=== PATIENT | female | born 1945 | race Caucasian/White ===

== ENCOUNTER 2022-04-30 09:17 | Inpatient (IN) | payer MEDICARE, SELFPAY ==
[2022-04-30] VITALS (50 sets, daily range): BP systolic 87–172; BP diastolic 43–131; PULSE 45–77; RESP 5–32; TEMP 36.4–37.5; O2SAT 93–100
--- NOTE | 2022-04-30 09:15 | RT.EKG_ITS ---
APPROVED REPORT Exam: Resting ECG Reason for Exam: CHEST PAIN Patient Location: E HR:59 bpm ECG Measurements Heart Rate 59 AXIS [place] 134 P 62 QRSd 91 QRS 20 QT 412 T 46 QTc 410 Conclusion Sinus bradycardia...rate< [address] elevation, lateral leads...ST >0.06mV, I aVL V5 V6. Sinus. T wave inversion in V1-3. No STEMI. No old EKG to compare.
[2022-04-30] MEDS: Normal Saline 500 ML IV (09:55)
--- NOTE | 2022-04-30 09:56 | W.ED.GENAD ---
Discharge Plan Disposition Patient Disposition: [facility] INPATIENT Condition: Poor Discharge Details Clinical Impression: COVID, Hypoxia Admit Date/Time: 04/30/22 14:01 Admit Provider: Jose M Tony Attending Provider: Jose M Tony Primary Care Provider: David Rae ED Provider: Malcolm Hernandez Discharge Data Discharge Date/Time-TO BE ENTERED AT DEPARTURE: 04/30/22 14:36 Medical Decision Making Patient presenting to the emergency department for chief complaint of worsening COVID symptoms. Approximately 7 days ago she started having COVID symptoms. There is initially doing okay but then on Wednesday she worsened. She was seen at [facility] and evaluated in the emergency department. At that time she requested to go home and was prescribed Tessalon Perles. Over the last 48 hours she states that she has significantly worsened in condition. EMS stated hypoxia upon arrival and placed patient on nasal cannula O2. Patient is no longer hypoxic but has a wet cough with diffuse rhonchi, frail and acutely ill in appearance and bradycardia noted. We will plan on checking labs and repeating COVID test along with chest x-ray. Pending results we will give Decadron, albuterol/ipratropium, and fluid bolus Please see physician interpretation for full interpretation of EKG. appears to be in sinus bradycardia, no acute STEMI but there is noted T wave inversion in V1 through 3. No previous EKGs available Reviewed labs which show a overall unremarkable CBC, D-dimer of 6000 344 so we will plan on performing CT imaging of the chest, lactate appropriate 0.9, CMP overall unremarkable, negative initial troponin. Procalcitonin less than 0.1 CRP slightly elevated at 0.4. Patient is COVID-positive and negative for influenza or RSV. Review of chest x-ray and radiologist interpretation shows no acute findings. staff nurse midwife did inform me that patient started to become slightly febrile so we will give acetaminophen and further DuoNeb. Spoke to radiologist in regards to CTA. Patient did not have any pulmonary embolism or acute worrisome findings. We will plan on admitting patient. Did speak to hospitalist in regards to admission who recommended to start remdesivir which order was placed. Patient in agreement with plan of care. Imaging Data Radiologic Study #2: Imaging: CT Scan Radiologist's impression: FINDINGS: CHEST: PULMONARY ARTERIES: There are no intraluminal filling defects to suggest acute pulmonary emboli. LUNGS: Right lung apex scarring. Mild benign-appearing increased markings in the posterior basal segment right lower lobe. Also lateral basal segment left lower lobe. There are no pleural effusions.. There are no confluent infiltrates nor pleural effusions. No significant focal findings in trachea and mainstem bronchi. MEDIASTINUM: There is no hilar nor mediastinal adenopathy. Thyroid gland is enlarged and contains nodules. The left lobe is larger than the right. CARDIAC: Heart size is upper normal. There is no pericardial effusion.Caliber of the ascending thoracic aorta is minimally prominent, measuring 3.9 cm. No dissection. Ventricular ratio is approximately 1:1 PARTIALLY VISUALIZED UPPERMOST ABDOMEN: Slightly thickened bilateral adrenal glands. No splenomegaly. Calcifications in the liver noted also calcifications in the pancreas, consistent chronic pancreatitis. OSSEOUS: No significant osseous lesions.No fractures.. IMPRESSION: 1. No evidence of acute pulmonary emboli. No evidence of pulmonary infarction.No pleural effusions. 2. Mild increased markings in the lung bases but no confluent infiltrates nor pleural effusions. No intrathoracic adenopathy. 3. Ascending thoracic aorta is enlarged, measuring 3.9 cm. However, there is no dissection evident. No pericardial effusion. Radiologic Study: Attestation: I personally reviewed and interpreted this imaging study as follows: Imaging: X-Ray Radiologist's impression: FINDINGS: Single AP portable view. Heart size is upper normal. The mediastinum is not widened. Lungs are clear. No infiltrates nor obvious pleural effusions. IMPRESSION: No acute pulmonary findings on this single AP portable view of the chest. Lab Data Lab results reviewed: Yes I reviewed the patient's lab results. HPI General Mode of arrival: ambulatory. Date/Time Provider Initiated Documentation: 04/30/22 09:23. Limitations to Documentation: no limitations. Information obtained by: patient and RN notes reviewed. History of Present Illness 76 year old F presents to the emergency department with the chief complaint of cough and chest tightness, described as moderate, with intensity rated at 5. Quality is described as aching, and is localized to the chest. Patient reports no radiation. Patient started experiencing this day(s) and it has been constant. No relieving factors improve symptom(s), No exacerbating factors reported . Patient notes cough, diaphoresis, fever/chills, loss of appetite, malaise and shortness of breath. Related Data Home Medications Medication Instructions Recorded Confirmed benzonatate 100 mg capsule 200 mg PO TID PRN 04/30/22 04/30/22 calcium carbonate 600 mg calcium 600 mg PO TID 04/30/22 04/30/22 (1,500 mg) tablet lisinopril 5 mg tablet 5 mg PO DAILY 04/30/22 04/30/22 methimazole 5 mg tablet 2.5 mg PO DAILY 04/30/22 04/30/22 metoprolol tartrate 100 mg tablet 50 mg PO BID 04/30/22 04/30/22 multivitamin 1 tab PO DAILY 04/30/22 04/30/22 Allergies Allergy/AdvReac Type Severity Reaction Status Date / Time bee venom protein (honey bee) Allergy Anaphylaxis Unverified 04/30/22 09:26 Penicillins Allergy Unverified 04/30/22 09:26 General Stated Complaint: GenMedical CODY: 2 Review of Systems Constitutional Constitutional: Reports chills, Reports fever(s), Reports headache(s), Reports malaise and Reports poor appetite ENT Ears, Nose, Mouth, and Throat: Denies dizziness, Reports headache(s), Denies nasal congestion, Denies nasal discharge, Denies neck pain and Denies sore throat Cardiovascular Cardiovascular: Reports chest pain, Denies syncope, Denies pedal edema and Reports dyspnea Respiratory Respiratory: Reports cough, Reports pain with cough, Reports dyspnea and Denies wheezing Gastrointestinal Gastrointestinal: Denies abdominal pain, Denies loose stools, Denies nausea and Denies vomiting Genitourinary Genitourinary: Denies dysuria Musculoskeletal Musculoskeletal: Denies back pain and Denies neck pain Integumentary/Breasts Skin/Breast: Denies rash Neurologic Neurologic: Denies confusion, Denies dizziness, Denies syncope and Reports headache(s) Psychiatric Psychiatric: Denies confusion Allergic/Immunologic Allergic/Immunologic: Denies wheezing PFSH All Active Problems (Updated 04/30/22 @ 19:12 by Arlen Rausch NP) DVT prophylaxis (Acute) Discharge planning issues (Acute) COVID (Acute) Hypoxia (Acute) Hyperlipidemia (Acute) Hypertension (Chronic) Social History Smoking/Tobacco Use Status: Current every day Tobacco Type: cigarettes Years smoked: 20 Smoking risk assessment performed?: Yes Alcohol Intake: former Substance use type: does not use Do you feel safe at home: Yes Do you feel safe in your relationship?: Yes Exam Const General: cooperative, frail appearing and ill appearing acutely Nutritional Appearance: thin Orientation: alert and awake [facility] Head: normal to inspection, normocephalic and atraumatic Ears: hearing grossly normal bilaterally and TM's normal bilaterally General nose exam: external nose normal Face and sinus: no erythema Mouth: no muffled voice Neck Neck: normal visual inspection, full ROM, no lymphadenopathy, no meningeal signs, trachea midline and supple Resp Effort & Inspection: normal respiratory effort, able to speak in complete sentences, cough Quality of cough: actively coughing, labored and tachypneic Auscultation: diminished lung sounds bilaterally throughout and rhonchi lower bilaterally Cardio Rate: regular rate Rhythm: regular rhythm Heart Sounds: S1 normal, S2 normal, normal S1 and S2, no click, no gallops, no murmurs and no rubs Back/Spine/Pelvis Thoracic/Lumbar Spine: kyphosis and mass (Mid and lower thoracic spine masses mobile and movable) Skin General skin exam: no rashes or lesions noted and dry skin (warm) Neuro General: patient alert, patient awake, patient oriented x3, gait normal and moves all extremities Cognition: normal cognition Speech: speech normal Course Vital Signs Vital signs: Vital Signs Temperature 36.9 C 04/30/22 09:06 Pulse 77 04/30/22 09:06 Respiratory Rate 28 H 04/30/22 09:06 Blood Pressure 172/69 H 04/30/22 09:06 Pulse Oximetry 98 04/30/22 09:06 Temperature 36.9 C 04/30/22 09:06 Temperature Source Skin 04/30/22 09:06 Pulse 77 04/30/22 09:06 Pulse 66 04/30/22 09:25 Respiratory Rate 29 H 04/30/22 09:29 Respiratory Effort 04/30/22 09:29 Respiratory Depth Shallow 04/30/22 09:29 Respiratory Pattern Tachypnea 04/30/22 09:29 Blood Pressure 172/69 H 04/30/22 09:06 Blood Pressure Position Supine 04/30/22 09:06 Pulse Oximetry 98 04/30/22 09:06 Oxygen Delivery Method Nasal Cannula 04/30/22 09:06 Oxygen Flow Rate 4 04/30/22 09:06 Pain Level 5 04/30/22 09:06 Lab/Test Results Lab/Test Results: 04/30/22 09:41 Blood Blood Culture - Pending 04/30/22 09:41 Blood Blood Culture - Pending
[2022-04-30 10:02] LABS: Abs Immature Grans 0.02 10^3/uL (0.0-0.06); Absolute Basophil Count 0.01 10^3/uL (0.0-0.2); Absolute Eosinophil Count 0.01 10^3/uL (0.0-0.7); Absolute Lymphocyte Count 1.59 10^3/uL (1.2-3.4); Absolute Monocyte Count 0.82 10^3/uL (0.1-0.8); Basophils % 0.1; Eosinophils % 0.1; HCT 39.3 % (36.0-46.0); HGB 13.3 g/dL (11.2-15.7); Immature Grans % 0.3; Lymphocytes % 21.1; MCH 32.4 pg (27.0-33.0); MCHC 33.8 % (32.0-36.0); MCV 96 fL (80-95); MPV 12.2 fL (8.0-11.0); Monocytes % 10.9; Neutrophils % 67.5; Platelet Count 176 10^3/uL (130-400); RDW 12.4 % (11.7-14.6); RDW-SD 43.5 fL; WBC 7.55 10^3/uL (4.4-10.8)
[2022-04-30 10:20] LABS: ALT 25 U/L (14-59); AST 25 U/L (15-37); Albumin 3.3 g/dL (3.4-5.0); Alkaline Phosphatase 62 U/L (46-116); Anion Gap 5.4 mmol/L (3-11); BUN 11 mg/dL (7-18); Bilirubin, Total 0.5 mg/dL (0.2-1.0); CO2 30.6 mmol/L (21.0-32.0); CREATININE 0.8 mg/dL (0.55-1.02); Calcium 9.1 mg/dL (8.5-10.1); Chloride 101 mmol/L (98-107); Estimated GFR 75.37 (mL/min/1.73m2); Glucose 109 mg/dL (74-106); Potassium 4.3 mmol/L (3.5-5.1); Sodium 137 mmol/L (136-145); Total Protein 7.4 g/dL (6.4-8.2); Troponin I < 50 ng/L (<or=60)
[2022-04-30 10:26] LABS: Lactate 0.9 mmol/L (0.6-1.4)
--- NOTE | 2022-04-30 10:41 | DI.RAD_ITS ---
Exam(s) XR PORTABLE CHEST AP EXAM: XR PORTABLE CHEST AP CLINICAL HISTORY: Cough Covid +. TECHNIQUE: 2D digital imaging was performed. COMPARISON: No exams were available for comparison FINDINGS: Single AP portable view. Heart size is upper normal. The mediastinum is not widened. Lungs are clear. No infiltrates nor obvious pleural effusions. IMPRESSION: No acute pulmonary findings on this single AP portable view of the chest. DATA REPOSITORY: RADIATION DOSE DELIVERED: All CT scans at this facility use at least one of these dose optimization techniques: automated exposure control; mA and/or kV adjustment per patient size (includes targeted e xams where dose is matched to clinical indication); or iterative reconstruction.
[2022-04-30 10:42] LABS: Influenza A PCR Negative (Negative); Influenza B PCR Negative (Negative); RSV PCR Negative (Negative)
[2022-04-30] MEDS: Albuterol/Ipratropium 3 ML UPD VIAL UPD ×2 (10:42→12:41)
[2022-04-30 10:47] LABS: Source Nasopharynx
[2022-04-30 10:48] LABS: COVID-19 PCR Positive (Negative)
[2022-04-30 10:50] LABS: D-Dimer 6344 ng/mlFEU (<500)
[2022-04-30 10:51] LABS: Procalcitonin < 0.1 ng/mL
[2022-04-30] MEDS: Dexamethasone 10 MG/ML VIAL IVP (12:33)
[2022-04-30] MEDS: Albuterol/Ipratropium 3 ML UPD VIAL (12:41)
[2022-04-30] MEDS: Acetaminophen 325 MG TAB 650 MG PO ×2 (12:42→15:49)
[2022-04-30] MEDS: Omnipaque 350 MG/ML 100 ML BTL IJ (13:01)
[2022-04-30 13:03] LABS: Troponin I < 50 ng/L (<or=60)
--- NOTE | 2022-04-30 13:05 | DI.CT_ITS ---
Exam(s) CT CHEST PE CTA EXAM: CT CHEST PE CTA CLINICAL HISTORY: Shortness of Breath elevated D-dimer. TECHNIQUE: Imaging Protocol: CT angiography of the chest was performed using pulmonary embolus natalie col. Multi planar reconstructions were performed. CONTRAST MATERIAL: Intravenous: Omnipaque 350 Contrast volume: 100 cc COMPARISON: CR XR PORTABLE CHEST AP from 04/30/2022 FINDINGS: CHEST: PULMONARY ARTERIES: There are no intraluminal filling defects to suggest acute pulmonary emboli. LUNGS: Right lung apex scarring. Mild benign-appearing increased markings in the posterior basal seg ment right lower lobe. Also lateral basal segment left lower lobe. There are no pleural effusions.. There are no confluent infiltrates nor pleural effusions. No significant focal findings in trachea and mainstem bronchi. MEDIASTINUM: There is no hilar nor mediastinal adenopathy. Thyroid gland is enlarged and contains nod ules. The left lobe is larger than the right. CARDIAC: Heart size is upper normal. There is no pericardial effusion.Caliber of the ascending thora cic aorta is minimally prominent, measuring 3.9 cm. No dissection. Ventricular ratio is approximate ly 1:1 PARTIALLY VISUALIZED UPPERMOST ABDOMEN: Slightly thickened bilateral adrenal glands. No splenomegaly . Calcifications in the liver noted also calcifications in the pancreas, consistent chronic pancreat itis. OSSEOUS: No significant osseous lesions.No fractures.. IMPRESSION: 1. No evidence of acute pulmonary emboli. No evidence of pulmonary infarction.No pleural effusions. 2. Mild increased markings in the lung bases but no confluent infiltrates nor pleural effusions. No intrathoracic adenopathy. 3. Ascending thoracic aorta is enlarged, measuring 3.9 cm. However, there is no dissection evident. No pericardial effusion. RADIATION DOSE DELIVERED: 154.72mGy.cm Total DLP DATA REPOSITORY: All CT scans at this facility are submitted to the National Radiology Data Registry (NRDR) Dose Index Registry (DIR) with the [employer] (A[employer]). RADIATION OPTIMIZATION: All CT scans at this facility use at least one of these dose optimization te chniques: automated exposure control; mA and/or kV adjustment per patient size (includes targeted exa ms where dose is matched to clinical indication); or iterative reconstruction.
[2022-04-30] MEDS: Normal Saline Flush 10 ML SYR IVP ×2 (14:53→21:37)
[2022-04-30] MEDS: REMDESIVIR 200 MG in Normal Saline 250 ML 250 MG IVPB (14:53)
--- NOTE | 2022-04-30 17:30 | RT.EKG_ITS ---
APPROVED REPORT Exam: Resting ECG Reason for Exam: Chest pressure 3/10 Patient Location: I HR:70 bpm ECG Measurements Heart Rate 70 AXIS [place] 135 P 49 QRSd 90 QRS -16 QT 410 T 25 QTc 443 Conclusion Sinus rhythm...normal P axis, V-rate 50- 99 Borderline left axis deviation...QRS axis (-15,-29) RSR' in V1 or V2, probably normal variant...small R' only Borderline T abnormalities, anterior leads...T flat or neg, V2-V4
[2022-04-30] MEDS: Enoxaparin 60 MG/0.6 ML SYR 50 MG SC (18:18)
--- NOTE | 2022-04-30 19:02 | HPE_ITS ---
Date of service: 04/30/22 Time of Service: 19:02 Assessment and Plan Assessment and plan (1) COVID: Status: Acute Assessment and plan: Treat symptomsl; remdesivir x 5 d (2) Hypoxia: Status: Acute Assessment and plan: Lungs are currently clear; no increased work of breathing. oxygen prn, inhalers (3) Hyperlipidemia: Status: Acute Assessment and plan: Continue home med (4) Hypertension: Status: Chronic Assessment and plan: BP stable - continue home med (5) DVT prophylaxis: Status: Acute Assessment and plan: therapeutic enoxaparin 60 mg BID (6) Discharge planning issues: Status: Acute Assessment and plan: Plan to discharge home with no services History of Present Illness History of Present Illness Chief Complaint: Cough, feeling weak Narrative: This is a 76-year-old female patient that presented to the [facility] emergency department with the chief complaint of worsening COVID symptoms. Approximately seven days ago, she started having COVID symptoms, cough, chills, fever, malaise, and weakness. She was initially doing okay, but then on Wednesday, she worsened. She was seen at [facility] and evaluated in the emergency department. At that time, she requested to go home and was prescribed Tessalon Perles. Over the last 48 hours, she stated her symptoms were worse. EMS stated she was hypoxic upon their arrival and was placed on nasal cannula O2. The patient was no longer hypoxic on arrival to the ED but had a wet cough with diffuse rhonchi, frail and acutely ill appearance, and bradycardic. She was given Decadron, albuterol/ipratropium, and a fluid bolus. Please see the physician's interpretation for a complete interpretation of the EKG. There is sinus bradycardia and no acute STEMI, but there are noted T wave inversion in V1 through 3. No previous EKGs were available?reviewed labs showed an overall unremarkable CBC, D-dimer of 6344. CT imaging of the chest was negative for PE. She has negative lactate and CMP overall unremarkable, negative initial troponin. Procalcitonin less than 0.1. CRP slightly elevated at 0.4. The patient is COVID-positive and negative for influenza or RSV. A review of chest x-ray and radiologist interpretation showed no acute findings. She did have a fever and was given Tylenol. She is being admitted to the hospital for remdesivir and medical management. Review of Systems All systems reviewed & are unremarkable except as noted in HPI and below PFSH All Active Problems (Updated 04/30/22 @ 19:12 by Arlen Rausch NP) DVT prophylaxis (Acute) Discharge planning issues (Acute) COVID (Acute) Hypoxia (Acute) Hyperlipidemia (Acute) Hypertension (Chronic) Social History Smoking/Tobacco Use Status: Current every day Tobacco Type: cigarettes Years smoked: 20 Smoking risk assessment performed?: Yes Alcohol Intake: former Substance use type: does not use Do you feel safe at home: Yes Do you feel safe in your relationship?: Yes Meds Allergies and Home Medications Allergies Allergy/AdvReac Type Severity Reaction Status Date / Time bee venom protein (honey bee) Allergy Anaphylaxis Unverified 04/30/22 09:26 Penicillins Allergy Unverified 04/30/22 09:26 Home Medications Medication Instructions Recorded Confirmed Type benzonatate 100 mg capsule 200 mg PO TID PRN 04/30/22 04/30/22 History calcium carbonate 600 mg calcium 600 mg PO TID 04/30/22 04/30/22 History (1,500 mg) tablet lisinopril 5 mg tablet 5 mg PO DAILY 04/30/22 04/30/22 History methimazole 5 mg tablet 2.5 mg PO DAILY 04/30/22 04/30/22 History metoprolol tartrate 100 mg tablet 50 mg PO BID 04/30/22 04/30/22 History multivitamin 1 tab PO DAILY 04/30/22 04/30/22 History Exam Const General: cooperative, frail appearing and ill appearing acutely Nutritional Appearance: thin Orientation: alert and awake [facility] Head: normal to inspection, normocephalic and atraumatic Ears: hearing grossly normal bilaterally and TM's normal bilaterally General nose exam: external nose normal Face and sinus: no erythema Mouth: no muffled voice Neck Neck: normal visual inspection, full ROM, no lymphadenopathy, no meningeal signs, trachea midline and supple Resp Effort & Inspection: normal respiratory effort, able to speak in complete sentences, cough Quality of cough: actively coughing, labored and tachypneic Auscultation: diminished lung sounds bilaterally throughout and rhonchi lower bilaterally Cardio Rate: regular rate Rhythm: regular rhythm Heart Sounds: S1 normal, S2 normal, normal S1 and S2, no click, no gallops, no murmurs and no rubs Back/Spine/Pelvis Thoracic/Lumbar Spine: kyphosis Skin General skin exam: no rashes or lesions noted and dry skin (warm) Neuro General: patient alert, patient awake, patient oriented x3, gait normal and moves all extremities Cognition: normal cognition Speech: speech normal Results Labs Result diagrams: 05/03/22 06:08 05/03/22 06:08 Labs: Laboratory Results - last 24 hr 04/30/22 04/30/22 04/30/22 09:45 09:45 09:45 WBC 7.55 RBC 4.10 Hgb 13.3 Hct 39.3 MCV 96 H MCH 32.4 MCHC 33.8 RDW 12.4 Plt Count 176 MPV 12.2 H Immature Gran % 0.3 Neutrophils % 67.5 Lymphocytes % 21.1 Monocytes % 10.9 Eosinophils % 0.1 Basophils % 0.1 Nucleated RBC % 0.0 Absolute Neutrophils 5.10 Absolute Lymphocytes 1.59 Absolute Monocytes 0.82 H Absolute Eosinophils 0.01 Absolute Basophils 0.01 D-Dimer 6344 H VBG Lactate Sodium 137 Potassium 4.3 Chloride 101 Carbon Dioxide 30.6 Anion Gap 5.4 BUN 11 Creatinine 0.8 Est GFR (CKD-EPI 2020) 75.37 Glucose 109 H Calcium 9.1 Total Bilirubin 0.5 AST 25 ALT 25 Alkaline Phosphatase 62 Troponin I < 50 C-Reactive Protein 0.40 H Total Protein 7.4 Albumin 3.3 L Procalcitonin COVID-19 Source SARS-CoV-2 (PCR) Influenza Type A (PCR) Influenza Type B (PCR) RSV (PCR) 04/30/22 04/30/22 04/30/22 09:45 09:47 09:56 WBC RBC Hgb Hct MCV MCH MCHC RDW Plt Count MPV Immature Gran % Neutrophils % Lymphocytes % Monocytes % Eosinophils % Basophils % Nucleated RBC % Absolute Neutrophils Absolute Lymphocytes Absolute Monocytes Absolute Eosinophils Absolute Basophils D-Dimer VBG Lactate Sodium Potassium Chloride Carbon Dioxide Anion Gap BUN Creatinine Est GFR (CKD-EPI 2020) Glucose Calcium Total Bilirubin AST ALT Alkaline Phosphatase Troponin I Cancelled C-Reactive Protein Total Protein Albumin Procalcitonin < 0.1 COVID-19 Source Nasopharynx SARS-CoV-2 (PCR) Positive A Influenza Type A (PCR) Negative Influenza Type B (PCR) Negative RSV (PCR) Negative 04/30/22 04/30/22 10:18 12:32 WBC RBC Hgb Hct MCV MCH MCHC RDW Plt Count MPV Immature Gran % Neutrophils % Lymphocytes % Monocytes % Eosinophils % Basophils % Nucleated RBC % Absolute Neutrophils Absolute Lymphocytes Absolute Monocytes Absolute Eosinophils Absolute Basophils D-Dimer VBG Lactate 0.9 Sodium Potassium Chloride Carbon Dioxide Anion Gap BUN Creatinine Est GFR (CKD-EPI 2020) Glucose Calcium Total Bilirubin AST ALT Alkaline Phosphatase Troponin I < 50 C-Reactive Protein Total Protein Albumin Procalcitonin COVID-19 Source SARS-CoV-2 (PCR) Influenza Type A (PCR) Influenza Type B (PCR) RSV (PCR) Last Vital Signs Temp 36.4 C L 04/30/22 17:35 Pulse 68 04/30/22 17:35 Resp 24 04/30/22 17:35 BP 147/72 H 04/30/22 17:35 Pulse Ox 93 04/30/22 17:35
[2022-04-30 19:21] LABS: Troponin I < 50 ng/L (<or=60)
[2022-04-30] MEDS: Melatonin 3 MG TAB PO (21:37)
[2022-05-01] VITALS (9 sets, daily range): BP systolic 130–155; BP diastolic 72–91; PULSE 52–96; RESP 12–30; TEMP 36–36.5; O2SAT 93–98
[2022-05-01] MEDS: Enoxaparin 60 MG/0.6 ML SYR 50 MG SC ×2 (06:12→17:24)
[2022-05-01 07:59] LABS: Abs Immature Grans 0.04 10^3/uL (0.0-0.06); Absolute Basophil Count 0.02 10^3/uL (0.0-0.2); Absolute Monocyte Count 0.64 10^3/uL (0.1-0.8); Absolute Neutrophil Count 8.06 10^3/uL (1.2-6.7); Basophils % 0.2; Immature Grans % 0.4; Lymphocytes % 17.8; MCH 32.2 pg (27.0-33.0); MCHC 33.3 % (32.0-36.0); MCV 97 fL (80-95); MPV 12.1 fL (8.0-11.0); Neutrophils % 75.6; Platelet Count 156 10^3/uL (130-400); RBC 3.73 10^6/uL (3.93-5.22); RDW 12.5 % (11.7-14.6); RDW-SD 44.1 fL; WBC 10.66 10^3/uL (4.4-10.8)
[2022-05-01] MEDS: Normal Saline Flush 10 ML SYR IVP (08:08)
[2022-05-01] MEDS: Dexamethasone 10 MG/ML VIAL 6 MG IVP (08:08)
[2022-05-01 08:09] LABS: Prothrombin Time 10.4 sec (9.3-11.0)
[2022-05-01 08:20] LABS: ALT 23 U/L (14-59); AST 21 U/L (15-37); Albumin 2.9 g/dL (3.4-5.0); Alkaline Phosphatase 55 U/L (46-116); Anion Gap 6.4 mmol/L (3-11); BUN 16 mg/dL (7-18); Bilirubin, Direct 0.1 mg/dL (0.0-0.2); Bilirubin, Total 0.4 mg/dL (0.2-1.0); CO2 28.6 mmol/L (21.0-32.0); CREATININE 0.9 mg/dL (0.55-1.02); Calcium 8.5 mg/dL (8.5-10.1); Chloride 104 mmol/L (98-107); Estimated GFR 65.44 (mL/min/1.73m2); Glucose 110 mg/dL (74-106); Potassium 4.3 mmol/L (3.5-5.1); Sodium 139 mmol/L (136-145); Total Protein 6.9 g/dL (6.4-8.2)
[2022-05-01 08:24] LABS: D-Dimer 4792 ng/mlFEU (<500)
[2022-05-01 10:05] LABS: Ferritin 395 ng/mL (8-252); Magnesium 2.1 mg/dL (1.8-2.4)
[2022-05-01 10:17] LABS: C-Reactive Protein 0.53 mg/dL (0.0-0.3); Creatine Kinase 29 U/L (26-192); LDH 187 U/L (81-234)
--- NOTE | 2022-05-01 10:29 | INITIAL_ITS ---
- If Service Date Differs Date of service: 05/01/22 Time of Service: 10:29 Care Management Initial Assess REASON FOR HOSPITALIZATION:: Covid PAST MEDICAL HISTORY/PAST SURGICAL HISTORY:: All Active Problems (Updated 04/30/22 @ 19:12 by Arlen Rausch NP). DVT prophylaxis (Acute). Discharge planning issues (Acute). COVID (Acute). Hypoxia (Acute). Hyperlipidemia (Acute). Hypertension (Chronic) PREVIOUS FUNCTIONAL STATUS/SOCIAL/FAMILY SUPPORTS:: Sarah lives in a single family home in [place] with her son Shiva. She has another son Trace who lives in [facility] who is also supportive. Arlen uses a walker for ambulatory as sistance as she has osteoporosis. She stated that Shiva takes care of her but has his own health issues and is trying to get on disability. They do not currently receive any services at home. CURRENT FUNCTIONAL STATUS:: Sarah is on Covid precautions so CM was unable to meet with her in person. CM did connect with her on the phone and Arlen was agreeable to conversation. She explained that she has trouble breathing and starts coughing when she moves too quickly. She also explained that she has been seen at [facility] on Wednesday but was sent home. ADVANCE DIRECTIVES:: none on file Has patient been provided with info about the portal/API?: Yes Did the patient sign up for the portal?: No CODE STATUS:: Full Code INSURANCE COVERAGE / FINANCIAL ISSUES:: [facility] Medicare replacement plan CURRENT HOME/COMMUNITY SERVICES/EQUIPMENT:: none on file PRIMARY CARE PHYSICIAN:: Simón spencer POTENTIAL DISCHARGE NEEDS:: follow up with PCP and plan of care PATIENT/FAMILY EDUCATION NEEDS:: Review of discharge instructions, activity, limitations, follow up plan, [employer] Me [employer] TRANSPORTATION:: via private vehicle with family PLAN:: Sarah will grecialey return home, possibly with new home health services. She will follow up with her PCP and plan of care and transport with family. CM will offer support to Anish and her dsicharge needs.
[2022-05-01] MEDS: REMDESIVIR 100 MG in Normal Saline 250 ML 250 MG IVPB (14:14)
[2022-05-01] MEDS: Docusate Sodium 100 MG/10 ML CUP PO (17:25)
--- NOTE | 2022-05-01 18:45 | RT.EKG_ITS ---
APPROVED REPORT Exam: Resting ECG Reason for Exam: Left chest tightness Patient Location: I HR:67 bpm ECG Measurements Heart Rate 67 AXIS RI 128 P 66 QRSd 83 QRS -1 QT 406 T 56 QTc 429 Conclusion Sinus rhythm...normal P axis, V-rate 50- 99 Abnormal T, consider ischemia, anterior leads...T <-0.20mV, V2-V4
[2022-05-01] MEDS: Melatonin 3 MG TAB PO (21:02)
[2022-05-02] VITALS (8 sets, daily range): BP systolic 123–144; BP diastolic 69–84; PULSE 49–105; RESP 12–23; TEMP 36–37.1; O2SAT 95–97
[2022-05-02] MEDS: Enoxaparin 60 MG/0.6 ML SYR 50 MG SC ×2 (06:39→17:30)
[2022-05-02] MEDS: Normal Saline Flush 10 ML SYR IVP ×2 (08:09→21:33)
[2022-05-02] MEDS: Dexamethasone 10 MG/ML VIAL 6 MG IVP (08:09)
[2022-05-02 09:07] LABS: Abs Immature Grans 0.04 10^3/uL (0.0-0.06); Absolute Basophil Count 0.01 10^3/uL (0.0-0.2); Absolute Eosinophil Count 0.01 10^3/uL (0.0-0.7); Absolute Lymphocyte Count 2.44 10^3/uL (1.2-3.4); Basophils % 0.1; Eosinophils % 0.1; HCT 39.2 % (36.0-46.0); HGB 13.4 g/dL (11.2-15.7); Immature Grans % 0.3; Lymphocytes % 17.5; MCH 32.6 pg (27.0-33.0); MCHC 34.2 % (32.0-36.0); MCV 95 fL (80-95); MPV 12.5 fL (8.0-11.0); Monocytes % 6.2; Neutrophils % 75.8; RBC 4.11 10^6/uL (3.93-5.22); RDW 12.5 % (11.7-14.6); RDW-SD 43.9 fL; WBC 13.95 10^3/uL (4.4-10.8)
[2022-05-02 09:11] LABS: Absolute Monocyte Count 0.86 10^3/uL (0.1-0.8); Absolute Neutrophil Count 10.57 10^3/uL (1.2-6.7)
[2022-05-02 09:21] LABS: Anion Gap 9.1 mmol/L (3-11); BUN 17 mg/dL (7-18); CO2 27.9 mmol/L (21.0-32.0); CREATININE 0.8 mg/dL (0.55-1.02); Calcium 8.7 mg/dL (8.5-10.1); Chloride 104 mmol/L (98-107); Estimated GFR 75.37 (mL/min/1.73m2); Glucose 130 mg/dL (74-106); Potassium 3.6 mmol/L (3.5-5.1); Sodium 141 mmol/L (136-145)
[2022-05-02 09:27] LABS: Platelet Count 188 10^3/uL (130-400)
[2022-05-02 09:28] LABS: Diff Comment Agrees w/ Instrument; RBC Morphology Normal
[2022-05-02] MEDS: Potassium Chloride 20 MEQ TABCR PO ×2 (10:45→17:30)
[2022-05-02 10:57] LABS: Lab Add On Test DONE
[2022-05-02 11:11] LABS: Troponin I < 50 ng/L (<or=60)
[2022-05-02] MEDS: REMDESIVIR 100 MG in Normal Saline 250 ML 250 MG IVPB (14:42)
--- NOTE | 2022-05-02 16:54 | NUR.NOTE ---
Nursing Note: Documentation reviewed Nolberto Weston RN CMSRN.
[2022-05-02] MEDS: Dronabinol 2.5 MG CAP PO (17:29)
--- NOTE | 2022-05-02 17:43 | NUR.NOTE ---
Nursing Note: While performing care with the patient this afternoon, patient stood up and her underwear fell off of her , literally. Patient made a comment about losing weight. Concern that patient's lack of appetite has been a problem since before this illness and admission. Addressed concerns to the [employer]. Requested a nutrition consult. She ordered this as well as ordered Marinol. also as a point of safety, patient has requested that all 4 side rails be raised on the bed. She stated she doesn't feel safe otherwise
[2022-05-02] MEDS: Melatonin 3 MG TAB PO (21:33)
[2022-05-03 02:45] VITALS: BP 135/73; PULSE 59; RESP 14; TEMP 36.5; O2SAT 96
[2022-05-03] MEDS: Enoxaparin 60 MG/0.6 ML SYR 50 MG SC ×2 (06:07→17:03)
[2022-05-03 06:23] LABS: Abs Immature Grans 0.05 10^3/uL (0.0-0.06); Absolute Basophil Count 0.01 10^3/uL (0.0-0.2); Absolute Lymphocyte Count 2.31 10^3/uL (1.2-3.4); Absolute Neutrophil Count 6.47 10^3/uL (1.2-6.7); Basophils % 0.1; HCT 38.2 % (36.0-46.0); HGB 13.3 g/dL (11.2-15.7); Immature Grans % 0.5; Lymphocytes % 23.7; MCH 33.1 pg (27.0-33.0); MCHC 34.8 % (32.0-36.0); MCV 95 fL (80-95); MPV 12.2 fL (8.0-11.0); Monocytes % 9.2; Neutrophils % 66.5; Platelet Count 202 10^3/uL (130-400); RBC 4.02 10^6/uL (3.93-5.22); RDW 12.5 % (11.7-14.6); WBC 9.74 10^3/uL (4.4-10.8)
[2022-05-03 06:43] LABS: BUN 20 mg/dL (7-18); CREATININE 0.8 mg/dL (0.55-1.02); Calcium 8.5 mg/dL (8.5-10.1); Chloride 104 mmol/L (98-107); Estimated GFR 75.37 (mL/min/1.73m2); Glucose 97 mg/dL (74-106); Magnesium 1.9 mg/dL (1.8-2.4); Potassium 4.4 mmol/L (3.5-5.1); Sodium 139 mmol/L (136-145)
--- NOTE | 2022-05-03 07:23 | PGE_ITS ---
Date of Service Date of service: 05/01/22 Time of Service: 12:00 Assessment and Plan Assessment and plan (1) COVID: Status: Acute Assessment and plan: Treat symptomsl; remdesivir x 5 d Improving, no worsening symptoms (2) Hypoxia: Status: Acute Assessment and plan: Lungs are currently clear; no increased work of breathing. oxygen prn, inhalers - SPO2 > 94% NC 2 LPM - asked nursing to ween (3) Anorexia: Status: Acute Assessment and plan: Nursing reports Arlen is not eating, this is a chronic problem, protein supplements encouraged (4) Hyperlipidemia: Status: Acute Assessment and plan: Continue home med (5) Hypertension: Status: Chronic Assessment and plan: BP stable - continue home med (6) DVT prophylaxis: Status: Acute Assessment and plan: therapeutic enoxaparin 60 mg BID (7) Discharge planning issues: Status: Acute Assessment and plan: Plan to discharge home 05/03/22 if continues to improve and off oxygen. with no services, Subjective Subjective Patient reports: no new complaints Interval history since last seen: Arlen had a brief period of chest tightness with no SOB, no need for medication, suspect intercostal pain from coughing - EKG, troponin neg for LA, continued on oxygen Exam Const General: cooperative, frail appearing and ill appearing acutely Nutritional Appearance: thin Orientation: alert and awake [facility] Head: normal to inspection, normocephalic and atraumatic Ears: hearing grossly normal bilaterally and TM's normal bilaterally General nose exam: external nose normal Face and sinus: no erythema Mouth: no muffled voice Neck Neck: normal visual inspection, full ROM, no lymphadenopathy, no meningeal signs, trachea midline and supple Resp Effort & Inspection: normal respiratory effort, able to speak in complete sentences and tachypneic Auscultation: diminished lung sounds bilaterally throughout Cardio Rate: regular rate Rhythm: regular rhythm Heart Sounds: S1 normal, S2 normal, normal S1 and S2, no click, no gallops, no murmurs and no rubs Back/Spine/Pelvis Thoracic/Lumbar Spine: kyphosis Skin General skin exam: no rashes or lesions noted and dry skin (warm) Neuro General: patient alert, patient awake, patient oriented x3, gait normal and moves all extremities Cognition: normal cognition Speech: speech normal Objective Last Vital Signs Temp 36.5 C 05/03/22 02:45 Pulse 59 L 05/03/22 02:45 Resp 14 05/03/22 02:45 BP 135/73 05/03/22 02:45 Pulse Ox 96 05/03/22 02:45 Laboratory Results - last 24 hr 05/02/22 05/02/22 05/02/22 08:45 08:45 08:45 WBC 13.95 H RBC 4.11 Hgb 13.4 Hct 39.2 MCV 95 MCH 32.6 MCHC 34.2 RDW 12.5 Plt Count 188 MPV 12.5 H Immature Gran % 0.3 Neutrophils % 75.8 Lymphocytes % 17.5 Monocytes % 6.2 Eosinophils % 0.1 Basophils % 0.1 Nucleated RBC % 0.0 Absolute Neutrophils 10.57 H Absolute Lymphocytes 2.44 Absolute Monocytes 0.86 H Absolute Eosinophils 0.01 Absolute Basophils 0.01 RBC Morphology Normal Sodium 141 Potassium 3.6 Chloride 104 Carbon Dioxide 27.9 Anion Gap 9.1 BUN 17 Creatinine 0.8 Est GFR (CKD-EPI 2020) 75.37 Glucose 130 H Calcium 8.7 Magnesium Troponin I Add-On Test Request DONE 05/02/22 05/03/22 05/03/22 08:45 06:08 06:08 WBC 9.74 RBC 4.02 Hgb 13.3 Hct 38.2 MCV 95 MCH 33.1 H MCHC 34.8 RDW 12.5 Plt Count 202 MPV 12.2 H Immature Gran % 0.5 Neutrophils % 66.5 Lymphocytes % 23.7 Monocytes % 9.2 Eosinophils % 0.0 Basophils % 0.1 Nucleated RBC % 0.0 Absolute Neutrophils 6.47 Absolute Lymphocytes 2.31 Absolute Monocytes 0.90 H Absolute Eosinophils 0.00 Absolute Basophils 0.01 RBC Morphology Sodium 139 Potassium 4.4 Chloride 104 Carbon Dioxide 30.0 Anion Gap 5.0 BUN 20 H Creatinine 0.8 Est GFR (CKD-EPI 2020) 75.37 Glucose 97 Calcium 8.5 Magnesium 1.9 Troponin I < 50 Add-On Test Request Reviewed Pertinent PMH: Yes
--- NOTE | 2022-05-03 07:24 | PGE_ITS ---
Date of Service Date of service: 05/02/22 Time of Service: 13:00 Assessment and Plan Assessment and plan (1) COVID: Status: Acute Assessment and plan: Treat symptomsl; remdesivir day 3 Improving, no worsening symptoms (2) Hypoxia: Status: Acute Assessment and plan: Lungs are currently clear; no increased work of breathing. oxygen prn, inhalers - SPO2 > 96% NC 2 LPM - asked nursing to ween (3) Anorexia: Status: Acute Assessment and plan: Nursing reports Arlen is not eating, this is a chronic problem, protein supplements encouraged - nutrition consult Added Donabinol in attempt to promote appetite and improve intake (4) Hyperlipidemia: Status: Acute Assessment and plan: Continue home med (5) Hypertension: Status: Chronic Assessment and plan: BP stable - continue home med (6) DVT prophylaxis: Status: Acute Assessment and plan: therapeutic enoxaparin 60 mg BID (7) Discharge planning issues: Status: Acute Assessment and plan: Plan to discharge home 05/03/22 if continues to improve and off oxygen. with no services, Subjective Subjective Patient reports: no new complaints Interval history since last seen: Improving, Redesivir day 2, cough improving, continues not to eat well. Exam Const General: cooperative, frail appearing and ill appearing acutely Nutritional Appearance: thin Orientation: alert and awake [facility] Head: normal to inspection, normocephalic and atraumatic Ears: hearing grossly normal bilaterally and TM's normal bilaterally General nose exam: external nose normal Face and sinus: no erythema Mouth: no muffled voice Neck Neck: normal visual inspection, full ROM, no lymphadenopathy, no meningeal signs, trachea midline and supple Resp Effort & Inspection: normal respiratory effort and able to speak in complete sentences Auscultation: diminished lung sounds bilaterally throughout Cardio Rate: regular rate Rhythm: regular rhythm Heart Sounds: S1 normal, S2 normal, normal S1 and S2, no click, no gallops, no murmurs and no rubs Back/Spine/Pelvis Thoracic/Lumbar Spine: kyphosis Skin General skin exam: no rashes or lesions noted and dry skin (warm) Neuro General: patient alert, patient awake, patient oriented x3, gait normal and moves all extremities Cognition: normal cognition Speech: speech normal Objective Last Vital Signs Temp 36.5 C 05/03/22 02:45 Pulse 59 L 05/03/22 02:45 Resp 14 05/03/22 02:45 BP 135/73 05/03/22 02:45 Pulse Ox 96 05/03/22 02:45 Laboratory Results - last 24 hr 05/02/22 05/02/22 05/02/22 08:45 08:45 08:45 WBC 13.95 H RBC 4.11 Hgb 13.4 Hct 39.2 MCV 95 MCH 32.6 MCHC 34.2 RDW 12.5 Plt Count 188 MPV 12.5 H Immature Gran % 0.3 Neutrophils % 75.8 Lymphocytes % 17.5 Monocytes % 6.2 Eosinophils % 0.1 Basophils % 0.1 Nucleated RBC % 0.0 Absolute Neutrophils 10.57 H Absolute Lymphocytes 2.44 Absolute Monocytes 0.86 H Absolute Eosinophils 0.01 Absolute Basophils 0.01 RBC Morphology Normal Sodium 141 Potassium 3.6 Chloride 104 Carbon Dioxide 27.9 Anion Gap 9.1 BUN 17 Creatinine 0.8 Est GFR (CKD-EPI 2020) 75.37 Glucose 130 H Calcium 8.7 Magnesium Troponin I Add-On Test Request DONE 05/02/22 05/03/22 05/03/22 08:45 06:08 06:08 WBC 9.74 RBC 4.02 Hgb 13.3 Hct 38.2 MCV 95 MCH 33.1 H MCHC 34.8 RDW 12.5 Plt Count 202 MPV 12.2 H Immature Gran % 0.5 Neutrophils % 66.5 Lymphocytes % 23.7 Monocytes % 9.2 Eosinophils % 0.0 Basophils % 0.1 Nucleated RBC % 0.0 Absolute Neutrophils 6.47 Absolute Lymphocytes 2.31 Absolute Monocytes 0.90 H Absolute Eosinophils 0.00 Absolute Basophils 0.01 RBC Morphology Sodium 139 Potassium 4.4 Chloride 104 Carbon Dioxide 30.0 Anion Gap 5.0 BUN 20 H Creatinine 0.8 Est GFR (CKD-EPI 2020) 75.37 Glucose 97 Calcium 8.5 Magnesium 1.9 Troponin I < 50 Add-On Test Request Reviewed Pertinent PMH: Yes
[2022-05-03] MEDS: Dexamethasone 10 MG/ML VIAL 6 MG IVP (08:26)
[2022-05-03] MEDS: Dronabinol 2.5 MG CAP PO ×2 (08:26→17:02)
[2022-05-03] MEDS: Potassium Chloride 20 MEQ TABCR PO ×2 (08:26→17:02)
[2022-05-03] MEDS: Normal Saline Flush 10 ML SYR IVP (08:27)
[2022-05-03 08:34] VITALS: BP 135/79; PULSE 86; RESP 22; TEMP 36.9; O2SAT 97
--- NOTE | 2022-05-03 09:00 | PGE_ITS ---
Date of Service Date of service: 05/03/22 Time of Service: 09:00 Assessment and Plan Assessment and plan (1) COVID: Status: Acute Assessment and plan: Treat symptomsl; remdesivir day 4 Improving, no worsening symptoms (2) Hypoxia: Status: Resolved Assessment and plan: Lungs are currently clear; no increased work of breathing. no oxygen requirements, inhalers - SPO2 > 96% NC 2 LPM - asked nursing to ween (3) Anorexia: Status: Acute Assessment and plan: Nursing reports Arlen is not eating, this is a chronic problem, protein supplements encouraged - nutrition consult Added Donabinol in attempt to promote appetite and improve intake, taking protein beverages willingly. (4) Hyperlipidemia: Status: Acute Assessment and plan: Continue home med (5) Hypertension: Status: Chronic Assessment and plan: BP stable - continue home med (6) DVT prophylaxis: Status: Deleted Assessment and plan: therapeutic enoxaparin 60 mg BID (7) Discharge planning issues: Status: Deleted Assessment and plan: Plan to discharge home 05/04/22 if continues to improve and off oxygen. with no services, Subjective Subjective Patient reports: no new complaints, feels better, tolerating a regular diet, voiding w/o difficulty, bowel movement and afebrile; denies diarrhea or vomiting Interval history since last seen: Encouraged to east, is taking protein beverages between meals. No oxygen requirement. Exam Const General: cooperative, frail appearing and ill appearing acutely Nutritional Appearance: thin Orientation: alert and awake [facility] Head: normal to inspection, normocephalic and atraumatic Ears: hearing grossly normal bilaterally and TM's normal bilaterally General nose exam: external nose normal Face and sinus: no erythema Mouth: no muffled voice Neck Neck: normal visual inspection, full ROM, no lymphadenopathy, no meningeal signs, trachea midline and supple Resp Effort & Inspection: normal respiratory effort and able to speak in complete sentences Auscultation: diminished lung sounds bilaterally throughout Cardio Rate: regular rate Rhythm: regular rhythm Heart Sounds: S1 normal, S2 normal, normal S1 and S2, no click, no gallops, no murmurs and no rubs Back/Spine/Pelvis Thoracic/Lumbar Spine: kyphosis Other: Swelling over left back from just lateral (right) of the spine; going back to left scapula and down toward left buttock - it is spongy, grayish in color and has what might be black heads scattered about the lesion -she reports not knowing it was there and has no idea how long it has been there. Skin General skin exam: dry skin (warm) Neuro General: patient alert, patient awake, patient oriented x3, gait normal and moves all extremities Cognition: normal cognition Speech: speech normal Objective Last Vital Signs Temp 36.9 C 05/03/22 08:34 Pulse 86 05/03/22 08:34 Resp 22 05/03/22 08:34 BP 135/79 05/03/22 08:34 Pulse Ox 97 05/03/22 08:34 Laboratory Results - last 24 hr 05/02/22 05/02/22 05/02/22 08:45 08:45 08:45 WBC 13.95 H RBC 4.11 Hgb 13.4 Hct 39.2 MCV 95 MCH 32.6 MCHC 34.2 RDW 12.5 Plt Count 188 MPV 12.5 H Immature Gran % 0.3 Neutrophils % 75.8 Lymphocytes % 17.5 Monocytes % 6.2 Eosinophils % 0.1 Basophils % 0.1 Nucleated RBC % 0.0 Absolute Neutrophils 10.57 H Absolute Lymphocytes 2.44 Absolute Monocytes 0.86 H Absolute Eosinophils 0.01 Absolute Basophils 0.01 RBC Morphology Normal Sodium 141 Potassium 3.6 Chloride 104 Carbon Dioxide 27.9 Anion Gap 9.1 BUN 17 Creatinine 0.8 Est GFR (CKD-EPI 2020) 75.37 Glucose 130 H Calcium 8.7 Magnesium Troponin I Add-On Test Request DONE 05/02/22 05/03/22 05/03/22 08:45 06:08 06:08 WBC 9.74 RBC 4.02 Hgb 13.3 Hct 38.2 MCV 95 MCH 33.1 H MCHC 34.8 RDW 12.5 Plt Count 202 MPV 12.2 H Immature Gran % 0.5 Neutrophils % 66.5 Lymphocytes % 23.7 Monocytes % 9.2 Eosinophils % 0.0 Basophils % 0.1 Nucleated RBC % 0.0 Absolute Neutrophils 6.47 Absolute Lymphocytes 2.31 Absolute Monocytes 0.90 H Absolute Eosinophils 0.00 Absolute Basophils 0.01 RBC Morphology Sodium 139 Potassium 4.4 Chloride 104 Carbon Dioxide 30.0 Anion Gap 5.0 BUN 20 H Creatinine 0.8 Est GFR (CKD-EPI 2020) 75.37 Glucose 97 Calcium 8.5 Magnesium 1.9 Troponin I < 50 Add-On Test Request
[2022-05-03 09:38] LABS: HIV-1/2 Ag & Ab Screen Negative (Negative)
[2022-05-03 11:07] VITALS: BP 126/78; PULSE 118; RESP 28; TEMP 36.6; O2SAT 96
[2022-05-03] MEDS: REMDESIVIR 100 MG in Normal Saline 250 ML 125 MG IVPB (14:35)
[2022-05-03 14:45] VITALS: BP 120/71; PULSE 100; RESP 23; TEMP 36.2; O2SAT 96
[2022-05-03] MEDS: Polyethylene Glycol 3350 17 GM PACKET PO (17:02)
[2022-05-03 19:05] VITALS: BP 129/83; PULSE 95; RESP 20; TEMP 36.7; O2SAT 95
[2022-05-03 21:45] VITALS: BP 134/75; PULSE 97; RESP 14; TEMP 36.3; O2SAT 95
[2022-05-03] MEDS: Melatonin 3 MG TAB PO (21:45)
[2022-05-04] MEDS: Enoxaparin 60 MG/0.6 ML SYR 50 MG SC (05:11)
[2022-05-04 07:11] LABS: Abs Immature Grans 0.08 10^3/uL (0.0-0.06); Absolute Eosinophil Count 0.01 10^3/uL (0.0-0.7); Eosinophils % 0.1; MCV 95 fL (80-95); RDW 12.2 % (11.7-14.6)
[2022-05-04] MEDS: Normal Saline Flush 10 ML SYR IVP (07:18)
[2022-05-04] MEDS: Dronabinol 2.5 MG CAP PO (07:18)
[2022-05-04] MEDS: Polyethylene Glycol 3350 17 GM PACKET PO (07:18)
[2022-05-04] MEDS: Dexamethasone 10 MG/ML VIAL 6 MG IVP (07:19)
[2022-05-04] MEDS: Potassium Chloride 20 MEQ TABCR PO (07:19)
[2022-05-04 07:24] LABS: Anion Gap 4.6 mmol/L (3-11); BUN 22 mg/dL (7-18); CO2 31.4 mmol/L (21.0-32.0); CREATININE 0.8 mg/dL (0.55-1.02); Chloride 102 mmol/L (98-107); Estimated GFR 75.37 (mL/min/1.73m2); Glucose 107 mg/dL (74-106); Magnesium 2.2 mg/dL (1.8-2.4); Potassium 4.4 mmol/L (3.5-5.1); Sodium 138 mmol/L (136-145)
[2022-05-04 07:25] LABS: Absolute Basophil Count 0.01 10^3/uL (0.0-0.2); Absolute Lymphocyte Count 2.64 10^3/uL (1.2-3.4); Absolute Monocyte Count 1.09 10^3/uL (0.1-0.8); Absolute Neutrophil Count 6.87 10^3/uL (1.2-6.7); Basophils % 0.1; HCT 40.3 % (36.0-46.0); HGB 13.7 g/dL (11.2-15.7); Immature Grans % 0.7; Lymphocytes % 24.7; MCH 32.3 pg (27.0-33.0); MPV 12.6 fL (8.0-11.0); Monocytes % 10.2; Neutrophils % 64.2; Platelet Count 228 10^3/uL (130-400); RBC 4.24 10^6/uL (3.93-5.22); RDW-SD 42.8 fL
[2022-05-04 07:30] VITALS: BP 138/84; PULSE 87; RESP 16; TEMP 36.1; O2SAT 96
[2022-05-04 09:14] LABS: Hepatitis C Ab w Rflx HCV PCR Negative (Negative)
[2022-05-04 10:20] LABS: HBs Antibody, Quant <3.1 mIU/mL (See Note); Hep B Surface Ab Negative (See Note); Hepatitis B Core Antibody Negative (Negative); Hepatitis B Surface Antigen Negative (Negative)
--- NOTE | 2022-05-04 10:59 | DSE_ITS ---
Date of service: 05/04/22 Time of Service: 10:59 DS: Diagnosis Discharge Diagnosis (1) COVID: Status: Acute (2) Hypoxia: Status: Resolved (3) Anorexia: Status: Acute (4) Hyperlipidemia: Status: Acute (5) Hypertension: Status: Chronic Discharge Plan Disposition Patient Disposition: HOME Condition: Poor Discharge Details Reason For Visit: COVID Pneumonia Admit Date/Time: 04/30/22 14:01 Admit Provider: Jose M Tony Attending Provider: Jose M Tony Primary Care Provider: David Rae [facility] Hospital Course: This is a 76-year-old female patient that presented to the [facility] emergency department with the chief complaint of worsening COVID symptoms. Approximately seven days ago, she started having COVID symptoms, cough, chills, fever, malaise, and weakness. She was initially doing okay, but then on Wednesday, she worsened. She was seen at [facility] and evaluated in the emergency department. At that time, she requested to go home and was prescribed Tessalon Perles. Over the last 48 hours, she stated her symptoms were worse. EMS stated she was hypoxic upon their arrival and was placed on nasal cannula O2. The patient was no longer hypoxic on arrival to the ED but had a wet cough with diffuse rhonchi, frail and acutely ill appearance, and bradycardic.? She was given Decadron, albuterol/ipratropium, and a fluid bolus.? Please see the physician's interpretation for a complete interpretation of the EKG. There is sinus bradycardia and no acute STEMI, but there are noted T wave inversion in V1 through 3. No previous EKGs were available?reviewed labs showed an overall unremarkable CBC, D-dimer of 6344. CT imaging of the chest was negative for PE. She has negative lactate and CMP overall unremarkable, negative initial troponin. Procalcitonin less than 0.1.? CRP was slightly elevated at 0.4. The patient is COVID-positive and negative for influenza or RSV. A review of chest x-ray and radiologist interpretation showed no acute findings. She did have a fever and was given Tylenol. She received remdesivir and improved.? She has a long history of anorexia and does not take good care of her hygiene or living co nditions.? She was started on dronabinol and encouraged to supplement with protein drinks. She has a son that is in the area and is able to help care for her.? She has no oxygen requirement and passed an exercise oximetry easily. She is able to ambulate independently in the room. ?She is discharged to home with no services. Home Meds and New Rx's Prescriptions: New melatonin 3 mg Tablet 3 mg PO HS Qty: 0 0RF dronabinol 2.5 mg Capsule 2.5 mg PO BID AC Qty: 60 0RF Continued multivitamin Tablet 1 tab PO DAILY metoprolol tartrate 100 mg Tablet 50 mg PO BID calcium carbonate 600 mg calcium (1,500 mg) Tablet 600 mg PO TID methimazole 5 mg Tablet 2.5 mg PO DAILY lisinopril 5 mg Tablet 5 mg PO DAILY benzonatate 100 mg Capsule 200 mg PO TID PRN Discharge Instructions Instructions: Dronabinol (By mouth), Anorexia in Older Adults (GEN), COVID-19 (Coronavirus Disease 2019) (DC) Additional Instructions: Stay home and continue to isolate for two more days; continue to wear a medical face mask for 5 days after that. Hydrate, rest, tylenol or motrin for pain or fever. Return to emergency department with any difficulty breathing or chest pain. Stand Alone Forms: Nursing Discharge Form Referrals: David Rae [Primary Care Provider] - (Call Wednesday for an appointment in 1-2 weeks. ) Activity:: Activity as Tolerated Equipment/Supplies:: No Equipment Needed Diet:: As Tolerated Discharge Orders Discharge Orders: Discharge Order (Routine); Ordered 05/04/22 Ordered By: Arlen Rausch Discharge Data Discharge Date/Time-TO BE ENTERED AT DEPARTURE: 05/04/22 13:12 DS: Summary Time Spent with Patient providing and/or coordinating discharge services: Less than 30 minutes Status at Discharge Functional status at discharge: uses cane/walker Overall status at discharge: patient is progressing back to baseline Mental Status: mental status grossly normal Speech and Movement: speech and movement normal Mood: congruent mood Affect: normal affect Exam Const General: cooperative, frail appearing and ill appearing acutely Nutritional Appearance: thin Orientation: alert and awake [facility] Head: normal to inspection, normocephalic and atraumatic Ears: hearing grossly normal bilaterally and TM's normal bilaterally General nose exam: external nose normal Face and sinus: no erythema Mouth: no muffled voice Neck Neck: normal visual inspection, full ROM, no lymphadenopathy, no meningeal signs, trachea midline and supple Resp Effort & Inspection: normal respiratory effort and able to speak in complete sentences Auscultation: diminished lung sounds bilaterally throughout Cardio Rate: regular rate Rhythm: regular rhythm Heart Sounds: S1 normal, S2 normal, normal S1 and S2, no click, no gallops, no murmurs and no rubs Back/Spine/Pelvis Thoracic/Lumbar Spine: kyphosis Other: Swelling over left back from just lateral (right) of the spine; going back to left scapula and down toward left buttock - it is spongy, grayish in color and has what might be black heads scattered about the lesion -she reports not knowing it was there and has no idea how long it has been there. Skin General skin exam: dry skin (warm) Neuro General: patient alert, patient awake, patient oriented x3, gait normal and moves all extremities Cognition: normal cognition Speech: speech normal Psych Mental Status: mental status grossly normal Speech and Movement: speech and movement normal Mood: congruent mood Affect: normal affect DS: Data Vitals/I&O Vitals and I&O: Vital Signs Temperature 36.1 C L 05/04/22 07:30 Temperature Source Tympanic 05/04/22 07:30 Pulse 87 05/04/22 07:30 Pulse Rhythm Regular 05/04/22 09:25 Pulse 49 L 04/30/22 14:00 Respiratory Rate 16 05/04/22 07:30 Respiratory Effort 05/04/22 09:25 Respiratory Depth Normal 05/04/22 09:25 Respiratory Pattern Normal 05/04/22 09:25 Blood Pressure 138/84 05/04/22 07:30 Blood Pressure Mean 73 04/30/22 12:46 Blood Pressure Position Supine 04/30/22 09:06 Pulse Oximetry 96 05/04/22 07:30 Oxygen Delivery Method Room Air 05/04/22 07:30 Oxygen Flow Rate 0 05/04/22 07:30 Pain Level 0 05/04/22 07:30 Comment 05/03/22 11:07 Intake & Output 05/03/22 05/03/22 05/04/22 11:59 23:59 11:59 Intake Total 240 / 240 Output Total 800 / 1850 1050 / 1850 500 / 500 Balance -800 / -1610 -810 / -1610 -500 / -500 Intake: Oral 240 / 240 Output: Urine 800 / 1850 1050 / 1850 500 / 500 Other: Urine Color Yellow Yellow Yellow Urine Appearance Clear Clear Clear Urine Odor None None Comment Ambulated to the toilet. She stood at the sink and washed up before ambulating back to bed. Stool Size Small Small Small Stool Characteristics Formed Soft Formed Hard Brown Voiding Methods Toilet Bedside Commode Data Completed and Pending Labs on day of discharge: Labs from last 24 hours 05/04/22 05/04/22 06:50 06:50 WBC 10.70 RBC 4.24 Hgb 13.7 Hct 40.3 MCV 95 MCH 32.3 MCHC 34.0 RDW 12.2 Plt Count 228 MPV 12.6 H Immature Gran % 0.7 Neutrophils % 64.2 Lymphocytes % 24.7 Monocytes % 10.2 Eosinophils % 0.1 Basophils % 0.1 Nucleated RBC % 0.0 Absolute Neutrophils 6.87 H Absolute Lymphocytes 2.64 Absolute Monocytes 1.09 H Absolute Eosinophils 0.01 Absolute Basophils 0.01 Sodium 138 Potassium 4.4 Chloride 102 Carbon Dioxide 31.4 Anion Gap 4.6 BUN 22 H Creatinine 0.8 Est GFR (CKD-EPI 2020) 75.37 Glucose 107 H Calcium 9.0 Magnesium 2.2 Preliminary micro results at discharge 04/30/22 09:41 Blood Culture - Preliminary Blood NO GROWTH 72 HOURS 04/30/22 10:18 Blood Culture - Preliminary Blood NO GROWTH 72 HOURS PFSH All Active Problems (Updated 05/05/22 @ 00:09 by YANA SIM) Anorexia (Acute) COVID (Acute) Hyperlipidemia (Acute) Hypertension (Chronic) Social History Smoking/Tobacco Use Status: Current every day Tobacco Type: cigarettes Years smoked: 20 Smoking risk assessment performed?: Yes Alcohol Intake: former Substance use type: does not use Do you feel safe at home: Yes Do you feel safe in your relationship?: Yes
--- NOTE | 2022-05-04 11:30 | PT.INIE ---
Date of service: 05/04/22 Time of Service: 11:35 PT Notes Visit Reasons: COVID Pneumonia Inpatient Physical Therapy Evaluation Date: Referring Doctor: PT Orders: PT CONSULT: Precautions: Patient Profile/Admitting Diagnosis: PMHX: Social History/Home Situation: Equipment Owned/DME: Subjective: Objective: Mental Status: Pain: ROM: Right Upper Extremity: Left Upper Extremity: Right Lower Extremity: Left Lower Extremity: Strength: Right Upper Extremity: Left Upper Extremity: Right Lower Extremity: Left Lower Extremity: Bed Mobility/Transfers: Supine-sit: Sit-stand: Stand-sit: Bed-commode: Commode-chair: Gait: Assistance-- Distance-- Device-- Balance: Static Sitting: Dynamic Sitting: Static Standing: Dynamic Standing: Special Tests: Mobility Limitations Standardized Measure [facility]-PAC 6 clicks Basic Mobility Inpatient Short Form: Raw Score: Standardized Score: CMS Score: CMS Modifier: Informed Consent/Education: Patient instructed in purpose of PT consult and plan of care. ASSESSMENT: Patient is a Admitted with Patient presents with the following impairment level findings: Pt will benefit from skilled therapy intervention in order to remedy their functional limitations and restore patient to a more appropriate and stable functional level. Impairments are contributing to the following functional limitations: AMPAC score CMS Score: Patient is assessed as a based on the following: History: see above Examination: see above Presentation: Decision Making: Goals: Goals X1 week 1. Supine-Sit 2. Sit-Supine 3. Sit-Stand 4. Stand-Sit 5. Bed-Chair 6. Gait 7: Stairs 8: Independent in Home program Plan of Care/Treatment Plan: 1-2x/day, 7 days/week x 1 week. Plan of care has been reviewed with the BUSINESS DEVELOPMENT providing the service under Physical Therapy direction. Initiate Physical Therapy intervention for strengthening, bed mobility, transfers, gait, stairs, balance training, use of assistive device. DISCHARGE RECOMMENDATIONS: ( ) Home with no services ( ) Home with services [specify] ( ) Home with outpatient PT ( ) SNF for continued rehabilitation ( ) [facility] ( ) SNF versus LTC based on ability to participate and progress TREATMENT CODE/TIME: [facility]
[2022-05-04 11:55] VITALS: PULSE 122; PULSE 81; PULSE 92; RESP 16; RESP 20; O2SAT 95; O2SAT 98
== END 2022-05-04 13:12 | disposition home or self-care (01) | DRG 178 ==
LOC: ER 14:48 → MS 14:50
PROVIDERS: Nurse Practitioner Family; Admitting Provider Internal Medicine; Emergency Provider Nurse Practitioner Family; PCP Family Medicine; Visit Provider Internal Medicine
DX: U07.1 COVID-19 (principal); Z68.1 Body mass index [BMI] 19.9 or less, adult; R09.02 Hypoxemia; I10 Essential (primary) hypertension; E78.5 Hyperlipidemia, unspecified; F17.210 Nicotine dependence, cigarettes, uncomplicated; R00.1 Bradycardia, unspecified; R63.0 Anorexia; R60.0 Localized edema
CPT/HCPCS: 36415; 71275; 80048; 80053; 80076; 82550; 84145; 86704; 86706; 86803; 86850; 86900; 86901; 87040; 87340; 87389; 87637; 93005; 94618; 94640; 96361; 96374; 99284; 99285; 71045; 82728; 83605; 83615; 83735; 84484; 85025; 85379; 85610; 85730; 86140; 93010; 99222; 99232; 99238; J0248; J1100; J1650; J3490; J7620

== ENCOUNTER 2023-05-26 09:40 | Emergency (ER) | payer MEDICARE, SELFPAY ==
[2023-05-26] VITALS (21 sets, daily range): BP systolic 133–191; BP diastolic 55–115; PULSE 52–71; RESP 14–25; TEMP 36.4–36.6; O2SAT 93–97
--- NOTE | 2023-05-26 09:30 | RT.EKG_ITS ---
APPROVED REPORT Exam: Resting ECG Reason for Exam: SOB Patient Location: E HR:58 bpm ECG Measurements Heart Rate 58 AXIS MD 140 P 47 QRSd 88 QRS 24 QT 403 T 51 QTc 394 Conclusion Sinus bradycardia...rate< [address] segment or T wave abnormalities to suggest occlusive MA
--- NOTE | 2023-05-26 10:00 | DI.RAD_ITS ---
Exam(s) XR CHEST 2V PA LATERAL EXAM: XR CHEST 2V PA LATERAL CLINICAL HISTORY: short of breath TECHNIQUE: 2D digital imaging was performed of the chest. Two images were obtained. PA and lateral views were obtained. COMPARISON: CR XR PORTABLE CHEST AP from 04/30/[address] CHEST PE CTA from 04/30/2022 FINDINGS: MEDIASTINUM: Normal. HEART: Normal. PULMONARY VASCULATURE: Normal. LUNGS: Clear. PLEURAL SPACE: No pleural effusion or pneumothorax. BONE:Within normal limits for the patient's age. OTHER FINDINGS:Normal. IMPRESSION: No acute pulmonary findings. DATA REPOSITORY: RADIATION DOSE DELIVERED:
--- NOTE | 2023-05-26 10:04 | W.ED.GENAD ---
Discharge Plan Disposition Patient Disposition: Home Condition: Good Discharge Details Clinical Impression: Upper respiratory infection Primary Care Provider: David Rae ED Provider: Gisselle Mccann Home Meds and New Rx's Prescriptions: New Combivent Respimat 20-100 mcg/actuation mist 1 puff inhalation Q6H PRN (Reason: shortness of breath or wheezing) Qty: 4 0RF No Action multivitamin Tablet 1 tab PO DAILY metoprolol tartrate 100 mg Tablet 50 mg PO BID calcium carbonate 600 mg calcium (1,500 mg) Tablet 600 mg PO TID methimazole 5 mg Tablet 2.5 mg PO DAILY lisinopril 5 mg Tablet 5 mg PO DAILY benzonatate 100 mg Capsule 200 mg PO TID PRN melatonin 3 mg Tablet 3 mg PO HS Qty: 0 0RF dronabinol 2.5 mg Capsule 2.5 mg PO BID AC Qty: 60 0RF Discharge Instructions Instructions: Upper Respiratory Infection (ED) Additional Instructions: You can use the inhaler we have prescribed up to every 6 hours as needed for shortness of breath. Call your primary care doctor today to schedule an appointment within the next 48 hours to followup on your visit today. Return to the emergency department for new or worsening symptoms including if your breathing gets worse again, you have chest pain, feel lik eyou are going to pass out, or if you have any other concerns. Referrals: David Rae [Primary Care Provider] - Medical Decision Making 78yo F with HTN, HLD, presenting for shortness of breath. History from patient and [facility] record review; started with cough and malaise 2-3 days ago, this morning with difficulty breathing and mild dull substernal chest pressure. Hypertensive on arrival, tachypnic on exam with increased work of breathing and rhonchi VItal signs otherwise reassuring. No tachycardia, hypoxia, or pleuritic pain to suggest pulmonary embolism; exam suggestive of respiratory infection vs CHF (not overtly volume overloaded, favor infection); would not further workup for pulmonary embolism with labs/imaging. Given methylprednisone, duoneb, tylenol as well as home BP meds. EKG sinus bradycardia, appropriate intervals, no ST segment or T wave abnormalities to suggest occlusive UT, no concerning changes from prior 05/01/22. CXR independently reviewed, no focal pneumonia or pneumothorax on my view, agree with radiology read below. Labs reviewed as below, CBC & CMP reassuring with no actionable abnormalities, BNP marginally elevated at 401 (not likely significant), troponin negative x 2. On reassessment she reports her breathing feels much better, no further chest tightness. ACS remains possible however symptom resolution with treatment is reassuring as is the rest of her workup here. Requests discharge home which is reasonable with her reassuring workup here. Will give dose of decadron here for longer effect and prescribe combivent for home. Discharged home; discharge instructions including return precautions were reviewed with patient and son at [facility] who verbalized understanding. All questions were answered and they are in full agreement with the plan. Imaging Data Radiologic Study: Imaging: X-Ray Radiologist's impression: IMPRESSION: No acute pulmonary findings. Lab Data Lab results reviewed: Yes I reviewed the patient's lab results. Labs: Laboratory Tests Range/Units 05/26/23 05/26/23 05/26/23 10:03 10:21 10:21 WBC (4.4-10.8) 10^3/uL 6.23 RBC (3.93-5.22) 10^6/uL 4.20 Hgb (11.2-15.7) g/dL 13.6 Hct (36.0-46.0) % 40.6 MCV (80-95) fL 97 H MCH (27.0-33.0) pg 32.4 MCHC (32.0-36.0) % 33.5 RDW (11.7-14.6) % 12.1 Plt Count (130-400) 10^3/uL 215 MPV (8.0-11.0) fL 11.2 H Immature Gran % 0.3 Neutrophils % 60.0 Lymphocytes % 26.8 Monocytes % 11.7 Eosinophils % 0.6 Basophils % 0.6 Nucleated RBC % (0.0-0.3) % 0.0 Absolute Neutrophils (1.2-6.7) 10^3/uL 3.73 Absolute Lymphocytes (1.2-3.4) 10^3/uL 1.67 Absolute Monocytes (0.1-0.8) 10^3/uL 0.73 Absolute Eosinophils (0.0-0.7) 10^3/uL 0.04 Absolute Basophils (0.0-0.2) 10^3/uL 0.04 Sodium (136-145) mmol/L 139 Potassium (3.5-5.1) mmol/L 4.1 Chloride (98-107) mmol/L 102 Carbon Dioxide (21.0-32.0) mmol/L 28.6 Anion Gap (3-11) mmol/L 8.4 BUN (7-18) mg/dL 12 Creatinine (0.55-1.02) mg/dL 0.8 Est GFR (CKD-EPI 2020) (mL/min/1.73m2) 74.44 Glucose (74-106) mg/dL 94 Calcium (8.5-10.1) mg/dL 9.5 Magnesium (1.8-2.4) mg/dL 2.1 Total Bilirubin (0.2-1.0) mg/dL 0.5 AST (15-37) U/L 19 ALT (14-59) U/L 22 Alkaline Phosphatase (46-116) U/L 71 Troponin I (<or=60) ng/L < 50 NT-Pro-B Natriuret Pep (<300) pg/mL 401 H Total Protein (6.4-8.2) g/dL 7.1 Albumin (3.4-5.0) g/dL 3.1 L COVID-19 Source Nasopharynx SARS-CoV-2 (PCR) (Negative) Negative Influenza Type A (PCR) (Negative) Negative Influenza Type B (PCR) (Negative) Negative RSV (PCR) (Negative) Negative Range/Units 05/26/23 13:07 WBC (4.4-10.8) 10^3/uL RBC (3.93-5.22) 10^6/uL Hgb (11.2-15.7) g/dL Hct (36.0-46.0) % MCV (80-95) fL MCH (27.0-33.0) pg MCHC (32.0-36.0) % RDW (11.7-14.6) % Plt Count (130-400) 10^3/uL MPV (8.0-11.0) fL Immature Gran % Neutrophils % Lymphocytes % Monocytes % Eosinophils % Basophils % Nucleated RBC % (0.0-0.3) % Absolute Neutrophils (1.2-6.7) 10^3/uL Absolute Lymphocytes (1.2-3.4) 10^3/uL Absolute Monocytes (0.1-0.8) 10^3/uL Absolute Eosinophils (0.0-0.7) 10^3/uL Absolute Basophils (0.0-0.2) 10^3/uL Sodium (136-145) mmol/L Potassium (3.5-5.1) mmol/L Chloride (98-107) mmol/L Carbon Dioxide (21.0-32.0) mmol/L Anion Gap (3-11) mmol/L BUN (7-18) mg/dL Creatinine (0.55-1.02) mg/dL Est GFR (CKD-EPI 2020) (mL/min/1.73m2) Glucose (74-106) mg/dL Calcium (8.5-10.1) mg/dL Magnesium (1.8-2.4) mg/dL Total Bilirubin (0.2-1.0) mg/dL AST (15-37) U/L ALT (14-59) U/L Alkaline Phosphatase (46-116) U/L Troponin I (<or=60) ng/L < 50 NT-Pro-B Natriuret Pep (<300) pg/mL Total Protein (6.4-8.2) g/dL Albumin (3.4-5.0) g/dL COVID-19 Source SARS-CoV-2 (PCR) (Negative) Influenza Type A (PCR) (Negative) Influenza Type B (PCR) (Negative) RSV (PCR) (Negative) HPI General Date/Time Provider Initiated Documentation: 05/26/23 09:41. Limitations to Documentation: no limitations. Information obtained by: patient and old records reviewed. HPI Narrative: 78yo F presenting for shortness of breath. History from patient and [facility] record review. Started with cough and malaise 2-3 days ago. Cough is productive of clear sputum. Difficulty breathing this morning with some substernal chest tightness/pressure. No chest pain including no pleuritic pain. No LE edema. No history of COPD or asthma, does report angina. She is otherwise in her usual state of health with no fevers, chills, rash, nause, vomiting, abdominal pain, headache, numbness, tingling, weakness, lightheadedness, syncope, or other concerns. Related Data Home Medications Medication Instructions Recorded Confirmed benzonatate 100 mg capsule 200 mg PO TID PRN 04/30/22 04/30/22 calcium carbonate 600 mg calcium 600 mg PO TID 04/30/22 04/30/22 (1,500 mg) tablet lisinopril 5 mg tablet 5 mg PO DAILY 04/30/22 04/30/22 methimazole 5 mg tablet 2.5 mg PO DAILY 04/30/22 04/30/22 metoprolol tartrate 100 mg tablet 50 mg PO BID 04/30/22 04/30/22 multivitamin 1 tab PO DAILY 04/30/22 04/30/22 dronabinol 2.5 mg capsule 2.5 mg PO BID AC #60 caps 05/04/22 melatonin 3 mg tablet 3 mg PO HS #0 tabs 05/04/22 ipratropium 20 mcg-albuterol 100 1 puff inhalation Q6H PRN 05/26/23 mcg/actuation mist for inhalation shortness of breath or wheezing #4 (Combivent Respimat) grams Previous Rx's Medication Instructions Recorded dronabinol 2.5 mg capsule 2.5 mg PO BID AC #60 caps 05/04/22 melatonin 3 mg tablet 3 mg PO HS #0 tabs 05/04/22 ipratropium 20 mcg-albuterol 100 1 puff inhalation Q6H PRN 05/26/23 mcg/actuation mist for inhalation shortness of breath or wheezing #4 (Combivent Respimat) grams Allergies Allergy/AdvReac Type Severity Reaction Status Date / Time bee venom protein (honey bee) Allergy Anaphylaxis Unverified 04/30/22 09:26 Penicillins Allergy Unverified 04/30/22 09:26 General Stated Complaint: RespSymp CODY: 3 Review of Systems Narrative: see HPI PFSH All Active Problems (Updated 05/26/23 @ 13:45 by Gisselle Mccann MD) Upper respiratory infection (Acute) Anorexia (Acute) COVID (Acute) Hyperlipidemia (Acute) Hypertension (Chronic) Social History Smoking/Tobacco Use Status: Current every day Tobacco Type: cigarettes Years smoked: 20 Smoking risk assessment performed?: Yes Alcohol Intake: former Substance use type: does not use Do you feel safe at home: Yes Do you feel safe in your relationship?: Yes Exam Narrative Exam Narrative: General: Alert, chronically ill appearing Head: Normocephalic, atraumatic Neck: Trachea midline, Neck supple. ENT: MMM. Cardiac: RRR, no murmurs appreciated Resp: Tachypneic, moderate retractions. Scattered rhonchi bilaterally. Abd: Soft, non-distended, nontender : No suprapubic tenderness. No CVA tenderness. Back: Marked kyphosis, echymosis overlying kyphotic segment Extremities: No deformities. No peripheral edema. Neurologic: GCS 15. Moves all extremities freely against gravity Course Vital Signs Vital signs: Vital Signs Temperature 36.4 C L 05/26/23 09:43 Pulse 66 05/26/23 09:43 Respiratory Rate 22 05/26/23 09:43 Blood Pressure 191/103 H 05/26/23 09:43 Pulse Oximetry 95 05/26/23 09:43 Temperature 36.4 C L 05/26/23 09:43 Temperature Source Oral 05/26/23 09:43 Pulse 66 05/26/23 09:43 Respiratory Rate 22 05/26/23 09:43 Blood Pressure 191/103 H 05/26/23 09:43 Pulse Oximetry 95 05/26/23 09:43 Oxygen Delivery Method Room Air 05/26/23 09:43 Oxygen Flow Rate 0 05/26/23 09:43 Pain Level 0 05/26/23 09:43
[2023-05-26] MEDS: Acetaminophen 325 MG TAB 650 MG PO (10:25)
[2023-05-26] MEDS: Albuterol/Ipratropium 3 ML UPD VIAL UPD (10:26)
[2023-05-26] MEDS: methylPREDNISolone SUCC 125 MG VIAL IVP (10:26)
[2023-05-26 10:34] LABS: Abs Immature Grans 0.02 10^3/uL (0.0-0.06); Absolute Basophil Count 0.04 10^3/uL (0.0-0.2); Absolute Eosinophil Count 0.04 10^3/uL (0.0-0.7); Absolute Lymphocyte Count 1.67 10^3/uL (1.2-3.4); Absolute Monocyte Count 0.73 10^3/uL (0.1-0.8); Absolute Neutrophil Count 3.73 10^3/uL (1.2-6.7); Basophils % 0.6; Eosinophils % 0.6; HCT 40.6 % (36.0-46.0); HGB 13.6 g/dL (11.2-15.7); Immature Grans % 0.3; Lymphocytes % 26.8; MCH 32.4 pg (27.0-33.0); MCHC 33.5 % (32.0-36.0); MCV 97 fL (80-95); MPV 11.2 fL (8.0-11.0); Monocytes % 11.7; Platelet Count 215 10^3/uL (130-400); RDW 12.1 % (11.7-14.6); RDW-SD 43.2 fL; WBC 6.23 10^3/uL (4.4-10.8)
[2023-05-26 10:56] LABS: ALT 22 U/L (14-59); AST 19 U/L (15-37); Albumin 3.1 g/dL (3.4-5.0); Alkaline Phosphatase 71 U/L (46-116); Anion Gap 8.4 mmol/L (3-11); BUN 12 mg/dL (7-18); Bilirubin, Total 0.5 mg/dL (0.2-1.0); CO2 28.6 mmol/L (21.0-32.0); CREATININE 0.8 mg/dL (0.55-1.02); Calcium 9.5 mg/dL (8.5-10.1); Chloride 102 mmol/L (98-107); Estimated GFR 74.44 (mL/min/1.73m2); Glucose 94 mg/dL (74-106); Magnesium 2.1 mg/dL (1.8-2.4); NT-proBNP 401 pg/mL (<300); Potassium 4.1 mmol/L (3.5-5.1); Sodium 139 mmol/L (136-145); Total Protein 7.1 g/dL (6.4-8.2); Troponin I < 50 ng/L (<or=60)
[2023-05-26 10:58] LABS: COVID-19 PCR Negative (Negative); Influenza A PCR Negative (Negative); Influenza B PCR Negative (Negative); RSV PCR Negative (Negative)
[2023-05-26 11:01] LABS: Source Nasopharynx
[2023-05-26] MEDS: Metoprolol 50 MG TAB PO (11:22)
[2023-05-26] MEDS: Lisinopril 5 MG TAB PO (11:24)
[2023-05-26 13:37] LABS: Troponin I < 50 ng/L (<or=60)
[2023-05-26] MEDS: Dexamethasone 4 MG TAB PO (13:57)
== END 2023-05-26 13:59 | disposition home or self-care (01) ==
PROVIDERS: Emergency Provider Student in an Organized Health Care Education/Training Program; PCP Family Medicine
DX: R06.02 Shortness of breath; J06.9 Acute upper respiratory infection, unspecified; I10 Essential (primary) hypertension; E78.5 Hyperlipidemia, unspecified; R00.1 Bradycardia, unspecified
CPT/HCPCS: 36415; 80053; 87637; 93005; 94640; 96374; 99285; 71046; 83735; 83880; 84484; 85025; 93010; J2930; J7620; J8540

== ENCOUNTER 2023-05-28 04:11 | Emergency (ER) | payer MEDICARE, SELFPAY ==
[2023-05-28] VITALS (16 sets, daily range): BP systolic 143–185; BP diastolic 52–124; PULSE 61–75; RESP 15–28; TEMP 36.7; O2SAT 93–100
--- NOTE | 2023-05-28 04:00 | RT.EKG_ITS ---
APPROVED REPORT Exam: Resting ECG Reason for Exam: short of breath, chest tightness Patient Location: E HR:62 bpm ECG Measurements Heart Rate 62 AXIS ND 136 P 37 QRSd 84 QRS 24 QT 401 T 58 QTc 407 Conclusion Sinus rhythm...normal P axis, V-rate 60- 99 Physician: no stemi, inverted t waves in V1 and V2, improved from prior EKG
--- NOTE | 2023-05-28 04:19 | ED.GENADUL_ITS ---
Discharge Plan Disposition Patient Disposition: Home Condition: Good Discharge Details Clinical Impression: COPD with exacerbation Primary Care Provider: Michelle Souza ED Provider: Edwar Burt Home Meds and New Rx's Prescriptions: New prednisone 50 mg tablet 50 mg PO DAILY Qty: 4 0RF No Action multivitamin Tablet 1 tab PO DAILY metoprolol tartrate 100 mg Tablet 50 mg PO BID calcium carbonate 600 mg calcium (1,500 mg) Tablet 600 mg PO TID methimazole 5 mg Tablet 2.5 mg PO DAILY lisinopril 5 mg Tablet 5 mg PO DAILY benzonatate 100 mg Capsule 200 mg PO TID PRN melatonin 3 mg Tablet 3 mg PO HS Qty: 0 0RF dronabinol 2.5 mg Capsule 2.5 mg PO BID AC Qty: 60 0RF Combivent Respimat 20-100 mcg/actuation mist 1 puff inhalation Q6H PRN (Reason: shortness of breath or wheezing) Qty: 4 0RF Discharge Instructions Instructions: COPD (Chronic Obstructive Pulmonary Disease) (ED) Additional Instructions: At this time your work-up is returned reassuring. Your symptoms continue to appear consistent with COPD. Please use the inhalers we have given you. Take the albuterol inhaler, 2 puffs every 6 hours. Take the Symbicort/Advair inhaler 2 puffs every 12 hours. You can use these until your prescriptions come through from the previous visits. If you notice any worsening of your symptoms, or any new symptoms such as vomiting, diarrhea, fever, chills, shortness of breath, chest pain, numbness, weakness, or fainting , please return immediately to the emergency department for reevaluation. Please follow up with your primary care provider as soon as possible for reassessment and reevaluation. As always, it was a pleasure participating in your medical care today. Referrals: Michelle Souza [Primary Care Provider] - Medical Decision Making This is an 78-year-old female with a past medical history of hypertension, high cholesterol, reactive airway disease, who presents today for shortness of breath. Patient was seen here in the emergency department 2 days ago, work-up was stable, she was prescribed inhalers for home. Unfortunately she was not able to fill these. She has continued to have shortness of breath since then and it worsened tonight. EMS was called secondary to the shortness of breath and chest tightness that she was feeling. On their arrival oxygen was 90% on room air. They gave her breathing treatment and supplemental oxygen which notably improved her symptoms. Side for the resolving symptoms at this time, she has no other complaints. She denies any vomiting or diarrhea. She denies any chest pain. No other complaints at this time. No other modifying factors. Exam demonstrates well-appearing female. Oxygenation 100% on 2 L. Exam demonstrates scattered wheezes and scattered rhonchi in the lungs. No signs of respiratory distress at this time. We will give a breathing treatment steroids, monitor closely and reassess. Symptoms appearing inconsistent with ACS. 5:45 AM Laboratory work-up has returned, minimal white count, VBG stable showing no acute acidosis. Electrolytes normal, troponin normal, EKG benign. COVID flu and RSV are negative. Patient feels much better after breathing treatment. Solu-Medrol was given. We will give a dose of prednisone for home, and a prescription for prednisone. We will give her an albuterol and Symbicort inhaler here for home use while she waits for her prescription to come through. Patient otherwise stable, no hypoxemia. No indication for admission. No evidence of silvestre pneumonia. Patient stable for discharge. Discussed red flags for which to return. I have extensively reviewed the treatment plan and discharge instructions with the patient and their family. I have addressed all patient concerns at this time. The patient and family was made aware of what symptoms to monitor for that would warrant a return to the emergency department. Discussed the plan with the patient and family, they demonstrate verbal understanding and agreement with our assessment and plan at this time. The documentation in this chart was dictated using Cross[employer] dictation software. Please excuse any dictation errors. FINDINGS: Lungs: Unremarkable. No consolidation. Pleural spaces: Unremarkable. No pleural effusion. No pneumothorax. Heart/Mediastinum: Unremarkable. No cardiomegaly. Bones/joints: Unremarkable. IMPRESSION: No acute findings. Thank you for allowing us to participate in the care of your patient. Dictated and Authenticated by: Osiel Rinaldi MD 05/28/2023 6:04 AM Eastern Time ([place] & [place]) HPI General Date/Time Provider Initiated Documentation: 05/28/23 04:14 . HPI Narrative: This is an 78-year-old female with a past medical history of hypertension, high cholesterol, reactive airway disease, who presents today for shortness of breath. Patient was seen here in the emergency department 2 days ago, work-up was stable, she was prescribed inhalers for home. Unfortunately she was not able to fill these. She has continued to have shortness of breath since then and it worsened tonight. EMS was called secondary to the shortness of breath and chest tightness that she was feeling. On their arrival oxygen was 90% on room air. They gave her breathing treatment and supplemental oxygen which notably improved her symptoms. Side for the resolving symptoms at this time, she has no other complaints. She denies any vomiting or diarrhea. She denies any chest pain. No other complaints at this time. No other modifying factors. Related Data Home Medications Medication Instructions Recorded Confirmed benzonatate 100 mg capsule 200 mg PO TID PRN 04/30/22 04/30/22 calcium carbonate 600 mg calcium 600 mg PO TID 04/30/22 04/30/22 (1,500 mg) tablet lisinopril 5 mg tablet 5 mg PO DAILY 04/30/22 04/30/22 methimazole 5 mg tablet 2.5 mg PO DAILY 04/30/22 04/30/22 metoprolol tartrate 100 mg tablet 50 mg PO BID 04/30/22 04/30/22 multivitamin 1 tab PO DAILY 04/30/22 04/30/22 dronabinol 2.5 mg capsule 2.5 mg PO BID AC #60 caps 05/04/22 melatonin 3 mg tablet 3 mg PO HS #0 tabs 05/04/22 ipratropium 20 mcg-albuterol 100 1 puff inhalation Q6H PRN 05/26/23 mcg/actuation mist for inhalation shortness of breath or wheezing #4 (Combivent Respimat) grams prednisone 50 mg tablet 50 mg PO DAILY #4 tabs 05/28/23 Previous Rx's Medication Instructions Recorded dronabinol 2.5 mg capsule 2.5 mg PO BID AC #60 caps 05/04/22 melatonin 3 mg tablet 3 mg PO HS #0 tabs 05/04/22 ipratropium 20 mcg-albuterol 100 1 puff inhalation Q6H PRN 05/26/23 mcg/actuation mist for inhalation shortness of breath or wheezing #4 (Combivent Respimat) grams prednisone 50 mg tablet 50 mg PO DAILY #4 tabs 05/28/23 Allergies Allergy/AdvReac Type Severity Reaction Status Date / Time aspirin Allergy Unverified 05/28/23 04:36 bee venom protein (honey bee) Allergy Anaphylaxis Unverified 05/28/23 04:36 Penicillins Allergy Unverified 05/28/23 04:36 General Stated Complaint: SOB CODY: 3 Review of Systems All systems reviewed & are unremarkable except as noted in HPI and below PFSH All Active Problems (Updated 05/28/23 @ 05:17 by Edwar Burt DO) Upper respiratory infection (Acute) COPD with exacerbation (Acute) Anorexia (Acute) COVID (Acute) Hyperlipidemia (Acute) Hypertension (Chronic) Social History Smoking/Tobacco Use Status: Current every day Tobacco Type: cigarettes Years smoked: 20 Smoking risk assessment performed?: Yes Alcohol Intake: former Substance use type: does not use Do you feel safe at home: Yes Do you feel safe in your relationship?: Yes Exam Narrative Exam Narrative: 1.Const: Well-nourished, Well-developed, appearing stated age 2.Eyes: PERRL, no conjunctival injection, and symmetrical lids. 3.ENT: Atraumatic external nose and ears. Moist MM. Neck: Symmetric, trachea midline, No thyromegaly. 4.CVS: +S1/S2, No murmurs or gallops. Peripheral pulses 2+ and equal in all extremities. Brisk capillary refill in all extremities. 5.RESP: Unlabored respiratory effort. Mild wheezes throughout, scattered rhonchi inferiorly. 6.GI: Soft, Nontender/Nondistended, No hepatosplenomegaly. No guarding or rebound. 7.MSK: Normocephalic/Atraumatic, Extremities w/o deformity or ttp No cyanosis or clubbing, Normal movement of all extremities 8.Skin: Warm, Dry. No rashes or lesions. 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 Sensation grossly intact, no focal neurologic deficits. 10.Psych: (AAO) x3. Appropriate mood and affect Course Vital Signs Vital signs: Vital Signs Temperature 36.7 C 05/28/23 04:11 Pulse 72 05/28/23 04:11 Respiratory Rate 22 05/28/23 04:11 Blood Pressure 167/88 H 05/28/23 04:11 Pulse Oximetry 100 05/28/23 04:11 Temperature 36.7 C 05/28/23 04:11 Temperature Source Temporal Artery Scan 05/28/23 04:11 Pulse 72 05/28/23 04:11 Respiratory Rate 22 05/28/23 04:11 Blood Pressure 167/88 H 05/28/23 04:11 Pulse Oximetry 100 05/28/23 04:11 Oxygen Delivery Method Nasal Cannula 05/28/23 04:11 Oxygen Flow Rate 4 05/28/23 04:11 Pain Level 0 05/28/23 04:11
[2023-05-28] MEDS: Albuterol/Ipratropium 3 ML UPD VIAL UPD ×2 (04:28→05:20)
[2023-05-28] MEDS: methylPREDNISolone SUCC 125 MG VIAL IVP (04:32)
[2023-05-28 04:39] LABS: BE (Venous) 7 mmol/L (-2-3); HCO3 (Venous) 32 mmol/L (23-28); O2 Sat (Venous) 53 %; TCO2 (Venous) 29 mmol/L (24-29); pCO2 (Venous) 55 mmHg (41-51); pH (Venous) 7.37 (7.31-7.41); pO2 (Venous) 30 mmHg
[2023-05-28 04:41] LABS: Abs Immature Grans 0.03 10^3/uL (0.0-0.06); Absolute Lymphocyte Count 2.83 10^3/uL (1.2-3.4); Basophils % 0.2; Eosinophils % 0.8; HCT 38.6 % (36.0-46.0); Immature Grans % 0.2; Lymphocytes % 23.2; MCH 32.8 pg (27.0-33.0); MCHC 33.7 % (32.0-36.0); MCV 98 fL (80-95); MPV 11.3 fL (8.0-11.0); Monocytes % 7.4; Neutrophils % 68.2; Platelet Count 213 10^3/uL (130-400); RBC 3.96 10^6/uL (3.93-5.22); RDW 12.2 % (11.7-14.6); RDW-SD 44.2 fL; WBC 12.19 10^3/uL (4.4-10.8)
[2023-05-28 04:42] LABS: Absolute Basophil Count 0.02 10^3/uL (0.0-0.2); Absolute Neutrophil Count 8.31 10^3/uL (1.2-6.7)
--- NOTE | 2023-05-28 05:02 | DI.RAD_ITS ---
Exam(s) XR PORTABLE CHEST AP EXAM: XR PORTABLE CHEST AP CLINICAL HISTORY: sob, r/o pneumonia TECHNIQUE: 2D digital imaging was performed of the chest. One image was obtained. An AP view was ob tained. COMPARISON: CR XR PORTABLE CHEST AP from 04/30/2022 CR XR CHEST 2V PA LATERAL from 05/26/2023 FINDINGS: MEDIASTINUM: Normal. HEART: Normal. PULMONARY VASCULATURE: Normal. LUNGS: Clear. PLEURAL SPACE: No pleural effusion or pneumothorax. BONE:Within normal limits for the patient's age. OTHER FINDINGS:Normal. IMPRESSION: No acute pulmonary findings. DATA REPOSITORY: RADIATION DOSE DELIVERED:
[2023-05-28 05:04] LABS: ALT 21 U/L (14-59); AST 24 U/L (15-37); Albumin 3.4 g/dL (3.4-5.0); Alkaline Phosphatase 67 U/L (46-116); Anion Gap 7.3 mmol/L (3-11); BUN 21 mg/dL (7-18); Bilirubin, Total 0.3 mg/dL (0.2-1.0); CO2 30.7 mmol/L (21.0-32.0); Calcium 9.3 mg/dL (8.5-10.1); Chloride 102 mmol/L (98-107); Estimated GFR 56.95 (mL/min/1.73m2); Glucose 100 mg/dL (74-106); Potassium 4.1 mmol/L (3.5-5.1); Sodium 140 mmol/L (136-145); Total Protein 7.3 g/dL (6.4-8.2); Troponin I < 50 ng/L (<or=60)
--- NOTE | 2023-05-28 05:06 | NUR.NOTE ---
PTs O2 decreased from 4L to no O2.Nursing Note:
[2023-05-28 05:16] LABS: COVID-19 PCR Negative (Negative); Influenza A PCR Negative (Negative); Influenza B PCR Negative (Negative); RSV PCR Negative (Negative)
[2023-05-28 05:21] LABS: Source Nasopharynx
[2023-05-28] MEDS: Albuterol HFA 8 GM 60 PUFF INH IH (05:23)
[2023-05-28] MEDS: Budesonide/Formoterol 160/4.5 6 GM 60 PUFF INH IH (05:24)
[2023-05-28] MEDS: Inhaler, Assist Device 1 EACH MC (05:24)
[2023-05-28] MEDS: predniSONE 20 MG TAB 60 MG PO (05:29)
--- NOTE | 2023-05-28 06:04 | DI.VRAD_ITS ---
PROCEDURE INFORMATION: Exam: XR Chest Exam date and time: 05/28/2023 4:59 AM Age: 78 years old Clinical indication: Shortness of breath TECHNIQUE: Imaging protocol: Radiologic exam of the chest. Views: 1 view. COMPARISON: CR XR CHEST 2V PA LATERAL 05/26/2023 11:30 AM FINDINGS: Lungs: Unremarkable. No consolidation. Pleural spaces: Unremarkable. No pleural effusion. No pneumothorax. Heart/Mediastinum: Unremarkable. No cardiomegaly. Bones/joints: Unremarkable. IMPRESSION: No acute findings. Dictated and Authenticated by: Osiel Rinaldi MD. Ordering:MAXX Vann MD
== END 2023-05-28 05:58 | disposition home or self-care (01) ==
PROVIDERS: Emergency Provider Student in an Organized Health Care Education/Training Program; PCP Nurse Practitioner Family
DX: J44.1 Chronic obstructive pulmonary disease with (acute) exacerbation (principal)
CPT/HCPCS: 36415; 80053; 82805; 87637; 93005; 96374; 99284; 71045; 84484; 85025; 93010; J2930; J7512; J7620

== ENCOUNTER 2024-09-21 07:55 | Emergency (ER) | payer MEDICARE, SELFPAY ==
[2024-09-21] VITALS (16 sets, daily range): BP systolic 81–170; BP diastolic 52–75; PULSE 83–108; RESP 18–36; TEMP 36.7–37.2; O2SAT 89–96
--- NOTE | 2024-09-21 07:45 | RT.EKG_ITS ---
APPROVED REPORT Exam: Resting ECG Reason for Exam: sob Patient Location: E HR:98 bpm ECG Measurements Heart Rate 98 AXIS MN 88 P 46 QRSd 79 QRS 58 QT 345 T 66 QTc 441 Conclusion Sinus rhythm 98 TWI V2., V3 no stemi no change from prior
--- NOTE | 2024-09-21 08:00 | DI.RAD_ITS ---
Exam(s) XR PORTABLE CHEST AP EXAM: XR PORTABLE CHEST AP CLINICAL HISTORY: cough. TECHNIQUE: 2D digital imaging was performed. COMPARISON: CR,XR XR PORTABLE CHEST AP from 05/28/2023 FINDINGS: Single AP portable view. Patient is rotated towards the left. Heart size is upper normal. The mediastinum is not widened. Lungs are clear. No infiltrates nor obvious pleural effusions. IMPRESSION: No acute pulmonary findings on this single AP portable view of the chest. DATA REPOSITORY: RADIATION DOSE DELIVERED:
--- NOTE | 2024-09-21 08:07 | ED.GENADUL_ITS ---
Discharge Plan Disposition Patient Disposition: Home Discharge Details Clinical Impression: Fatigue, Cough, Acute UTI Primary Care Provider: Dilma Dubose ED Provider: Viki King Home Meds and New Rx's Prescriptions: No Action multivitamin Tablet 1 tab PO DAILY metoprolol tartrate 100 mg Tablet 50 mg PO BID calcium carbonate 600 mg calcium (1,500 mg) Tablet 600 mg PO TID methimazole 5 mg Tablet 2.5 mg PO DAILY lisinopril 5 mg Tablet 2.5 mg PO DAILY benzonatate 100 mg Capsule 200 mg PO TID PRN melatonin 3 mg Tablet 3 mg PO HS Qty: 0 0RF Combivent Respimat 20-100 mcg/actuation mist 1 puff inhalation Q6H PRN (Reason: shortness of breath or wheezing) Qty: 4 0RF Discharge Instructions Additional Instructions: Her symptoms are likely due to her still recovering from her recent COVID infection Her lab work does not demonstrate significant abnormalities Her chest x-ray does not show a pneumonia There were some minor signs of infection on the urinalysis. A culture has been sent and a single dose of antibiotics was given in the emergency department for treatment. Please continue routine care and follow-up with PCP HPI General Date/Time Provider Initiated Documentation: 09/21/24 08:00 . Limitations to Documentation: no limitations . Information obtained by: patient . HPI Narrative: 79-year-old female with past medical history of COPD, tobacco abuse, hypertension hypothyroid presents for evaluation of fatigue, generalized weakness, increasing cough and shortness of breath. Patient was diagnosed with COVID on September 08. She did complete a course of Paxlovid and was given 5 days of steroids. I wonder if her household have COVID as well. She reports that she was feeling better for a few days but symptoms then returned and have been progressively worsening. Family reported to EMS that she is having difficulty walking around the house due to weakness. She has not had any fever, but has been having chills. EMS reports normal oxygen levels on room air. Related Data Home Medications ?Medication ?Instructions ?Recorded ?Confirmed benzonatate 100 mg capsule 200 mg PO TID PRN 04/30/22 09/21/24 calcium carbonate 600 mg PO TID 04/30/22 09/21/24 lisinopril 5 mg tablet 2.5 mg PO DAILY 04/30/22 09/21/24 methimazole 5 mg tablet 2.5 mg PO DAILY 04/30/22 09/21/24 metoprolol tartrate 100 mg tablet 50 mg PO BID 04/30/22 09/21/24 multivitamin 1 tab PO DAILY 04/30/22 09/21/24 melatonin 3 mg tablet 3 mg PO HS #0 tabs 05/04/22 09/21/24 ipratropium 20 mcg-albuterol 100 1 puff inhalation Q6H PRN 05/26/23 09/21/24 mcg/actuation mist for inhalation shortness of breath or wheezing #4 (Combivent Respimat) grams Previous Rx's ?Medication ?Instructions ?Recorded melatonin 3 mg tablet 3 mg PO HS #0 tabs 05/04/22 ipratropium 20 mcg-albuterol 100 1 puff inhalation Q6H PRN 05/26/23 mcg/actuation mist for inhalation shortness of breath or wheezing #4 (Combivent Respimat) grams Allergies Allergy/AdvReac Type Severity Reaction Status Date / Time aspirin Allergy Unknown Unverified 09/21/24 08:09 bee venom protein (honey bee) Allergy Anaphylaxis Unverified 09/21/24 08:09 Penicillins Allergy Other (See Unverified 09/21/24 08:09 Comment) General Stated Complaint: RespSymp CODY: 3 Exam Narrative Exam Narrative: Review of Systems: All systems reviewed & are unremarkable except as noted in HPI and below Very thin, elderly, frail, chronically ill-appearing NCAT Mild tachycardia Unlabored respiratory effort no tachypnea or hypoxia, is a very loose cough bilateral breath sounds are coarse, no focality appreciated Nondistended abdomen soft nontender Extremities w/o edema Course Vital Signs Vital signs: Vital Signs Pulse 100 H 09/21/24 07:57 Respiratory Rate 22 09/21/24 07:57 Blood Pressure 170/75 H 09/21/24 07:57 Pulse Oximetry 94 09/21/24 07:57 Pulse 100 H 09/21/24 07:57 Respiratory Rate 22 09/21/24 07:57 Blood Pressure 170/75 H 09/21/24 07:57 Pulse Oximetry 94 09/21/24 07:57 Oxygen Delivery Method Room Air 09/21/24 07:57 Oxygen Flow Rate 0 09/21/24 07:57 Lab/Test Results Lab/Test Results: 09/21/24 08:01 Blood Blood Culture - Pending 09/21/24 08:01 Blood Blood Culture - Pending Medical Decision Making Emergent evaluation of cough and shortness of breath. Patient has recent COVID diagnosis and completed a course of Paxil bid. At this time she is not hypoxic or requiring airway intervention however she is having increased symptoms of shortness of breath. Cough sounds very loose. Initial differential includes pneumonia, sepsis, CHF. Given her history will give additional dose of IV steroids, will check lab work, cultures, chest x-ray. EKG independently interpreted: Sinus 98 normal axis no STEMI Lab work reviewed. Mild leukocytosis at 17. Though this may be nonspecific given her recent steroid use. No anemia. No other electrolyte derangement. Troponin x 2 is flat. BNP is not elevated. Chest x-ray reviewed and independently interpreted, and there is no sign of focal consolidation. Patient is hemodynamically stable. Able to ambulate around the department with her walker which is baseline. No obvious difficulty with ambulation Urinalysis does reveal some signs of infection though not overtly infected. I do not feel that this is her cause of her symptoms or her leukocytosis. Culture has been sent. A single dose of fosfomycin was given. Discussed with son who is at bedside and they feel comfortable going home at this time no indication for hospitalization. Patient discharged in stable condition. Recommend continued supportive care follow-up with PCP as needed. Quality:SDOH Health Related Social Needs: No Data to Display PFSH All Active Problems (Updated 09/21/24 @ 11:41 by Viki King MD) Acute UTI (Acute) Cough (Acute) Fatigue (Acute) Anorexia (Acute) COVID (Acute) Hyperlipidemia (Acute) Hypertension (Chronic) Social History Smoking/Tobacco Use Status: Current every day Tobacco Type: cigarettes Years smoked: 20 Smoking risk assessment performed?: Yes Alcohol Intake: former Substance use type: does not use Do you feel safe at home: Yes Do you feel safe in your relationship?: Yes
[2024-09-21 08:42] LABS: Abs Immature Grans 0.19 10^3/uL (0.0-0.06); Absolute Basophil Count 0.04 10^3/uL (0.0-0.2); Absolute Monocyte Count 1.54 10^3/uL (0.1-0.8); Absolute Neutrophil Count 14.37 10^3/uL (1.2-6.7); Basophils % 0.2 %; Eosinophils % 0.3 %; HCT 39.5 % (36.0-46.0); HGB 13.3 g/dL (11.2-15.7); Immature Grans % 1.1 %; Lymphocytes % 8.4 %; MCH 32.8 pg (27.0-33.0); MCHC 33.7 % (32.0-36.0); MCV 98 fL (80-95); MPV 10.8 fL (8.0-11.0); Neutrophils % 81.3 %; Platelet Count 196 10^3/uL (130-400); RBC 4.05 10^6/uL (3.93-5.22); RDW 12.1 % (11.7-14.6); RDW-SD 43.8 fL; WBC 17.68 10^3/uL (4.4-10.8)
[2024-09-21] MEDS: methylPREDNISolone SUCC 125 MG VIAL IVP (08:46)
[2024-09-21 09:01] LABS: ALT 32 U/L (14-59); AST 21 U/L (15-37); Albumin 2.7 g/dL (3.4-5.0); Alkaline Phosphatase 70 U/L (46-116); BUN 11 mg/dL (7-18); Bilirubin, Total 0.95 mg/dL (0.2-1.0); CREATININE 0.8 mg/dL (0.55-1.02); Chloride 99 mmol/L (98-107); Estimated GFR 73.98 (mL/min/1.73m2); Glucose 116 mg/dL (74-106); Magnesium 1.9 mg/dL (1.8-2.4); Potassium 4.3 mmol/L (3.5-5.1); Sodium 136 mmol/L (136-145); Total Protein 6.7 g/dL (6.4-8.2); Troponin I 5 ng/L (<or=51)
[2024-09-21 09:07] LABS: Absolute Eosinophil Count 0.05 10^3/uL (0.0-0.7); Absolute Lymphocyte Count 1.49 10^3/uL (1.2-3.4)
[2024-09-21 09:08] LABS: Monocytes % 8.7 %; NT-proBNP 229 pg/mL (<300)
[2024-09-21 10:11] LABS: Troponin I 5 ng/L (<or=51)
[2024-09-21 11:06] LABS: Bilirubin Negative (Negative); Blood Trace-intact (Negative); Clarity Clear (Clear); Glucose Negative (Negative); Ketones 15 mg/dL (Negative); Leukocyte Esterase Trace (Negative); Nitrite Negative (Negative); Urobilinogen 0.2 mg/dL (Up to 0.2); pH 6.5 (5-8)
[2024-09-21 11:14] LABS: Bacteria Few HPF (Negative); C & S Indicated? Yes; Casts 0-2 Hyaline LPF (Negative); Crystals Negative HPF (Negative); Epithelial Cells Rare HPF (Negative); Mucus Negative (Negative); Other Cells Negative (Negative)
[2024-09-21] MEDS: Metoprolol 50 MG TAB PO (12:01)
[2024-09-21] MEDS: Fosfomycin Tromethamine 3 GM PACKET PO (12:01)
== END 2024-09-21 12:07 | disposition home or self-care (01) ==
PROVIDERS: Emergency Provider Emergency Medicine; PCP Physician Assistant Medical
DX: R53.83 Other fatigue (principal); R05.9 Cough, unspecified; N39.0 Urinary tract infection, site not specified; I10 Essential (primary) hypertension; E03.9 Hypothyroidism, unspecified; F17.210 Nicotine dependence, cigarettes, uncomplicated
CPT/HCPCS: 36415; 80053; 87040; 87426; 93005; 96374; 99285; 71045; 81003; 81015; 83735; 83880; 84484; 85025; 87086; 93010; 99284; J2919; J3490

== ENCOUNTER 2024-09-23 07:06 | Observation (INO) | payer MEDICARE, SELFPAY ==
[2024-09-23] VITALS (83 sets, daily range): BP systolic 95–184; BP diastolic 43–101; PULSE 47–155; RESP 16–41; TEMP 36.4–37.2; O2SAT 86–100
--- NOTE | 2024-09-23 07:15 | RT.EKG_ITS ---
APPROVED REPORT Exam: Resting ECG Reason for Exam: dyspnea Patient Location: E HR:108 bpm ECG Measurements Heart Rate 108 AXIS HI 122 P 66 QRSd 73 QRS 7 QT 329 T 41 QTc 441 Conclusion Sinus tachycardia...rate> 99 Probable left atrial enlargement...P >50mS, <-0.10mV V1
--- NOTE | 2024-09-23 07:15 | DI.CT_ITS ---
Exam(s) CT CHEST PE CTA EXAM: CT CHEST PE CTA CLINICAL HISTORY: dyspnea, tachycardia. TECHNIQUE: Imaging Protocol: CT angiography of the chest was performed using pulmonary embolus natalie col. Multi planar reconstructions were performed. CONTRAST MATERIAL: Intravenous: Omnipaque 350 Contrast volume: 100 cc COMPARISON: CT CT CHEST PE CTA from 04/30/2022 FINDINGS: CHEST: PULMONARY ARTERIES: There are no intraluminal filling defects to suggest acute pulmonary emboli. LUNGS: There is no evidence of pulmonary infarction. Asymmetric pleural based infiltrate is noted in the right lung apex, possibly scarring. There is no associated rib destruction.. No other signific ant focal lung findings and there are no pleural effusions. No significant focal findings in the tra arely and mainstem bronchi although the trachea is mildly compressed and deviated towards the right si de by an enlarged thyroid gland. MEDIASTINUM: There is no hilar nor mediastinal adenopathy. Enlarged thyroid gland left lobe larger th an right and probably containing nodules. CARDIAC: Heart size is upper normal. There is no pericardial effusion.The ascending thoracic aorta i s dilated-ectatic with diameter 4 cm. There is no evidence of dissection. The diameter of the aorti c arch and descending thoracic aorta are upper normal. There is no significant shift of the interve ntricular septum. PARTIALLY VISUALIZED UPPERMOST ABDOMEN: The partially visualized abdominal aorta is heavily calcified and contains abundant mural thrombus on its right side at approximately the renal artery takeoff poi nt levels. Diameter at this level is 2.5 cm. Please note the entire abdominal aorta is not included in the field of the with the study. OSSEOUS: No significant osseous lesions.. IMPRESSION: 1. No evidence of acute pulmonary emboli. No evidence of pulmonary infarction.No pleural effusions. 2. There is unilateral sub apical pleural based infiltrate versus scarring in the right upper lobe, n ot associated with overlying rib destruction. 3. Ectatic ascending thoracic aorta with diameter 4 cm. No evidence of aortic dissection nor pericar dial effusion. RADIATION DOSE DELIVERED: 45.11mGy.cm Total DLP DATA REPOSITORY: All CT scans at this facility are submitted to the National Radiology Data Registry (NRDR) Dose Index Registry (DIR) with the [employer] (A[employer]). RADIATION OPTIMIZATION: All CT scans at this facility use at least one of these dose optimization te chniques: automated exposure control; mA and/or kV adjustment per patient size (includes targeted exa ms where dose is matched to clinical indication); or iterative reconstruction.
--- NOTE | 2024-09-23 07:26 | ED.GENADUL_ITS ---
Discharge Plan Disposition Patient Disposition: Admit to [facility] Condition: Stable Discharge Details Clinical Impression: Shortness of breath, COPD exacerbation Primary Care Provider: Dilma Dubose ED Provider: Marc Echols Home Meds and New Rx's Prescriptions: No Action multivitamin Tablet 1 tab PO DAILY metoprolol tartrate 100 mg Tablet 50 mg PO BID calcium carbonate 600 mg calcium (1,500 mg) Tablet 600 mg PO TID methimazole 5 mg Tablet 2.5 mg PO DAILY lisinopril 5 mg Tablet 2.5 mg PO DAILY melatonin 3 mg Tablet 3 mg PO HS Qty: 0 0RF Combivent Respimat 20-100 mcg/actuation mist 1 puff inhalation Q6H PRN (Reason: shortness of breath or wheezing) Qty: 4 0RF HPI General Mode of arrival: EMS . Date/Time Provider Initiated Documentation: 09/23/24 07:12 . Limitations to Documentation: no limitations . Information obtained by: patient . History of Present Illness 79 year old F presents to the emergency department with the chief complaint of cough and dyspnea, described as moderate, Patient started experiencing this week(s) (2) and it has been intermittent. No relieving factors improve symptom(s), No exacerbating factors reported . Patient notes chest pain; denies fever/chills and nausea/vomiting. Patient did receive the following treatments prior to arrival, none Related Data Home Medications ?Medication ?Instructions ?Recorded ?Confirmed calcium carbonate 600 mg PO TID 04/30/22 09/23/24 lisinopril 5 mg tablet 2.5 mg PO DAILY 04/30/22 09/23/24 methimazole 5 mg tablet 2.5 mg PO DAILY 04/30/22 09/23/24 metoprolol tartrate 100 mg tablet 50 mg PO BID 04/30/22 09/23/24 multivitamin 1 tab PO DAILY 04/30/22 09/23/24 melatonin 3 mg tablet 3 mg PO HS #0 tabs 05/04/22 09/23/24 ipratropium 20 mcg-albuterol 100 1 puff inhalation Q6H PRN 05/26/23 09/23/24 mcg/actuation mist for inhalation shortness of breath or wheezing #4 (Combivent Respimat) grams Previous Rx's ?Medication ?Instructions ?Recorded melatonin 3 mg tablet 3 mg PO HS #0 tabs 05/04/22 ipratropium 20 mcg-albuterol 100 1 puff inhalation Q6H PRN 05/26/23 mcg/actuation mist for inhalation shortness of breath or wheezing #4 (Combivent Respimat) grams Allergies Allergy/AdvReac Type Severity Reaction Status Date / Time aspirin Allergy Unknown Unverified 09/23/24 07:15 bee venom protein (honey bee) Allergy Anaphylaxis Unverified 09/23/24 07:15 Penicillins Allergy Other (See Unverified 09/23/24 07:15 Comment) General Stated Complaint: RespSymp CODY: 3 Review of Systems All systems reviewed & are unremarkable except as noted in HPI and below Constitutional Constitutional: Denies chills, Denies fever(s) and Denies weakness ENT Ears, Nose, Mouth, and Throat: Denies change in voice Cardiovascular Cardiovascular: Reports chest pain and Reports dyspnea Respiratory Respiratory: Reports cough and Reports dyspnea Gastrointestinal Gastrointestinal: Denies abdominal pain, Denies nausea and Denies vomiting Neurologic Neurologic: Denies weakness Psychiatric Psychiatric: Denies depression Exam Const General: no acute distress Orientation: alert HENKS Head: normal to inspection Ears: external ears normal General nose exam: external nose normal Mouth: moist mucous membranes Eyes General: appearance normal, both eyes and all related structures Neck Neck: normal visual inspection Resp Auscultation: wheezes Cardio Jugular venous pressure: no JVD Rate: regular rate Skin General skin exam: no rashes or lesions noted Neuro General: patient alert and patient oriented x3 Extrem General: normal to inspection Psych Mental Status: mental status grossly normal Course Vital Signs Vital signs: Vital Signs Temperature 36.4 C 09/23/24 07:08 Pulse 124 H 09/23/24 07:08 Respiratory Rate 26 H 09/23/24 07:08 Blood Pressure 184/83 H 09/23/24 07:08 Pulse Oximetry 93 09/23/24 07:08 Temperature 36.4 C 09/23/24 07:14 Temperature Source Oral 09/23/24 07:14 Pulse 124 H 09/23/24 07:14 Respiratory Rate 26 H 09/23/24 07:14 Blood Pressure 184/83 H 09/23/24 07:14 Blood Pressure Position Sitting 09/23/24 07:14 Pulse Oximetry 93 09/23/24 07:14 Oxygen Delivery Method Room Air 09/23/24 07:14 Oxygen Flow Rate 0 09/23/24 07:14 Lab/Test Results Lab/Test Results: 09/23/24 07:01 Blood Blood Culture - Pending 09/23/24 07:01 Blood Blood Culture - Pending Medical Decision Making 79-year-old female with history of hypertension, hyperlipidemia, history for COVID over a week ago with Paxlovid and was seen 2 days ago for shortness of breath and cough and discharged comes in with continued cough and shortness of breath. She denies any fevers, she says when she coughs she has anterior chest pain. She speaking full sentences on exam, she is tachypneic on arrival. She does have wheezing at the apices bilaterally and rhonchi at the bases bilaterally. No JVD or leg swelling. Given the continued symptoms we will proceed with CBC, CMP, blood cultures, procalcitonin and troponins, given continued shortness of breath and a negative chest x-ray x-rays ago will obtain CTA to evaluate for PE versus infiltrates that were not seen on the chest x-ray. Will also treat her symptoms with a DuoNeb and dexamethasone and reassess Labs show white count of over 20, otherwise no significant findings. CTA shows no PE, does have emphysematous changes. She reportedly still smokes per the son. She still has rhonchi at the bases, will order another DuoNeb while delta troponin pending. I also am covering her for COPD exacerbation with levofloxacin as she has penicillin allergy. Does have evidence of hyperthyroidism but is not currently taking her methimazole. she is positive for COVID but she tested +2 weeks ago at [facility] and finished 5 days of Paxlovid so I do not feel that the COVID is not the primary cause for her symptoms today. Delta troponin negative. Patient is still tachypneic in the high 20s low 30s. Lung sounds have improved but given the continued tachypnea and now tachycardia in the 130s 140s which I suspect is from her nebulization she received in her age I will discuss with hospitalist about admission for continued treatment of her emphysema/COPD exacerbation Differential Diagnosis Differential Diagnosis: pneumonia, flu, bronchitis, PE Medical Records Medical records reviewed: Yes I reviewed the patient's medical records. Lab Data Lab results reviewed: Yes I reviewed the patient's lab results. ECG Data Attestation: I personally reviewed and interpreted this ECG (s) as follows: Prior ECG tracings: available for review Interpretation: sinus tachycardia rate of 108 pr 122 no stemi Quality:SDOH Health Related Social Needs: No Data to Display PFSH All Active Problems (Updated 09/23/24 @ 13:40 by Milind Moffett) DVT prophylaxis (Acute) Hyperthyroidism (Chronic) COPD exacerbation (Acute) Shortness of breath (Acute) Acute UTI (Acute) Cough (Acute) Fatigue (Acute) Anorexia (Acute) COVID (Acute) Hyperlipidemia (Acute) Hypertension (Chronic) Social History Smoking/Tobacco Use Status: Current every day Tobacco Type: cigarettes Years smoked: 20 Smoking risk assessment performed?: Yes Alcohol Intake: former Substance use type: does not use Do you feel safe at home: Yes Do you feel safe in your relationship?: Yes
[2024-09-23 07:48] LABS: HCT 38.9 % (36.0-46.0); MCH 32.7 pg (27.0-33.0); MCHC 33.4 % (32.0-36.0); MCV 98 fL (80-95); MPV 10.8 fL (8.0-11.0); Platelet Count 251 10^3/uL (130-400); RBC 3.97 10^6/uL (3.93-5.22); RDW 12.2 % (11.7-14.6); RDW-SD 44.1 fL; WBC 23.35 10^3/uL (4.4-10.8)
[2024-09-23] MEDS: Normal Saline - Diluent 50 ML VIAL IJ (07:58)
[2024-09-23] MEDS: Omnipaque 350 MG/ML 100 ML BTL 60 ML IJ (07:59)
[2024-09-23 08:11] LABS: ALT 28 U/L (14-59); AST 18 U/L (15-37); Absolute Lymphocyte Count 1.17 10^3/uL (1.2-3.4); Absolute Neutrophil Count 21.48 10^3/uL (1.2-6.7); Albumin 2.7 g/dL (3.4-5.0); Alkaline Phosphatase 71 U/L (46-116); Anion Gap 2.9 mmol/L (3-11); BUN 13 mg/dL (7-18); Bands % 2 %; Bilirubin, Total 0.52 mg/dL (0.2-1.0); CO2 32.1 mmol/L (21.0-32.0); CREATININE 0.8 mg/dL (0.55-1.02); Calcium 8.7 mg/dL (8.5-10.1); Chloride 103 mmol/L (98-107); Diff Comment Manual Differential; Estimated GFR 73.98 (mL/min/1.73m2); Glucose 118 mg/dL (74-106); NT-proBNP 373 pg/mL (<300); RBC Morphology Normal; Sodium 138 mmol/L (136-145); TSH (W/Ref FT4) 0.19 uIU/mL (0.36-3.74); Total Protein 6.8 g/dL (6.4-8.2); Troponin I 5 ng/L (<or=51)
[2024-09-23 08:13] LABS: PTT Activated 21.5 sec (20.6-30.2); Prothrombin Time 9.8 sec (9.1-11.1)
[2024-09-23 08:16] LABS: Influenza A PCR Negative (Negative); Influenza B PCR Negative (Negative); RSV PCR Negative (Negative)
[2024-09-23 08:17] LABS: Source Nasopharynx
[2024-09-23 08:18] LABS: COVID-19 PCR Positive (Negative)
[2024-09-23 08:21] LABS: Procalcitonin < 0.10 ng/mL
--- NOTE | 2024-09-23 08:22 | DI.VRAD_ITS ---
Addendum created by Vianca Holly MD on 09/23/2024 8:23:32 AM EST: Not mentioned above: Punctate renal calculi. Kidneys are incompletely imaged. Pancreatic calcifications, suggesting sequelae of chronic pancreatitis. Correlate clinically. Initial report created on 09/23/2024 8:21:50 AM EST: PROCEDURE INFORMATION: Exam: CTA Chest With Contrast Exam date and time: 09/23/2024 8:06 AM Age: 79 years old Clinical indication: Dyspnea TECHNIQUE: Imaging protocol: Computed tomographic angiography of the chest with contrast. Exam focused on the arteries. 3D rendering (Not supervised by radiologist): MIP and/or 3D reconstructed images were created by the technologist. Radiation optimization: All CT scans at this facility use at least one of these dose optimization techniques: automated exposure control; mA and/or kV adjustment per patient size (includes targeted exams where dose is matched to clinical indication); or iterative reconstruction. Contrast material: OMNI 350; Contrast volume: 60 ml; Contrast route: INTRAVENOUS (IV); COMPARISON: CT CHEST PE CTA 04/30/2022 1:01 PM FINDINGS: Limitations: Images degraded due to artifact caused by patient motion and arm positioning. Pulmonary arteries: No pulmonary embolus is appreciated. Aorta: Atherosclerotic changes in the aorta and its branches. Ascending thoracic aorta ectatic to 4 cm. Lungs: Emphysematous changes in the lungs. Pleural spaces: No pleural effusion. Heart: No pericardial effusion. Coronary arteries: Coronary artery calcifications. Lymph nodes: No acute abnormality seen. Diaphragm: Elevated left hemidiaphragm. Liver: Calcifications in the liver. Bones/joints: No acute pertinent abnormality seen. Soft tissues: No acute pertinent abnormality seen. IMPRESSION: 1. No acute findings to explain reported symptoms. 2. Nonacute findings as outlined above. Dictated and Authenticated by: Vianca Holly MD. Ordering:SARA Tran MD
[2024-09-23 08:29] LABS: FREE T4 1.75 ng/dL (0.76-1.46)
[2024-09-23] MEDS: Dexamethasone 10 MG/ML VIAL IVP (08:29)
[2024-09-23] MEDS: Albuterol/Ipratropium 3 ML UPD VIAL UPD ×2 (08:29→09:28)
[2024-09-23 08:34] LABS: Bilirubin Negative (Negative); Blood Trace-lysed (Negative); Clarity Clear (Clear); Glucose Negative (Negative); Ketones Negative (Negative); Leukocyte Esterase Negative (Negative); Nitrite Negative (Negative); Specific Gravity 1.015 (1.005-1.025); Urobilinogen 0.2 mg/dL (Up to 0.2)
[2024-09-23 08:43] LABS: Bacteria Negative HPF (Negative); C & S Indicated? No; Casts Negative LPF (Negative); Crystals Negative HPF (Negative); Epithelial Cells Negative HPF (Negative); Mucus Negative (Negative); RBC 0-2 HPF (0-2); WBC 0-2 HPF (0-5)
[2024-09-23] MEDS: levoFLOXacin 750 MG/150 ML BAG 100 MG IVPB (09:21)
[2024-09-23 09:46] LABS: Troponin I 5 ng/L (<or=51)
[2024-09-23] MEDS: Acetaminophen 500 MG TAB (09:55)
[2024-09-23] MEDS: Normal Saline 250 ML 500 ML IV (10:44)
[2024-09-23] MEDS: Levalbuterol 1.25 MG/3 ML UPD VIAL UPD (12:52)
--- NOTE | 2024-09-23 13:36 | W.PM.HP.N ---
Date of service: 09/23/24 Time of Service: 13:55 Assessment and Plan Assessment and plan (1) COPD exacerbation: Status: Acute Assessment and plan: Increase cough and sputum. Not hypoxic but very short of breath. In respiratory distress, so I agree with observing in the hospital She was not aware of COPD diagnosis but emphysema on CT. WBC elevated but no clear infiltrate, procalcitonin not elevated. She is making sputum. Will treat with doxycycline along with steroids and nebs. Levalbuterol given tachycardia. Can try low dose lorazepam for anxiety. (2) COVID: Status: Acute Assessment and plan: s/p COVID diagnosed 09/11, treated with paxlovid ending 09/17. PCR still positive but not hypoxic. At this point I don't think remdesavir is indicated. (3) Hyperthyroidism: Status: Chronic Assessment and plan: uncontrolled off methimazole therapy. She seems to have missed her morning metoprolol as well. Will resume both. (4) Tachycardia: Status: Acute Assessment and plan: Sinus tachycardia related to some mild dehydration, bronchodilators, and uncontrolled hyperthyroidism. Giving another 500ml of fluids, metoprolol, and monitor. (5) Smoker: Status: Acute Assessment and plan: nicotene prn (6) Subcutaneous mass of back: Assessment and plan: She did not know what this is, but this was present on CT scan in 2021, so unlikely malignant. (7) DVT prophylaxis: Status: Acute Assessment and plan: LMWH (8) Ectatic thoracic aorta: Assessment and plan: outpatient f/u History of Present Illness History of Present Illness Chief Complaint: short of breath Narrative: 79 yo F with history of hypertension and hyperthyroidism presented to the emergency room with 4 days of progressive cough, fatigue, and shortness of breath. She recently had cough and cold symptoms and was diagnosed with COVID on 09/11. At that point she was treated with paxlovid. She completed this 1 week prior to her presentation. She was feeling better, but 3-4 days later she started feeling more fatigued. She then developed cough and more shortness of breath. She has had some green sputum. She was getting some runny nose but not now. She hasn't had a fever. She hasn't been able to eat or drink much at all today she has been so short of breath. She feels like her heart is fast but no chest pain or dizziness. She feels like she is urinating less with less fluids, though her mouth is dry and she is thirsty. She was treated for hyperthyroidism in the past but her PCP took her off methimazole last year. She is taking her other medication regularly. Review of Systems All systems reviewed & are unremarkable except as noted in HPI and below PFSH All Active Problems (Updated 09/23/24 @ 17:15 by Milind Moffett) Smoker (Acute) Tachycardia (Acute) DVT prophylaxis (Acute) Hyperthyroidism (Chronic) COPD exacerbation (Acute) Shortness of breath (Acute) Acute UTI (Acute) Cough (Acute) Fatigue (Acute) Anorexia (Acute) COVID (Acute) Hyperlipidemia (Acute) Hypertension (Chronic) Medical History (Updated 09/23/24 @ 17:15 by Milind Moffett) Ectatic thoracic aorta 4cm Subcutaneous mass of back Surgical History S/P appendectomy Family History Son Diabetes Social History Smoking/Tobacco Use Status: Current every day Tobacco Type: cigarettes Years smoked: 20 Smoking risk assessment performed?: Yes Alcohol Intake: former Substance use type: does not use Do you feel safe at home: Yes Do you feel safe in your relationship?: Yes Additional Social history: Lives with son and 3 kids in [facility] Allergies and Home Medications Allergies Allergy/AdvReac Type Severity Reaction Status Date / Time aspirin Allergy Unknown Unverified 09/23/24 07:15 bee venom protein (honey bee) Allergy Anaphylaxis Unverified 09/23/24 07:15 Penicillins Allergy Other (See Unverified 09/23/24 07:15 Comment) Home Medications ?Medication ?Instructions ?Recorded ?Confirmed ?Type calcium carbonate 600 mg PO TID 04/30/22 09/23/24 History lisinopril 5 mg tablet 2.5 mg PO DAILY 04/30/22 09/23/24 History methimazole 5 mg tablet 2.5 mg PO DAILY 04/30/22 09/23/24 History metoprolol tartrate 100 mg tablet 50 mg PO BID 04/30/22 09/23/24 History multivitamin 1 tab PO DAILY 04/30/22 09/23/24 History melatonin 3 mg tablet 3 mg PO HS #0 tabs 05/04/22 09/23/24 Rx ipratropium 20 mcg-albuterol 100 1 puff inhalation Q6H PRN 05/26/23 09/23/24 Rx mcg/actuation mist for inhalation shortness of breath or wheezing #4 (Combivent Respimat) grams Exam Narrative Exam Narrative: GEN: Alert and oriented x 4, pleasant and cooperative, gives linear history. No acute distress at rest. HEENT: Head atraumatic. Conjunctiva clear, no icterus. PEERL, EOMI. no rhinorrhea. MM dry, OP benign. Neck is supple with no masses or lymphadenopathy, trachea midline. neck veins flat. LUNGS: Increased respiratory effort, tachypneic. No rales or wheeze, some relatively prolonged expiration. CV: RRR with no murmurs, gallops, or rubs. ABD: active bowel sounds, soft, nontender and nondistended. No masses. EXT: no cyanosis, clubbing, or edema MSK: No joint redness or swelling NEURO: CN 2-12 grossly intact. Normal movement of 4 extremities. Normal speech and coordination. No tremor SKIN: No rashes or open wounds. Large subcutaneous somewhat firm partially purple mass across her mid back, not tender. No drainage. PSYCH: normal mood and affect Results Imaging CT scan - chest: report reviewed (1. No acute findings to explain reported symptoms. 2. Ascending aorta 4cm ectatic, coronary calcifications ) EKG: report reviewed and image reviewed (sinus tachycardia, nl axis, intervals. No ischemic ST-T changes) Labs 09/23/24 07:35 09/23/24 07:35 Labs: Laboratory Results - last 24 hr 09/23/24 09/23/24 09/23/24 07:16 07:35 07:35 WBC 23.35 H RBC 3.97 Hgb 13.0 Hct 38.9 MCV 98 H MCH 32.7 MCHC 33.4 RDW 12.2 Plt Count 251 MPV 10.8 Immature Gran % See Differential Neutrophils % 90.0 Band Neutrophils % 2 Lymphocytes % 5.0 Monocytes % 3.0 Eosinophils % 0.0 Basophils % 0.0 Nucleated RBC % 0.0 Absolute Neutrophils 21.48 H Absolute Lymphocytes 1.17 L Absolute Monocytes 0.70 Absolute Eosinophils 0.00 Absolute Basophils 0.00 RBC Morphology Normal PT 9.8 INR 1.0 APTT 21.5 Sodium Cancelled 138 Potassium Cancelled Chloride Carbon Dioxide Anion Gap BUN Creatinine Est GFR (CKD-EPI 2020) Glucose Calcium Magnesium Total Bilirubin AST ALT Alkaline Phosphatase Troponin I NT-Pro-B Natriuret Pep Total Protein Albumin Procalcitonin TSH Free T4 Urine Color Urine Clarity Urine pH Ur Specific Ophiem Urine Protein Urine Ketones Urine Blood Urine Nitrite Urine Bilirubin Urine Urobilinogen Ur Leukocyte Esterase Urine RBC Urine WBC Ur Epithelial Cells Urine Crystals Urine Bacteria Urine Casts Urine Mucus Ur Culture Indicated? Urine Glucose COVID-19 Source Nasopharynx SARS-CoV-2 (PCR) Positive A Influenza Type A (PCR) Negative Influenza Type B (PCR) Negative RSV (PCR) Negative 09/23/24 09/23/24 09/23/24 07:35 07:35 07:35 WBC RBC Hgb Hct MCV MCH MCHC RDW Plt Count MPV Immature Gran % Neutrophils % Band Neutrophils % Lymphocytes % Monocytes % Eosinophils % Basophils % Nucleated RBC % Absolute Neutrophils Absolute Lymphocytes Absolute Monocytes Absolute Eosinophils Absolute Basophils RBC Morphology PT INR APTT Sodium Potassium 4.0 Chloride Cancelled 103 Carbon Dioxide Cancelled 32.1 H Anion Gap Cancelled BUN Creatinine Est GFR (CKD-EPI 2020) Glucose Calcium Magnesium Total Bilirubin AST ALT Alkaline Phosphatase Troponin I NT-Pro-B Natriuret Pep Total Protein Albumin Procalcitonin TSH Free T4 Urine Color Urine Clarity Urine pH Ur Specific [place]em Urine Protein Urine Ketones Urine Blood Urine Nitrite Urine Bilirubin Urine Urobilinogen Ur Leukocyte Esterase Urine RBC Urine WBC Ur Epithelial Cells Urine Crystals Urine Bacteria Urine Casts Urine Mucus Ur Culture Indicated? Urine Glucose COVID-19 Source SARS-CoV-2 (PCR) Influenza Type A (PCR) Influenza Type B (PCR) RSV (PCR) 09/23/24 09/23/24 09/23/24 07:35 07:35 07:35 WBC RBC Hgb Hct MCV MCH MCHC RDW Plt Count MPV Immature Gran % Neutrophils % Band Neutrophils % Lymphocytes % Monocytes % Eosinophils % Basophils % Nucleated RBC % Absolute Neutrophils Absolute Lymphocytes Absolute Monocytes Absolute Eosinophils Absolute Basophils RBC Morphology PT INR APTT Sodium Potassium Chloride Carbon Dioxide Anion Gap 2.9 L BUN Cancelled 13 Creatinine Cancelled 0.8 Est GFR (CKD-EPI 2020) Cancelled Glucose Calcium Magnesium Total Bilirubin AST ALT Alkaline Phosphatase Troponin I NT-Pro-B Natriuret Pep Total Protein Albumin Procalcitonin TSH Free T4 Urine Color Urine Clarity Urine pH Ur Specific [place]em Urine Protein Urine Ketones Urine Blood Urine Nitrite Urine Bilirubin Urine Urobilinogen Ur Leukocyte Esterase Urine RBC Urine WBC Ur Epithelial Cells Urine Crystals Urine Bacteria Urine Casts Urine Mucus Ur Culture Indicated? Urine Glucose COVID-19 Source SARS-CoV-2 (PCR) Influenza Type A (PCR) Influenza Type B (PCR) RSV (PCR) 09/23/24 09/23/24 09/23/24 07:35 07:35 07:35 WBC RBC Hgb Hct MCV MCH MCHC RDW Plt Count MPV Immature Gran % Neutrophils % Band Neutrophils % Lymphocytes % Monocytes % Eosinophils % Basophils % Nucleated RBC % Absolute Neutrophils Absolute Lymphocytes Absolute Monocytes Absolute Eosinophils Absolute Basophils RBC Morphology PT INR APTT Sodium Potassium Chloride Carbon Dioxide Anion Gap BUN Creatinine Est GFR (CKD-EPI 2020) 73.98 Glucose Cancelled 118 H Calcium Cancelled 8.7 Magnesium 2.0 Total Bilirubin Cancelled AST ALT Alkaline Phosphatase Troponin I NT-Pro-B Natriuret Pep Total Protein Albumin Procalcitonin TSH Free T4 Urine Color Urine Clarity Urine pH Ur Specific [place]em Urine Protein Urine Ketones Urine Blood Urine Nitrite Urine Bilirubin Urine Urobilinogen Ur Leukocyte Esterase Urine RBC Urine WBC Ur Epithelial Cells Urine Crystals Urine Bacteria Urine Casts Urine Mucus Ur Culture Indicated? Urine Glucose COVID-19 Source SARS-CoV-2 (PCR) Influenza Type A (PCR) Influenza Type B (PCR) RSV (PCR) 09/23/24 09/23/24 09/23/24 07:35 07:35 07:35 WBC RBC Hgb Hct MCV MCH MCHC RDW Plt Count MPV Immature Gran % Neutrophils % Band Neutrophils % Lymphocytes % Monocytes % Eosinophils % Basophils % Nucleated RBC % Absolute Neutrophils Absolute Lymphocytes Absolute Monocytes Absolute Eosinophils Absolute Basophils RBC Morphology PT INR APTT Sodium Potassium Chloride Carbon Dioxide Anion Gap BUN Creatinine Est GFR (CKD-EPI 2020) Glucose Calcium Magnesium Total Bilirubin 0.52 AST Cancelled 18 ALT Cancelled 28 Alkaline Phosphatase Cancelled Troponin I NT-Pro-B Natriuret Pep Total Protein Albumin Procalcitonin TSH Free T4 Urine Color Urine Clarity Urine pH Ur Specific [place] Urine Protein Urine Ketones Urine Blood Urine Nitrite Urine Bilirubin Urine Urobilinogen Ur Leukocyte Esterase Urine RBC Urine WBC Ur Epithelial Cells Urine Crystals Urine Bacteria Urine Casts Urine Mucus Ur Culture Indicated? Urine Glucose COVID-19 Source SARS-CoV-2 (PCR) Influenza Type A (PCR) Influenza Type B (PCR) RSV (PCR) 09/23/24 09/23/24 09/23/24 07:35 07:35 07:35 WBC RBC Hgb Hct MCV MCH MCHC RDW Plt Count MPV Immature Gran % Neutrophils % Band Neutrophils % Lymphocytes % Monocytes % Eosinophils % Basophils % Nucleated RBC % Absolute Neutrophils Absolute Lymphocytes Absolute Monocytes Absolute Eosinophils Absolute Basophils RBC Morphology PT INR APTT Sodium Potassium Chloride Carbon Dioxide Anion Gap BUN Creatinine Est GFR (CKD-EPI 2020) Glucose Calcium Magnesium Total Bilirubin AST ALT Alkaline Phosphatase 71 Troponin I 5 NT-Pro-B Natriuret Pep 373 H Total Protein Cancelled 6.8 Albumin Cancelled 2.7 L Procalcitonin < 0.10 TSH 0.19 L Free T4 1.75 H Urine Color Urine Clarity Urine pH Ur Specific [place]em Urine Protein Urine Ketones Urine Blood Urine Nitrite Urine Bilirubin Urine Urobilinogen Ur Leukocyte Esterase Urine RBC Urine WBC Ur Epithelial Cells Urine Crystals Urine Bacteria Urine Casts Urine Mucus Ur Culture Indicated? Urine Glucose COVID-19 Source SARS-CoV-2 (PCR) Influenza Type A (PCR) Influenza Type B (PCR) RSV (PCR) 09/23/24 09/23/24 08:29 09:24 WBC RBC Hgb Hct MCV MCH MCHC RDW Plt Count MPV Immature Gran % Neutrophils % Band Neutrophils % Lymphocytes % Monocytes % Eosinophils % Basophils % Nucleated RBC % Absolute Neutrophils Absolute Lymphocytes Absolute Monocytes Absolute Eosinophils Absolute Basophils RBC Morphology PT INR APTT Sodium Potassium Chloride Carbon Dioxide Anion Gap BUN Creatinine Est GFR (CKD-EPI 2020) Glucose Calcium Magnesium Total Bilirubin AST ALT Alkaline Phosphatase Troponin I 5 NT-Pro-B Natriuret Pep Total Protein Albumin Procalcitonin TSH Free T4 Urine Color Yellow Urine Clarity Clear Urine pH 6.0 Ur Specific Ophiem 1.015 Urine Protein Negative Urine Ketones Negative Urine Blood Trace-lysed H Urine Nitrite Negative Urine Bilirubin Negative Urine Urobilinogen 0.2 Ur Leukocyte Esterase Negative Urine RBC 0-2 Urine WBC 0-2 Ur Epithelial Cells Negative Urine Crystals Negative Urine Bacteria Negative Urine Casts Negative Urine Mucus Negative Ur Culture Indicated? No Urine Glucose Negative COVID-19 Source SARS-CoV-2 (PCR) Influenza Type A (PCR) Influenza Type B (PCR) RSV (PCR) Last Vital Signs Temp 36.4 C 09/23/24 07:14 Pulse 130 H 09/23/24 13:30 Resp 35 H 09/23/24 13:30 BP 119/46 L 09/23/24 13:30 Pulse Ox 94 09/23/24 13:30 Time Spent Time spent with Patient: 55-74 minutes Time was spent: preparing to see the patient(eg.review tests), obtaining and/or reviewing separately otained hiistory, ordering medications,tests, procedures, referring, communicating with other health career coach, indepentently interpreting results, counseling the patient and care coordination
[2024-09-23] MEDS: Normal Saline 500 ML IV (14:25)
--- NOTE | 2024-09-23 16:06 | W.PC.ACHO ---
Registration Status: Primary Language: Preferred Language: ED Information & Data Chief Complaint RespSymp 09/23/24 07:26 Triage Note Patient complaining of SOB 09/23/24 07:08 and productive cough that started around 0200 this morning Medical / Surgical History (Last Updated 09/23/24 @ 14:38 by Milind Moffett) Subcutaneous mass of back (Last Updated 09/23/24 @ 14:16 by Milind Moffett) S/P appendectomy Most Recent Vital Signs Temperature 36.4 C 09/23/24 07:14 Temperature Source Oral 09/23/24 07:14 Pulse 107 H 09/23/24 15:40 Pulse 108 H 09/23/24 15:40 Respiratory Rate 28 H 09/23/24 15:40 Respiratory Effort Short of Breath 09/23/24 08:54 Respiratory Depth Shallow 09/23/24 08:54 Blood Pressure 121/49 L 09/23/24 15:30 Blood Pressure Mean 68 09/23/24 15:30 Blood Pressure Position Sitting 09/23/24 07:14 Pulse Oximetry 93 09/23/24 15:40 Oxygen Delivery Method Room Air 09/23/24 07:14 Oxygen Flow Rate 0 09/23/24 07:14 Allergies aspirin Allergy (Unverified 09/23/24 07:15) Unknown unknown bee venom protein (honey bee) Allergy (Unverified 09/23/24 07:15) Anaphylaxis Penicillins Allergy (Unverified 09/23/24 07:15) Other (See Comment) patient states unknown reaction Precautions Isolation PUI 09/23/24 07:15 Active Medications Generic Name Dose Route Start Last Admin Trade Name Michaelq PRN Reason Stop Dose Admin Iohexol 60 ml 09/23/24 08:00 09/23/24 07:59 Omnipaque 350 Mg/Ml 100 Ml Btl IJ 10/23/24 23:59 60 ml DIRECTED WILD Administration Sodium Chloride 50 ml 09/23/24 08:00 09/23/24 07:58 Normal Saline - Diluent 50 Ml Vial IJ 50 ml .FOR DI USE WILD Administration IV IV Catheter Type [Left Saline Lock Antecubital] IV Catheter Gauge [Left 20 Antecubital] Diet Orders Category Date Time Status Regular/Normal [DIET] Nutrition 09/23/24 Dinner Active Diagnostics 09/23/24 09/23/24 09/23/24 Range/Units 09:24 08:29 07:35 WBC (4.4-10.8) 10^3/uL RBC (3.93-5.22) 10^6/uL Hgb (11.2-15.7) g/dL Hct (36.0-46.0) % MCV (80-95) fL MCH (27.0-33.0) pg MCHC (32.0-36.0) % RDW (11.7-14.6) % Plt Count (130-400) 10^3/uL MPV (8.0-11.0) fL Immature Gran % Neutrophils % % Band Neutrophils % % Lymphocytes % % Monocytes % % Eosinophils % % Basophils % % Nucleated RBC % (0.0-0.3) % Absolute Neutrophils (1.2-6.7) 10^3/uL Absolute Lymphocytes (1.2-3.4) 10^3/uL Absolute Monocytes (0.1-0.8) 10^3/uL Absolute Eosinophils (0.0-0.7) 10^3/uL Absolute Basophils (0.0-0.2) 10^3/uL RBC Morphology PT (9.1-11.1) sec INR (0.9-1.1) APTT (20.6-30.2) sec Sodium Potassium Chloride Carbon Dioxide Anion Gap BUN Creatinine Est GFR (CKD-EPI 2020) Glucose Calcium Magnesium (1.8-2.4) mg/dL Total Bilirubin AST ALT Alkaline Phosphatase Troponin I 5 (<or=51) ng/L NT-Pro-B Natriuret Pep (<300) pg/mL Total Protein Albumin 2.7 L Procalcitonin < 0.10 ng/mL TSH 0.19 L (0.36-3.74) uIU/mL Free T4 1.75 H (0.76-1.46) ng/dL Urine Color Yellow (Yellow) Urine Clarity Clear (Clear) Urine pH 6.0 (5-8) Ur Specific [place] 1.015 (1.005-1.025) Urine Protein Negative (Neg-Trace) mg/dL Urine Ketones Negative (Negative) mg/dL Urine Blood Trace-lysed H (Negative) Urine Nitrite Negative (Negative) Urine Bilirubin Negative (Negative) Urine Urobilinogen 0.2 (Up to 0.2) mg/dL Ur Leukocyte Esterase Negative (Negative) Urine RBC 0-2 (0-2) HPF Urine WBC 0-2 (0-5) HPF Ur Epithelial Cells Negative (Negative) HPF Urine Crystals Negative (Negative) HPF Urine Bacteria Negative (Negative) HPF Urine Casts Negative (Negative) LPF Urine Mucus Negative (Negative) Ur Culture Indicated? No Urine Glucose Negative (Negative) mg/dL COVID-19 Source SARS-CoV-2 (PCR) (Negative) Influenza Type A (PCR) (Negative) Influenza Type B (PCR) (Negative) RSV (PCR) (Negative) 09/23/24 09/23/24 09/23/24 Range/Units 07:35 07:35 07:35 WBC (4.4-10.8) 10^3/uL RBC (3.93-5.22) 10^6/uL Hgb (11.2-15.7) g/dL Hct (36.0-46.0) % MCV (80-95) fL MCH (27.0-33.0) pg MCHC (32.0-36.0) % RDW (11.7-14.6) % Plt Count (130-400) 10^3/uL MPV (8.0-11.0) fL Immature Gran % Neutrophils % % Band Neutrophils % % Lymphocytes % % Monocytes % % Eosinophils % % Basophils % % Nucleated RBC % (0.0-0.3) % Absolute Neutrophils (1.2-6.7) 10^3/uL Absolute Lymphocytes (1.2-3.4) 10^3/uL Absolute Monocytes (0.1-0.8) 10^3/uL Absolute Eosinophils (0.0-0.7) 10^3/uL Absolute Basophils (0.0-0.2) 10^3/uL RBC Morphology PT (9.1-11.1) sec INR (0.9-1.1) APTT (20.6-30.2) sec Sodium Potassium Chloride Carbon Dioxide Anion Gap BUN Creatinine Est GFR (CKD-EPI 2020) Glucose Calcium Magnesium (1.8-2.4) mg/dL Total Bilirubin AST ALT 28 Alkaline Phosphatase 71 Cancelled Troponin I 5 (<or=51) ng/L NT-Pro-B Natriuret Pep 373 H (<300) pg/mL Total Protein 6.8 Cancelled Albumin Cancelled Procalcitonin ng/mL TSH (0.36-3.74) uIU/mL Free T4 (0.76-1.46) ng/dL Urine Color (Yellow) Urine Clarity (Clear) Urine pH (5-8) Ur Specific [place] (1.005-1.025) Urine Protein (Neg-Trace) mg/dL Urine Ketones (Negative) mg/dL Urine Blood (Negative) Urine Nitrite (Negative) Urine Bilirubin (Negative) Urine Urobilinogen (Up to 0.2) mg/dL Ur Leukocyte Esterase (Negative) Urine RBC (0-2) HPF Urine WBC (0-5) HPF Ur Epithelial Cells (Negative) HPF Urine Crystals (Negative) HPF Urine Bacteria (Negative) HPF Urine Casts (Negative) LPF Urine Mucus (Negative) Ur Culture Indicated? Urine Glucose (Negative) mg/dL COVID-19 Source SARS-CoV-2 (PCR) (Negative) Influenza Type A (PCR) (Negative) Influenza Type B (PCR) (Negative) RSV (PCR) (Negative) 09/23/24 09/23/24 09/23/24 Range/Units 07:35 07:35 07:35 WBC (4.4-10.8) 10^3/uL RBC (3.93-5.22) 10^6/uL Hgb (11.2-15.7) g/dL Hct (36.0-46.0) % MCV (80-95) fL MCH (27.0-33.0) pg MCHC (32.0-36.0) % RDW (11.7-14.6) % Plt Count (130-400) 10^3/uL MPV (8.0-11.0) fL Immature Gran % Neutrophils % % Band Neutrophils % % Lymphocytes % % Monocytes % % Eosinophils % % Basophils % % Nucleated RBC % (0.0-0.3) % Absolute Neutrophils (1.2-6.7) 10^3/uL Absolute Lymphocytes (1.2-3.4) 10^3/uL Absolute Monocytes (0.1-0.8) 10^3/uL Absolute Eosinophils (0.0-0.7) 10^3/uL Absolute Basophils (0.0-0.2) 10^3/uL RBC Morphology PT (9.1-11.1) sec INR (0.9-1.1) APTT (20.6-30.2) sec Sodium Potassium Chloride Carbon Dioxide Anion Gap BUN Creatinine Est GFR (CKD-EPI 2020) Glucose Calcium 8.7 Magnesium 2.0 (1.8-2.4) mg/dL Total Bilirubin 0.52 Cancelled AST 18 Cancelled ALT Cancelled Alkaline Phosphatase Troponin I (<or=51) ng/L NT-Pro-B Natriuret Pep (<300) pg/mL Total Protein Albumin Procalcitonin ng/mL TSH (0.36-3.74) uIU/mL Free T4 (0.76-1.46) ng/dL Urine Color (Yellow) Urine Clarity (Clear) Urine pH (5-8) Ur Specific [place] (1.005-1.025) Urine Protein (Neg-Trace) mg/dL Urine Ketones (Negative) mg/dL Urine Blood (Negative) Urine Nitrite (Negative) Urine Bilirubin (Negative) Urine Urobilinogen (Up to 0.2) mg/dL Ur Leukocyte Esterase (Negative) Urine RBC (0-2) HPF Urine WBC (0-5) HPF Ur Epithelial Cells (Negative) HPF Urine Crystals (Negative) HPF Urine Bacteria (Negative) HPF Urine Casts (Negative) LPF Urine Mucus (Negative) Ur Culture Indicated? Urine Glucose (Negative) mg/dL COVID-19 Source SARS-CoV-2 (PCR) (Negative) Influenza Type A (PCR) (Negative) Influenza Type B (PCR) (Negative) RSV (PCR) (Negative) 09/23/24 09/23/24 09/23/24 Range/Units 07:35 07:35 07:35 WBC (4.4-10.8) 10^3/uL RBC (3.93-5.22) 10^6/uL Hgb (11.2-15.7) g/dL Hct (36.0-46.0) % MCV (80-95) fL MCH (27.0-33.0) pg MCHC (32.0-36.0) % RDW (11.7-14.6) % Plt Count (130-400) 10^3/uL MPV (8.0-11.0) fL Immature Gran % Neutrophils % % Band Neutrophils % % Lymphocytes % % Monocytes % % Eosinophils % % Basophils % % Nucleated RBC % (0.0-0.3) % Absolute Neutrophils (1.2-6.7) 10^3/uL Absolute Lymphocytes (1.2-3.4) 10^3/uL Absolute Monocytes (0.1-0.8) 10^3/uL Absolute Eosinophils (0.0-0.7) 10^3/uL Absolute Basophils (0.0-0.2) 10^3/uL RBC Morphology PT (9.1-11.1) sec INR (0.9-1.1) APTT (20.6-30.2) sec Sodium Potassium Chloride Carbon Dioxide Anion Gap BUN Creatinine 0.8 Est GFR (CKD-EPI 2020) 73.98 Cancelled Glucose 118 H Cancelled Calcium Cancelled Magnesium (1.8-2.4) mg/dL Total Bilirubin AST ALT Alkaline Phosphatase Troponin I (<or=51) ng/L NT-Pro-B Natriuret Pep (<300) pg/mL Total Protein Albumin Procalcitonin ng/mL TSH (0.36-3.74) uIU/mL Free T4 (0.76-1.46) ng/dL Urine Color (Yellow) Urine Clarity (Clear) Urine pH (5-8) Ur Specific [place] (1.005-1.025) Urine Protein (Neg-Trace) mg/dL Urine Ketones (Negative) mg/dL Urine Blood (Negative) Urine Nitrite (Negative) Urine Bilirubin (Negative) Urine Urobilinogen (Up to 0.2) mg/dL Ur Leukocyte Esterase (Negative) Urine RBC (0-2) HPF Urine WBC (0-5) HPF Ur Epithelial Cells (Negative) HPF Urine Crystals (Negative) HPF Urine Bacteria (Negative) HPF Urine Casts (Negative) LPF Urine Mucus (Negative) Ur Culture Indicated? Urine Glucose (Negative) mg/dL COVID-19 Source SARS-CoV-2 (PCR) (Negative) Influenza Type A (PCR) (Negative) Influenza Type B (PCR) (Negative) RSV (PCR) (Negative) 09/23/24 09/23/24 09/23/24 Range/Units 07:35 07:35 07:35 WBC (4.4-10.8) 10^3/uL RBC (3.93-5.22) 10^6/uL Hgb (11.2-15.7) g/dL Hct (36.0-46.0) % MCV (80-95) fL MCH (27.0-33.0) pg MCHC (32.0-36.0) % RDW (11.7-14.6) % Plt Count (130-400) 10^3/uL MPV (8.0-11.0) fL Immature Gran % Neutrophils % % Band Neutrophils % % Lymphocytes % % Monocytes % % Eosinophils % % Basophils % % Nucleated RBC % (0.0-0.3) % Absolute Neutrophils (1.2-6.7) 10^3/uL Absolute Lymphocytes (1.2-3.4) 10^3/uL Absolute Monocytes (0.1-0.8) 10^3/uL Absolute Eosinophils (0.0-0.7) 10^3/uL Absolute Basophils (0.0-0.2) 10^3/uL RBC Morphology PT (9.1-11.1) sec INR (0.9-1.1) APTT (20.6-30.2) sec Sodium Potassium Chloride Carbon Dioxide 32.1 H Anion Gap 2.9 L Cancelled BUN 13 Cancelled Creatinine Cancelled Est GFR (CKD-EPI 2020) Glucose Calcium Magnesium (1.8-2.4) mg/dL Total Bilirubin AST ALT Alkaline Phosphatase Troponin I (<or=51) ng/L NT-Pro-B Natriuret Pep (<300) pg/mL Total Protein Albumin Procalcitonin ng/mL TSH (0.36-3.74) uIU/mL Free T4 (0.76-1.46) ng/dL Urine Color (Yellow) Urine Clarity (Clear) Urine pH (5-8) Ur Specific [place] (1.005-1.025) Urine Protein (Neg-Trace) mg/dL Urine Ketones (Negative) mg/dL Urine Blood (Negative) Urine Nitrite (Negative) Urine Bilirubin (Negative) Urine Urobilinogen (Up to 0.2) mg/dL Ur Leukocyte Esterase (Negative) Urine RBC (0-2) HPF Urine WBC (0-5) HPF Ur Epithelial Cells (Negative) HPF Urine Crystals (Negative) HPF Urine Bacteria (Negative) HPF Urine Casts (Negative) LPF Urine Mucus (Negative) Ur Culture Indicated? Urine Glucose (Negative) mg/dL COVID-19 Source SARS-CoV-2 (PCR) (Negative) Influenza Type A (PCR) (Negative) Influenza Type B (PCR) (Negative) RSV (PCR) (Negative) 09/23/24 09/23/24 09/23/24 Range/Units 07:35 07:35 07:35 WBC (4.4-10.8) 10^3/uL RBC (3.93-5.22) 10^6/uL Hgb (11.2-15.7) g/dL Hct (36.0-46.0) % MCV (80-95) fL MCH (27.0-33.0) pg MCHC (32.0-36.0) % RDW (11.7-14.6) % Plt Count (130-400) 10^3/uL MPV (8.0-11.0) fL Immature Gran % Neutrophils % % Band Neutrophils % % Lymphocytes % % Monocytes % % Eosinophils % % Basophils % % Nucleated RBC % (0.0-0.3) % Absolute Neutrophils (1.2-6.7) 10^3/uL Absolute Lymphocytes (1.2-3.4) 10^3/uL Absolute Monocytes (0.1-0.8) 10^3/uL Absolute Eosinophils (0.0-0.7) 10^3/uL Absolute Basophils (0.0-0.2) 10^3/uL RBC Morphology PT (9.1-11.1) sec INR (0.9-1.1) APTT (20.6-30.2) sec Sodium 138 Potassium 4.0 Cancelled Chloride 103 Cancelled Carbon Dioxide Cancelled Anion Gap BUN Creatinine Est GFR (CKD-EPI 2020) Glucose Calcium Magnesium (1.8-2.4) mg/dL Total Bilirubin AST ALT Alkaline Phosphatase Troponin I (<or=51) ng/L NT-Pro-B Natriuret Pep (<300) pg/mL Total Protein Albumin Procalcitonin ng/mL TSH (0.36-3.74) uIU/mL Free T4 (0.76-1.46) ng/dL Urine Color (Yellow) Urine Clarity (Clear) Urine pH (5-8) Ur Specific [place] (1.005-1.025) Urine Protein (Neg-Trace) mg/dL Urine Ketones (Negative) mg/dL Urine Blood (Negative) Urine Nitrite (Negative) Urine Bilirubin (Negative) Urine Urobilinogen (Up to 0.2) mg/dL Ur Leukocyte Esterase (Negative) Urine RBC (0-2) HPF Urine WBC (0-5) HPF Ur Epithelial Cells (Negative) HPF Urine Crystals (Negative) HPF Urine Bacteria (Negative) HPF Urine Casts (Negative) LPF Urine Mucus (Negative) Ur Culture Indicated? Urine Glucose (Negative) mg/dL COVID-19 Source SARS-CoV-2 (PCR) (Negative) Influenza Type A (PCR) (Negative) Influenza Type B (PCR) (Negative) RSV (PCR) (Negative) 09/23/24 09/23/24 Range/Units 07:35 07:16 WBC 23.35 H (4.4-10.8) 10^3/uL RBC 3.97 (3.93-5.22) 10^6/uL Hgb 13.0 (11.2-15.7) g/dL Hct 38.9 (36.0-46.0) % MCV 98 H (80-95) fL MCH 32.7 (27.0-33.0) pg MCHC 33.4 (32.0-36.0) % RDW 12.2 (11.7-14.6) % Plt Count 251 (130-400) 10^3/uL MPV 10.8 (8.0-11.0) fL Immature Gran % See Differential Neutrophils % 90.0 % Band Neutrophils % 2 % Lymphocytes % 5.0 % Monocytes % 3.0 % Eosinophils % 0.0 % Basophils % 0.0 % Nucleated RBC % 0.0 (0.0-0.3) % Absolute Neutrophils 21.48 H (1.2-6.7) 10^3/uL Absolute Lymphocytes 1.17 L (1.2-3.4) 10^3/uL Absolute Monocytes 0.70 (0.1-0.8) 10^3/uL Absolute Eosinophils 0.00 (0.0-0.7) 10^3/uL Absolute Basophils 0.00 (0.0-0.2) 10^3/uL RBC Morphology Normal PT 9.8 (9.1-11.1) sec INR 1.0 (0.9-1.1) APTT 21.5 (20.6-30.2) sec Sodium Cancelled Potassium Chloride Carbon Dioxide Anion Gap BUN Creatinine Est GFR (CKD-EPI 2020) Glucose Calcium Magnesium (1.8-2.4) mg/dL Total Bilirubin AST ALT Alkaline Phosphatase Troponin I (<or=51) ng/L NT-Pro-B Natriuret Pep (<300) pg/mL Total Protein Albumin Procalcitonin ng/mL TSH (0.36-3.74) uIU/mL Free T4 (0.76-1.46) ng/dL Urine Color (Yellow) Urine Clarity (Clear) Urine pH (5-8) Ur Specific [place] (1.005-1.025) Urine Protein (Neg-Trace) mg/dL Urine Ketones (Negative) mg/dL Urine Blood (Negative) Urine Nitrite (Negative) Urine Bilirubin (Negative) Urine Urobilinogen (Up to 0.2) mg/dL Ur Leukocyte Esterase (Negative) Urine RBC (0-2) HPF Urine WBC (0-5) HPF Ur Epithelial Cells (Negative) HPF Urine Crystals (Negative) HPF Urine Bacteria (Negative) HPF Urine Casts (Negative) LPF Urine Mucus (Negative) Ur Culture Indicated? Urine Glucose (Negative) mg/dL COVID-19 Source Nasopharynx SARS-CoV-2 (PCR) Positive A (Negative) Influenza Type A (PCR) Negative (Negative) Influenza Type B (PCR) Negative (Negative) RSV (PCR) Negative (Negative) 09/23/24 07:35 Blood Culture - Pending Blood 09/23/24 07:01 Blood Culture - Pending Blood Intake and Output - 24 Hour Total 09/23/24 06:56 thru 09/23/24 11:14 Intake Total 400 Balance 400 Weight 45.9 kg Intake: IV 400 Problems (Last Updated 09/23/24 @ 14:38 by Milind Moffett) Smoker (Acute) Tachycardia (Acute) DVT prophylaxis (Acute) Hyperthyroidism (Chronic) COPD exacerbation (Acute) COVID (Acute) v v v v v v v v v Sending and/or Receiving Nurses: Please use comment section below to note any information pertinent to the patient hand-off not included above. Information / Comments: Report received from: brandon in ED at 1606
[2024-09-23] MEDS: LORazepam 0.5 MG TAB PO (17:35)
[2024-09-23] MEDS: Normal Saline Flush 10 ML SYR IVP ×2 (18:11→20:54)
[2024-09-23] MEDS: Metoprolol 50 MG TAB PO ×2 (18:14→20:54)
[2024-09-23] MEDS: Melatonin 3 MG TAB PO (20:54)
[2024-09-23] MEDS: Enoxaparin 40 MG/0.4 ML SYR SC (20:54)
[2024-09-23] MEDS: methIMAzole 5 MG TAB 10 MG PO (22:47)
[2024-09-24] MEDS: POTASSIUM CHLORIDE/D5-0.45NACL 1,000 ML 75 MEQ IV (04:52)
[2024-09-24] MEDS: LORazepam 0.5 MG TAB PO (04:52)
[2024-09-24 06:16] VITALS: PULSE 90; RESP 2; RESP 22; RESP 9; O2SAT 92
[2024-09-24] MEDS: Levalbuterol 1.25 MG/3 ML UPD VIAL UPD (06:16)
[2024-09-24 06:20] VITALS: PULSE 90; RESP 18; RESP 2; RESP 9; O2SAT 92
[2024-09-24 06:40] LABS: Abs Immature Grans 0.14 10^3/uL (0.0-0.06); Absolute Eosinophil Count 0.07 10^3/uL (0.0-0.7); Absolute Monocyte Count 1.24 10^3/uL (0.1-0.8); Absolute Neutrophil Count 21.92 10^3/uL (1.2-6.7); Basophils % 0.3 %; Eosinophils % 0.3 %; HCT 34.4 % (36.0-46.0); HGB 11.7 g/dL (11.2-15.7); Immature Grans % 0.6 %; Lymphocytes % 5.4 %; MCH 32.9 pg (27.0-33.0); MCV 97 fL (80-95); MPV 10.9 fL (8.0-11.0); Neutrophils % 88.4 %; Platelet Count 228 10^3/uL (130-400); RBC 3.56 10^6/uL (3.93-5.22); RDW 12.5 % (11.7-14.6); RDW-SD 44.4 fL
[2024-09-24 06:46] LABS: Absolute Basophil Count 0.07 10^3/uL (0.0-0.2); Absolute Lymphocyte Count 1.34 10^3/uL (1.2-3.4)
[2024-09-24 06:49] LABS: Diff Comment Diff Reviewed; RBC Morphology Normal
[2024-09-24 07:52] VITALS: BP 152/69; PULSE 95; RESP 19; TEMP 36.6; O2SAT 92
--- NOTE | 2024-09-24 09:06 | PDOC.CMIN ---
Date of service: 09/24/24 Time of Service: 09:06 Care Management Initial Assmt Initial Assessment Reason for Hospitalization: COPD Exacerbation Functional Status/Living Situation Patient Presentation: Julia was sitting up in bed when CM met with her. She was alert and oriented and easily engaged with CM. Julia was admitted with COPD. She was not wearing oxygen at the time of the visit and stated that she does not use it at home. Julia lives in a single family home in [place] with her son Shiva and his 2 adult children. Shiva's son has severe ADHD and cannot work and his daughter has hypothyroidism with many associated issues including her eyes and chronic back pain. She is unable to work as well. Julia did state that her grandchildren are very helpful at home and care for the animals (2 cats and a dog) and help with groceries, housework etc. Arlen is independent with ADLs but explained that she uses disposable cleaning cloths for bathing and dry shampoo for her hair as she is unable to safely enter or exit her tub. She uses a walker for ambulatory assistance all the time. 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 Town of Residence: [place] Resides with: Child (son Shiva) Significant Other/Family: Local Employment Status: Retired Instrumental Activities of Daily Living (ADLs): Independent Medications Medication Management: No Issues/Barriers identified Physical Functioning/Mobility Assistive Device: walker Advance Directives Advance Directives: Do you have an Advance Directive: Y 04/30/22 20:58 AD On File at [facility]: N 04/30/22 21:19 Date Asked 09/21/24 09/21/24 08:35 AD Date Reviewed 09/23/24 09/23/24 15:33 COLST On File at [facility] COLST Date Scanned Code Status Resuscitation Status Full Code Portal Pt does not currently have a portal and education provided: Yes Insurance Coverage/Financial Issues Insurance: BC/BS Medicare Advantage Care Team Visit Care Team Role Provider Type Dilma Dubose Primary Care Provider PHYSICIANS ASSISTANT Marc Echols MD Emergency Provider [facility] STAFF PHYSICIAN Milind Moffett Admit Provider [facility] STAFF PHYSICIAN Attending Provider Discharge Potential Discharge Needs: PCP F/U Appt Anticipated Barriers to Discharge: None Identified Patient/Family Education Needs: Review discharge instructions, discuss Ask Me Three Transportation: Private vehicle Plan: Anticipate Julia will be discharged home, possibly with new home health services, when medically cleared. She will follow up with her PCP and plan of care and transport with family. CM will follow. Social Determinants of Health Screening Social Determinants of Health last assessed: 09/24/24 Will the Patient Participate in the Screening?: Yes Do you worry about having a steady place to live?: no Problems where you live: no known problems In the past 12 months, have you had to go without electric, gas, oil or water in your home?: no Have you or anyone in your house had to go without enough food to eat?: no Has lack of transportation kept you from medical appointments or from doing things needed for daily living?: no Has anyone in your life made you feel unsafe or unsupported?: no How hard is it for you to pay for the very basics like food, housing, medical care, and heating? Would you say it is:: Not hard at all Do you want help finding or keeping work or a job?: I do not need or want help If for any reason you need help with day-to-day activities such as bathing, preparing meals, shopping, managing finances, etc., do you get the help you need?: I get all the help I need How often do you feel lonely or isolated from those around you?: Never Do you speak a language other than Montene[place] at home?: No PFSH All Active Problems (Updated 09/24/24 @ 11:29 by Milind Moffett) Insomnia (Acute) Community acquired pneumonia (Acute) Smoker (Acute) Tachycardia (Acute) DVT prophylaxis (Acute) Hyperthyroidism (Chronic) COPD exacerbation (Acute) Shortness of breath (Acute) Acute UTI (Acute) Cough (Acute) Fatigue (Acute) Anorexia (Acute) COVID (Acute) Hyperlipidemia (Acute) Hypertension (Chronic) Medical History (Updated 09/24/24 @ 11:29 by Milind Moffett) 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
[2024-09-24] MEDS: Acetaminophen 325 MG TAB PO (09:17)
[2024-09-24] MEDS: DOXYCYCLINE 100 MG in Normal Saline 100 ML IVPB ×2 (09:18→20:48)
[2024-09-24] MEDS: methIMAzole 5 MG TAB 10 MG PO ×3 (09:18→20:06)
[2024-09-24] MEDS: Normal Saline Flush 10 ML SYR IVP ×3 (09:18→20:48)
[2024-09-24] MEDS: Lisinopril 5 MG TAB 2.5 MG PO (09:18)
[2024-09-24] MEDS: Metoprolol 50 MG TAB PO ×2 (09:19→20:08)
[2024-09-24] MEDS: Multivitamin TAB 1 TAB PO (09:19)
[2024-09-24] MEDS: predniSONE 20 MG TAB 40 MG PO (09:19)
--- NOTE | 2024-09-24 11:17 | W.PM.PROGNOT ---
Date of Service Date of service: 09/24/24 Time of Service: 11:17 Assessment and Plan Assessment and plan (1) COPD exacerbation: Status: Acute Assessment and plan: On admission hypoxic but very short of breath. In respiratory distress, so I agree with observing in the hospital She was not aware of COPD diagnosis but emphysema on CT. s/p dexamethasone in ED, now on oral prednisone a/w focal pneumonia, see below. Levalbuterol given tachycardia. Can try low dose lorazepam for anxiety. (2) Community acquired pneumonia: Status: Acute Assessment and plan: Assymetric infiltrate on CT. WBC elevated but procalcitonin not elevated. Given focal imaging and WBC along with sputum/cough will treat as pneumonia. s/p levofloxacin in ED. PCN allergy non-specific childhood allergy, will proceed with ceftriaxone along with doxy. Ambulate with PT to help keep lungs open. (3) COVID: Status: Acute Assessment and plan: s/p COVID diagnosed 09/11, treated with paxlovid ending 09/17. PCR still positive on admission but not hypoxic. Not re-treated with remdesavir. 13 days out so precautions not continued. (4) Hyperthyroidism: Status: Chronic Assessment and plan: uncontrolled off methimazole therapy. She seems to have missed her morning metoprolol as well. Resume both. On initial 10mg TID dosing of methimazole, she was down to just 2.5mg daily before stopping methimazole last year. Will give a lower dose upon discharge. (5) Tachycardia: Status: Acute Assessment and plan: Sinus tachycardia related to some mild dehydration, bronchodilators, and uncontrolled hyperthyroidism. Given 1000 ml of fluids in ED, on 75ml/hr overnight. Drinking now, fluids stopped. Resumed metoprolol, using levalbuterol, treating thyoid. Tachycardia has resolved. (6) Smoker: Status: Acute Assessment and plan: nicotene prn, encouraged cessation. (7) Subcutaneous mass of back: Assessment and plan: She did not know what this is, but this was present on CT scan in 2021, so unlikely malignant. F/u PCP. (8) Ectatic thoracic aorta: Assessment and plan: outpatient f/u (9) Insomnia: Status: Acute Assessment and plan: chronic. Also appetite not great chronically. Try mirtazipine. (10) DVT prophylaxis: Status: Acute Assessment and plan: LMWH Subjective Subjective Patient reports: no new complaints and tolerating a regular diet; denies diarrhea, nausea, vomiting or fever Interval history since last seen: 24 hr: no events She states she is tired and didn't sleep well, states this is a chronic issue. Sitting in chair even takes energy out of her. She is still coughing, but breathing a little better. No chest pain. At home she doesn't walk a lot but gets around with a walker. Exam Narrative Exam Narrative: GEN: Alert and oriented, No acute distress at rest. LUNGS: No longer tachypneic mid increase WOB but speaking in full sentences. No rales or wheeze, some prolonged expiration. CV: RRR with no murmurs, gallops, or rubs. ABD: active bowel sounds, soft, nontender and nondistended. No masses. EXT: no cyanosis, clubbing, or edema Objective Last Vital Signs Temp 36.6 C 09/24/24 07:52 Pulse 95 H 09/24/24 07:52 Resp 19 09/24/24 07:52 BP 152/69 H 09/24/24 07:52 Pulse Ox 92 09/24/24 07:52 Laboratory Results - last 24 hr 09/24/24 06:20 WBC 24.80 H RBC 3.56 L Hgb 11.7 Hct 34.4 L MCV 97 H MCH 32.9 MCHC 34.0 RDW 12.5 Plt Count 228 MPV 10.9 Immature Gran % 0.6 Neutrophils % 88.4 Lymphocytes % 5.4 Monocytes % 5.0 Eosinophils % 0.3 Basophils % 0.3 Nucleated RBC % 0.0 Absolute Neutrophils 21.92 H Absolute Lymphocytes 1.34 Absolute Monocytes 1.24 H Absolute Eosinophils 0.07 Absolute Basophils 0.07 RBC Morphology Normal Time Spent with Patient Time Spent with Patient: 35-49 minutes Time was spent: preparing to see the patient(eg.review tests), obtaining and/or reviewing separately otained hiistory, ordering medications,tests, procedures, referring, communicating with other health career and guidance counselor, indepentently interpreting results, counseling the patient and care coordination
[2024-09-24] MEDS: cefTRIAXone 1 GM/50 ML BAG IVPB (12:48)
--- NOTE | 2024-09-24 13:51 | IN_ITS ---
PT Notes Visit Reasons: COPD exacerbation Physical Therapy Inpatient Initial Evaluation Date: 09/24/2024 Referring Doctor: Milind Moffett MD PT Orders: PT CONSULT: SAfety consult for D/C. Pneumonia/COPD, recent COVID, weak Precautions: Fall. Standard. Activity as tolerated. Recent COVID but has been off precautions as of today. Patient Profile/Admitting Diagnosis: Arlen is an 79-year-old female admitted for management of COPD exacerbation, COVID and has had Paxlovid that ended on 09/17/2024 still testing positive on the PCR, hypothyroidism, and tachycardia. PMHX: All Active Problems (Updated 09/23/24 @ 17:15 by Milind Moffett) Smoker (Acute) Tachycardia (Acute) DVT prophylaxis (Acute) Hyperthyroidism (Chronic) COPD exacerbation (Acute) Shortness of breath (Acute) Acute UTI (Acute) Cough (Acute) Fatigue (Acute) Anorexia (Acute) COVID (Acute) Hyperlipidemia (Acute) Hypertension (Chronic) Medical History (Updated 09/23/24 @ 17:15 by Milind Moffett) Ectatic thoracic aorta 4cmSubcutaneous mass of back Surgical History S/P appendectomy Social History/Home Situation: Lives with son, grandson, and granddaughter in a priavte home with one step to enter through the garage. Patient is modified independent with 4WW at home. Family takes care of meals, grocery shopping, and laundry for patient. passed 12 yars ago. Equipment Owned/DME: 4WW Subjective: Just got back from chair to the bed and is tired but is willing to walk using the walker for mobility assessment and strength testing. Objective: General Observation: Subcutaneous mass on back. Thoracic kyphosis. Mental Status: Alert and oriented as to person, place, time, and purpose. Able to pay attention, focus, and respond appropriately. Pain: None reported throughout session Vital Signs: Closely monitored by nursing staff ROM: Right Upper Extremity: Shoulder Flexion allows up to bout 90 degrees only. Shoulder abduction allows up to bout 60 degrees only. Elbow flexion WFL. Wrist flexion WFL. Functional opening and closing of hand WFL. Left Upper Extremity: Shoulder Flexion allows up to bout 90 degrees only. Shoulder abduction allows up to bout 60 degrees only. Elbow flexion WFL. Wrist flexion WFL. Functional opening and closing of hand WFL. Right Lower Extremity: Hip flexion WFL. Hip abduction WFL. Knee flexion WFL. Ankle dorsiflexion WFL. Ankle plantarflexion WFL. Left Lower Extremity: Hip in external rotation and abduction, unable to actively internal rotate at the hip. Hip flexion allows up to 90 degrees. Knee flexion 30 degrees to 90 degrees. Ankle dorsiflexion absent. Ankle plantarflexion WFL. Strength: Right Upper Extremity: Shoulder flexors 3-/5. Shoulder abductors 3-/5. Elbow flexors 4-/5. Elbow extensors 4-/5. Audio Visual Arts Director strong. Left Upper Extremity: Shoulder flexors 3-/5. Shoulder abductors 3-/5. Elbow flexors 4-/5. Elbow extensors 4-/5. Audio Visual Arts Director strong. Right Lower Extremity: Hip flexors 4-/5. Hip abductors 4-/5. Knee flexors 4-/5. Knee extensors 3+/5. Ankle dorsiflexors 4-/5. Ankle plantarflexors 4-/5. Left Lower Extremity: Hip flexors 3-/5. Hip abductors 3-/5. Knee flexors 3-/5. Knee extensors 3-/5. Ankle dorsiflexors 2-/5. Ankle plantarflexors 4-/5. Bed Mobility/Transfers: Minimal cueing provided for use of B hands as needed for support, movement sequence, AD management, and posture to reduce fall risk and minimize pain report Supine to sit stand by assist with HOB at 30 degrees Sit to supine stand by assist Sit to stand contact guard assist with FWW Stand to sit contact guard assist with FWW Gait: Facilitated safe and correct performance of level surface ambulation covering a distance of 50 feet using front wheeled walker with contact-guard assist assist provided. Left hip in external rotation throughout with to drag L LE forward with advancement made possible by hiking hip on L. Patient indicated that she has walked like this for the past two years since she fell. Balance: Static Sitting: Normal Dynamic Sitting: Good Static Standing: Fair Dynamic Standing: Fair Special Tests: Mobility Limitations Standardized Measure [facility] AM-PAC 6 clicks Basic Mobility Inpatient Short Form: Raw Score: 20 CMS Score: 36% deficit Informed Consent/Education: Patient was instructed in purpose of PT consult and plan of care. Agreeable to proceed with established PT POC to achieve personal goals. Assessment: Has had paxlovid for COVID from 09/11/2024 through 09/17/2024. Off precautions as of today. Chronic gait deviation and thoracic kyphosis, along with weakness from COPD exacerbation, increase risk for falls. Patient presents with clinical signs and symptoms consistent with current/admitting diagnoses that have resulted to mobility limitations, gait instability, generalized weakness, and overall ADL decline as demonstrated by the following impairment level findings: 1. Decreased strength to B UE/LE major muscle groups 2. Impaired sitting/standing balance 3. Impaired activity tolerance 4. Limitation of joint range of motion in R hip 5. Fatigue 6. Swelling in L LE Impairments are contributing to the following functional limitations: 1. Decline in bed mobility skills 2. Decline in transfer skills 3. Difficulty with ambulation without assistive device and physical assistance 4. Increased completion time for mobility ADL performance 5. Increased risk for falls 6. Difficulty with managing steps alone safely Patient is assessed as a 86226 moderate complexity based on the following: History: 79-year-old female with past medical history as indicated above Examination: Demonstrable impairment in strength, balance, and mobility level with underlying impairments and functional limitations as exhibited above as well as deficit score of 36% utilizing the [facility] Mobility Inpatient Short Form Presentation: Evolving Decision Makin moderate complexity Goals: Goals X1 week 1. Supine-Sit independent 2. Sit-Supine independent 3. Sit-Stand independent 4. Stand-Sit independent with FWW 5. Bed-Chair independent with FWW 6. Chair-Bed independent with FWW 7. Independent gait on level surface with use of FWW for at least 300 feet without report of pain nor dyspnea 8. Independent stair negotiation while holding onto B rails for at least 1 step without report of pain nor dyspnea 9. Independent with home exercise program 10. Good static and dynamic standing balance/tolerance Plan of Care/Treatment Plan: 1-2x/day, 7 days/week x 1 week. Plan of care has been reviewed with the PONY CYLINDER PRESS OPERATOR providing the service under Physical Therapy direction. Initiate Physical Therapy intervention for pain management as needed, strengthening, bed mobility, transfers, gait, stairs, balance training, and use of assistive device. DISCHARGE RECOMMENDATIONS: [] Home with no services [] [X] Home with services. Patient will benefit from home health PT services in order to progress mobility level using least restrictive assistive ambulatory device, assess home safety, identify additional equipment needs, and establish a functional maintenance program that will increase ability of patient to remain at home. [] Home with outpatient PT [] [] SNF for continued rehabilitation [] [] Care Home Care [] [] SNF versus LTC based on ability to participate and progress [] TREATMENT CODE/TIME: 52401 x 27 minutes (13:51?14:18). Thank you for the opportunity to participate in the care of this patient. Violetta Jovel PT, DPT, CLT [facility] [place], [place]
[2024-09-24 14:50] VITALS: O2SAT 90
[2024-09-24] MEDS: Ipratropium/Albuterol 4 GM 120 PUFF INH IH ×2 (15:12→21:06)
[2024-09-24 15:57] VITALS: BP 130/50; PULSE 73; RESP 18; TEMP 36.6; O2SAT 92
[2024-09-24 20:01] VITALS: BP 152/63; PULSE 93; RESP 20; TEMP 37; O2SAT 96
[2024-09-24] MEDS: Melatonin 3 MG TAB PO (20:08)
[2024-09-24] MEDS: Mirtazapine 15 MG TAB 7.5 MG PO (20:08)
[2024-09-24] MEDS: Enoxaparin 40 MG/0.4 ML SYR SC (22:08)
[2024-09-25] VITALS (7 sets, daily range): BP systolic 117–170; BP diastolic 63–72; PULSE 64–100; RESP 3–25; TEMP 36.7–37; O2SAT 93–96
[2024-09-25] MEDS: Levalbuterol 1.25 MG/3 ML UPD VIAL UPD (07:03)
--- NOTE | 2024-09-25 09:09 | CMPROGNOTE_ITS ---
Date of service: 09/25/24 Time of Service: 09:09 Care Management Progress Note Progress Note Text Progress Note Text: Julia was sitting up on the side of the bed when CM met with her. She informed CM that she was not having a very good day today. She stated that she had gotten a pain in her left foot from an old injury and needed to walk it out. She has no appetite and her breathing seems labored however her oxygen saturation has been in the mid 90s on room air. Julia also informed CM that she lost her IV access today. She shared that she has terrible veins and it is difficult for anyone to get blood or start an IV. She extended her arm for CM to see the discoloration from repeated attempts. She is currently refusing to have another IV inserted and nursing has requested that her antibiotics be changed to oral. Discharge Potential Discharge Needs: PCP F/U Appt Anticipated Barriers to Discharge: None Identified Patient/Family Education Needs: Review discharge instructions, discuss Ask Me Three Transportation: Private vehicle Plan: Anticipate Julia will be discharged home, possibly with new home health services, when medically cleared. She will follow up with her PCP and plan of care and transport with family. CM will follow nad continue to assess for discharge needs. Social Determinants of Health Screening Social Determinants of Health last assessed: 09/25/24 Will the Patient Participate in the Screening?: Yes Do you worry about having a steady place to live?: no Problems where you live: no known problems In the past 12 months, have you had to go without electric, gas, oil or water in your home?: no Have you or anyone in your house had to go without enough food to eat?: no Has lack of transportation kept you from medical appointments or from doing things needed for daily living?: no Has anyone in your life made you feel unsafe or unsupported?: no How hard is it for you to pay for the very basics like food, housing, medical care, and heating? Would you say it is:: Not hard at all Do you want help finding or keeping work or a job?: I do not need or want help If for any reason you need help with day-to-day activities such as bathing, preparing meals, shopping, managing finances, etc., do you get the help you need?: I get all the help I need How often do you feel lonely or isolated from those around you?: Never Do you speak a language other than Faroese at home?: No
[2024-09-25] MEDS: Ipratropium/Albuterol 4 GM 120 PUFF INH IH ×4 (09:17→20:36)
[2024-09-25] MEDS: DOXYCYCLINE 100 MG in Normal Saline 100 ML IVPB (09:29)
[2024-09-25] MEDS: Multivitamin TAB 1 TAB PO (09:29)
[2024-09-25] MEDS: predniSONE 20 MG TAB 40 MG PO (09:29)
[2024-09-25] MEDS: methIMAzole 5 MG TAB 10 MG PO ×3 (09:29→20:23)
[2024-09-25] MEDS: Lisinopril 5 MG TAB 2.5 MG PO (09:29)
[2024-09-25] MEDS: Metoprolol 50 MG TAB PO ×2 (09:29→20:23)
[2024-09-25] MEDS: Normal Saline Flush 10 ML SYR IVP (09:30)
--- NOTE | 2024-09-25 12:14 | PTTR_ITS ---
PT Notes Visit Reasons: COPD Exacerbation Inpatient Physical Therapy Treatment Note [facility] Date: 09/25/2024 PRECAUTIONS:Fall. Standard. Activity as tolerated. Recent COVID but has been off precautions as of 09/24/2024. SUBJECTIVE: Patient reports numbness in right lower extremity especially her great toe while in bed patient later reported this sensation diminished after walking and sitting in chair with lower extremities elevated OBJECTIVE: Elderly female Semi-Cabrera position in bed with IV infusing and left upper extremity? 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 ASSESSMENT: Patient required increased motivation/encouragement this session to participate. She was able to ambulate with FWW within the room limited due to fragile IV access per her nurse. She noted pain at the IV site. PLAN: 1-2x/day, 7 days/week x 1 week. Plan of care has been reviewed with the DOOR FRAME BUILDER providing the service under Physical Therapy direction. Initiate Physical Therapy intervention for strengthening, bed mobility, transfers, gait, stairs, balance training, use of assistive device. TREATMENT CODE/TIME: 33232 x 26 minutes for 2 units/1052?1118 DISCHARGE RECOMMENDATION: Home health PT versus short-term SNF
--- NOTE | 2024-09-25 14:44 | NUR.NOTE ---
Nursing Note: Pt did not receive noon dose of ceftriaxone today d/t losing IV access. Pt refused another IV at this time. Charge nurse ELAN Allen made aware. Dr. Tai made aware. Asked Dr. Tai to switch IV abx to PO. Provider aknowledge this via webex by stating, OK. Awaiting further orders at this time. MAR will reflect noon dose ceftriaxone not given.
--- NOTE | 2024-09-25 16:17 | PT.INTREAT ---
PT Notes Visit Reasons: COPD Exacerbation Inpatient Physical Therapy Treatment Note [facility] Date: 09/25/2024 second session PRECAUTIONS:Fall. Standard. Activity as tolerated. Recent COVID but has been off precautions as of 09/24/2024. SUBJECTIVE: Patient reports she feels better now that her IV is out. Patient reports pain from sitting in chair. OBJECTIVE: Elderly female Semi-Cabrera position in bed with IV infusing and left upper extremity? 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 ASSESSMENT: Patient required increased motivation/encouragement this session to participate. She was able to perform her own toilet hygiene and clothing management with SBA this afternoon. PLAN: 1-2x/day, 7 days/week x 1 week. Plan of care has been reviewed with the PEDIATRIC NEPHROLOGIST providing the service under Physical Therapy direction. Initiate Physical Therapy intervention for strengthening, bed mobility, transfers, gait, stairs, balance training, use of assistive device. TREATMENT CODE/TIME: 55556 x 20 minutes for 1 units/1330?1350 DISCHARGE RECOMMENDATION: Home health PT versus short-term SNF
--- NOTE | 2024-09-25 19:27 | W.PM.PROGNOT ---
Date of Service Date of service: 09/25/24 Time of Service: Assessment and Plan Assessment and plan (1) COPD exacerbation: Status: Acute Assessment and plan: On admission hypoxic but very short of breath. In respiratory distress, so I agree with observing in the hospital She was not aware of COPD diagnosis but emphysema on CT. s/p dexamethasone in ED, now on oral prednisone a/w focal pneumonia, see below. Levalbuterol given tachycardia. Can try low dose lorazepam for anxiety. (2) Community acquired pneumonia: Status: Acute Assessment and plan: Assymetric infiltrate on CT. WBC elevated but procalcitonin not elevated. Given focal imaging and WBC along with sputum/cough will treat as pneumonia. s/p levofloxacin in ED. PCN allergy non-specific childhood allergy, will proceed with ceftriaxone along with doxy. Ambulate with PT to help keep lungs open. pt lost iv access will change to levaquin (3) COVID: Status: Acute Assessment and plan: s/p COVID diagnosed 09/11, treated with paxlovid ending 09/17. PCR still positive on admission but not hypoxic. Not re-treated with remdesavir. 13 days out so precautions not continued. (4) Hyperthyroidism: Status: Chronic Assessment and plan: uncontrolled off methimazole therapy. She seems to have missed her morning metoprolol as well. Resume both. On initial 10mg TID dosing of methimazole, she was down to just 2.5mg daily before stopping methimazole last year. Will give a lower dose upon discharge. (5) Tachycardia: Status: Acute Assessment and plan: Sinus tachycardia related to some mild dehydration, bronchodilators, and uncontrolled hyperthyroidism. Given 1000 ml of fluids in ED, on 75ml/hr overnight. Drinking now, fluids stopped. Resumed metoprolol, using levalbuterol, treating thyoid. Tachycardia has resolved. (6) Smoker: Status: Acute Assessment and plan: nicotene prn, encouraged cessation. (7) Subcutaneous mass of back: Assessment and plan: She did not know what this is, but this was present on CT scan in 2021, so unlikely malignant. F/u PCP. (8) Ectatic thoracic aorta: Assessment and plan: outpatient f/u (9) Insomnia: Status: Acute Assessment and plan: chronic. Also appetite not great chronically. Try mirtazipine. (10) DVT prophylaxis: Status: Acute Assessment and plan: LMWH Subjective Subjective Interval history since last seen: pt seen and examined in the am. No new complaints Exam Narrative Exam Narrative: GEN: Alert and oriented, No acute distress at rest. LUNGS: No longer tachypneic mid increase WOB but speaking in full sentences. No rales or wheeze, some prolonged expiration. CV: RRR with no murmurs, gallops, or rubs. ABD: active bowel sounds, soft, nontender and nondistended. No masses. EXT: no cyanosis, clubbing, or edema Objective Last Vital Signs Temp 37.0 C 09/25/24 15:20 Pulse 78 09/25/24 15:20 Resp 16 09/25/24 15:20 BP 131/64 09/25/24 15:20 Pulse Ox 95 09/25/24 15:20 Time Spent with Patient Time Spent with Patient: 35-49 minutes Time was spent: preparing to see the patient(eg.review tests), obtaining and/or reviewing separately otained hiistory, ordering medications,tests, procedures, referring, communicating with other health managed care liaison, indepentently interpreting results, counseling the patient and care coordination
[2024-09-25] MEDS: Acetaminophen 325 MG TAB PO (20:22)
[2024-09-25] MEDS: Mirtazapine 15 MG TAB 7.5 MG PO (20:22)
[2024-09-25] MEDS: Melatonin 3 MG TAB PO (20:23)
[2024-09-25] MEDS: Enoxaparin 40 MG/0.4 ML SYR SC (22:08)
[2024-09-26 07:11] LABS: Abs Immature Grans 0.09 10^3/uL (0.0-0.06); Absolute Basophil Count 0.03 10^3/uL (0.0-0.2); Absolute Eosinophil Count 0.11 10^3/uL (0.0-0.7); Basophils % 0.2 %; Eosinophils % 0.7 %; HCT 37.8 % (36.0-46.0); HGB 12.3 g/dL (11.2-15.7); Immature Grans % 0.6 %; MCH 32.2 pg (27.0-33.0); MCHC 32.5 % (32.0-36.0); MCV 99 fL (80-95); MPV 10.8 fL (8.0-11.0); Monocytes % 5.9 %; Neutrophils % 72.6 %; Platelet Count 261 10^3/uL (130-400); RBC 3.82 10^6/uL (3.93-5.22); RDW 12.8 % (11.7-14.6); RDW-SD 46.2 fL; WBC 15.01 10^3/uL (4.4-10.8)
[2024-09-26 07:16] LABS: Absolute Monocyte Count 0.89 10^3/uL (0.1-0.8)
[2024-09-26 07:34] LABS: ALT 26 U/L (14-59); AST 16 U/L (15-37); Albumin 2.2 g/dL (3.4-5.0); Alkaline Phosphatase 66 U/L (46-116); BUN 17 mg/dL (7-18); Bilirubin, Total 0.39 mg/dL (0.2-1.0); CREATININE 0.8 mg/dL (0.55-1.02); Calcium 8.9 mg/dL (8.5-10.1); Chloride 106 mmol/L (98-107); Estimated GFR 73.98 (mL/min/1.73m2); Glucose 88 mg/dL (74-106); Sodium 140 mmol/L (136-145)
[2024-09-26] MEDS: Ipratropium/Albuterol 4 GM 120 PUFF INH IH ×4 (07:34→21:51)
[2024-09-26 07:48] VITALS: BP 149/74; PULSE 99; RESP 22; TEMP 36.8; O2SAT 94
[2024-09-26] MEDS: Metoprolol 50 MG TAB PO ×2 (08:12→20:13)
[2024-09-26] MEDS: levoFLOXacin 500 MG, levoFLOXacin 250 MG 750 MG PO (08:12)
[2024-09-26] MEDS: Multivitamin TAB 1 TAB PO (08:12)
[2024-09-26] MEDS: levoFLOXacin 250 MG TAB (08:12)
[2024-09-26] MEDS: methIMAzole 5 MG TAB 10 MG PO ×3 (08:13→20:12)
[2024-09-26] MEDS: Lisinopril 5 MG TAB 2.5 MG PO (08:13)
[2024-09-26] MEDS: predniSONE 20 MG TAB 40 MG PO (08:15)
--- NOTE | 2024-09-26 14:35 | PT.INTREAT ---
PT Notes Visit Reasons: COPD Exacerbation Inpatient Physical Therapy Treatment Note [facility] Date: 09/26/24 SUBJECTIVE: Julia states that her back is very uncomfortable where ever she ends up. Is ready to go home soon. OBJECTIVE: []? VITALS: ?monitored by nsg BED MOBILITY/TRANSFERS? Supine-sit: S ? Sit-supine: S ? Sit-stand: S ? Stand-sit: S? Bed-Chair:S ? Chair-bed:S pt seated in recliner this am. PM session: I just got into bed. Provided skilled cues and instruction on performance and technique throughout. ? Therapeutic Exercises (50432g5): Direct one-on-one instruction in therapeutic exercises to develop strength, endurance, range of motion and flexibility. ? Exercises ?too tired to ex after ambulation. Ambulation ? Assistive Device: FWW ? Weight bearing: AT Assist: SBA? Distance:?AM session: approx 100' PM session: 200'? Deviation: pulls her left LE behind her with extreme ER. ? ASSESSMENT:? mild SOB noted post ambulation. Significant improvement with endurance this pm as she was able to ambulate greater distance. Tried several pillow arrangements for her back this pm. Changed out chairs this am. PLAN: continue POC. Add in some global strengthening ex next session. TREATMENT CODE/TIME: 15 min in am and 20 min in pm. [id number]
--- NOTE | 2024-09-26 14:47 | PDOC.CMPRO ---
Date of service: 09/26/24 Time of Service: 14:51 Care Management Progress Note Progress Note Text Progress Note Text: Julia was sitting up in bed visiting with her son and granddaughter when CM met with her. She stated that she is feeling much better today; she is on room air and walked the loop with PT. She stated that she isn't sleeping well here, and that her appetite is poor; her son stated that he can usually tell that she is getting sick when her appetite reduces drastically. She asked for nicotine replacement; her granddaughter informed her nurse of this request. Julia stated that she plans not to continue smoking once she is home; CM discussed community resources for tobacco cessation, which she appreciated. CM will continue to follow. Discharge Potential Discharge Needs: PCP F/U Appt Anticipated Barriers to Discharge: None Identified Patient/Family Education Needs: Review discharge instructions, discuss Ask Me Three Transportation: Private vehicle Plan: Anticipate Julia will be discharged home, possibly with new home health services, when medically cleared. She will follow up with her PCP and plan of care and transport with family. CM will follow and continue to assess for discharge needs. Social Determinants of Health Screening Social Determinants of Health last assessed: 09/26/24 Will the Patient Participate in the Screening?: Yes Do you worry about having a steady place to live?: no Problems where you live: no known problems In the past 12 months, have you had to go without electric, gas, oil or water in your home?: no Have you or anyone in your house had to go without enough food to eat?: no Has lack of transportation kept you from medical appointments or from doing things needed for daily living?: no Has anyone in your life made you feel unsafe or unsupported?: no How hard is it for you to pay for the very basics like food, housing, medical care, and heating? Would you say it is:: Not hard at all Do you want help finding or keeping work or a job?: I do not need or want help If for any reason you need help with day-to-day activities such as bathing, preparing meals, shopping, managing finances, etc., do you get the help you need?: I get all the help I need How often do you feel lonely or isolated from those around you?: Never Do you speak a language other than Malaysian at home?: No
[2024-09-26] MEDS: Nicotine 21 MG/24 HR PATCH TD (15:24)
--- NOTE | 2024-09-26 15:54 | CHAPLAIN ---
Julia was sitting up in bed when I visited. She told me that she is hard of hearing. She said she is starting to feel better. 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 He 11 years ago. Then Julia moved in with her son, and his two (now) adult children. The adult children have health issues so do not work, but help Julia at the house. Her son is a special certified tower climber and Julia was proud that he had chosen to be a teacher. I explained my role and offered support.Julia said staff have been very nice to her.
[2024-09-26 15:59] VITALS: BP 116/56; PULSE 101; RESP 19; TEMP 36.5; O2SAT 94
--- NOTE | 2024-09-26 16:17 | PGE_ITS ---
Date of Service Date of service: 09/26/24 Time of Service: 16:17 Assessment and Plan Assessment and plan (1) COPD exacerbation: Status: Acute Assessment and plan: On admission hypoxic but very short of breath. In respiratory distress, so I agree with observing in the hospital She was not aware of COPD diagnosis but emphysema on CT. s/p dexamethasone in ED, now on oral prednisone a/w focal pneumonia, see below. Levalbuterol given tachycardia. Can try low dose lorazepam for anxiety. 09/26/24 Pt does seem to be improving but wants to stay another day. Pt does seem to have both obstructive and restrictive defects (posture related) will c/w duoneb/levaquin/prednisone (2) Community acquired pneumonia: Status: Acute Assessment and plan: Assymetric infiltrate on CT. WBC elevated but procalcitonin not elevated. Given focal imaging and WBC along with sputum/cough will treat as pneumonia. s/p levofloxacin in ED. PCN allergy non-specific childhood allergy, will proceed with ceftriaxone along with doxy. Ambulate with PT to help keep lungs open. pt lost iv access will change to levaquin (3) COVID: Status: Acute Assessment and plan: s/p COVID diagnosed 09/11, treated with paxlovid ending 09/17. PCR still positive on admission but not hypoxic. Not re-treated with remdesavir. 13 days out so precautions not continued. (4) Hyperthyroidism: Status: Chronic Assessment and plan: uncontrolled off methimazole therapy. She seems to have missed her morning metoprolol as well. Resume both. On initial 10mg TID dosing of methimazole, she was down to just 2.5mg daily before stopping methimazole last year. Will give a lower dose upon discharge. (5) Tachycardia: Status: Acute Assessment and plan: Sinus tachycardia related to some mild dehydration, bronchodilators, and uncontrolled hyperthyroidism. Given 1000 ml of fluids in ED, on 75ml/hr overnight. Drinking now, fluids stopped. Resumed metoprolol, using levalbuterol, treating thyoid. Tachycardia has resolved. (6) Smoker: Status: Acute Assessment and plan: nicotene prn, encouraged cessation. (7) Subcutaneous mass of back: Assessment and plan: She did not know what this is, but this was present on CT scan in 2021, so unlikely malignant. F/u PCP. (8) Ectatic thoracic aorta: Assessment and plan: outpatient f/u (9) Insomnia: Status: Acute Assessment and plan: chronic. Also appetite not great chronically. Try mirtazipine. (10) DVT prophylaxis: Status: Acute Assessment and plan: LMWH Subjective Subjective Interval history since last seen: Pt seen and examined in her room this afternoon. POC d/w pt as well as son who was in the room. Pt states that she still has sob with ambulating which is worse than usual. Exam Narrative Exam Narrative: GEN: Alert and oriented, No acute distress at rest. LUNGS: No longer tachypneic mid increase WOB but speaking in full sentences. No rales or wheeze, some prolonged expiration. CV: RRR with no murmurs, gallops, or rubs. ABD: active bowel sounds, soft, nontender and nondistended. No masses. EXT: no cyanosis, clubbing, or edema pt does have some kyphosis in her thoracic region as well Objective Last Vital Signs Temp 36.5 C 09/26/24 15:59 Pulse 101 H 09/26/24 15:59 Resp 19 09/26/24 15:59 BP 116/56 L 09/26/24 15:59 Pulse Ox 94 09/26/24 15:59 Laboratory Results - last 24 hr 09/26/24 06:30 WBC 15.01 H RBC 3.82 L Hgb 12.3 Hct 37.8 MCV 99 H MCH 32.2 MCHC 32.5 RDW 12.8 Plt Count 261 MPV 10.8 Immature Gran % 0.6 Neutrophils % 72.6 Lymphocytes % 20.0 Monocytes % 5.9 Eosinophils % 0.7 Basophils % 0.2 Nucleated RBC % 0.0 Absolute Neutrophils 10.90 H Absolute Lymphocytes 3.00 Absolute Monocytes 0.89 H Absolute Eosinophils 0.11 Absolute Basophils 0.03 Sodium 140 Potassium 4.0 Chloride 106 Carbon Dioxide 32.0 Anion Gap 2.0 L BUN 17 Creatinine 0.8 Est GFR (CKD-EPI 2020) 73.98 Glucose 88 Calcium 8.9 Total Bilirubin 0.39 AST 16 ALT 26 Alkaline Phosphatase 66 Total Protein 6.0 L Albumin 2.2 L Time Spent with Patient Time Spent with Patient: 25-34 minutes Time was spent: preparing to see the patient(eg.review tests), obtaining and/or reviewing separately otained hiistory, ordering medications,tests, procedures, referring, communicating with other health patient care director, indepentently interpreting results, counseling the patient and care coordination
[2024-09-26] MEDS: Mirtazapine 15 MG TAB 7.5 MG PO (20:13)
[2024-09-26] MEDS: Melatonin 3 MG TAB PO (20:14)
[2024-09-26] MEDS: Calcium Carbonate 1.5 GM TAB PO (20:15)
[2024-09-26 20:22] VITALS: BP 122/70; PULSE 117; RESP 18; TEMP 36.8; O2SAT 95
[2024-09-26] MEDS: Enoxaparin 30 MG/0.3 ML SYR SC (22:28)
[2024-09-27 00:01] VITALS: BP 111/54; PULSE 66; RESP 16; TEMP 36.8; O2SAT 92
[2024-09-27] MEDS: Ipratropium/Albuterol 4 GM 120 PUFF INH IH ×2 (07:50→12:21)
[2024-09-27 07:51] VITALS: O2SAT 93
[2024-09-27] MEDS: methIMAzole 5 MG TAB 10 MG PO (07:56)
[2024-09-27] MEDS: Multivitamin TAB 1 TAB PO (07:56)
[2024-09-27] MEDS: Calcium Carbonate 1.5 GM TAB PO (07:56)
[2024-09-27] MEDS: predniSONE 20 MG TAB 40 MG PO (07:57)
[2024-09-27] MEDS: Lisinopril 5 MG TAB 2.5 MG PO (07:57)
[2024-09-27] MEDS: Metoprolol 50 MG TAB PO (07:59)
[2024-09-27] MEDS: Nicotine 21 MG/24 HR PATCH TD (08:00)
[2024-09-27 08:04] VITALS: BP 138/66; PULSE 102; RESP 20; TEMP 37.3; O2SAT 93
--- NOTE | 2024-09-27 12:24 | W.PM.DS.N ---
Date of service: 09/27/24 Time of Service: 12:25 DS: Diagnosis Discharge Diagnosis (1) COPD exacerbation: Status: Acute (2) Community acquired pneumonia: Status: Acute (3) COVID: Status: Acute (4) Hyperthyroidism: Status: Chronic (5) Tachycardia: Status: Acute (6) Smoker: Status: Acute (7) Subcutaneous mass of back: (8) Ectatic thoracic aorta: (9) Insomnia: Status: Acute (10) DVT prophylaxis: Status: Acute Discharge Plan Disposition Patient Disposition: Home Condition: Stable Discharge Details Reason For Visit: COPD Exacerbation Admit Date/Time: 09/23/24 14:25 Admit Provider: Milind Moffett Attending Provider: Milind Moffett Primary Care Provider: Dilma Dubose Hospital Course Hospital Course: This is a 79-year-old female who was admitted to the hospital on September 23 for COPD exacerbation. At the time of discharge her white count was 15,000 but needs to be reviewed in light of using steroids. The patient did have an elevated MCV which will need to be worked up in the outpatient setting. Patient also had a low TSH and elevated free T4 once again will need to be worked up in the outpatient setting. In reviewing her record she also had a mild hematuria which I recommend a repeat urinalysis in 4 to 6 weeks to ensure resolution. Chest CT was done and was essentially benign and I will add the impression to the bottom of this report. On the once the patient had been off supplemental oxygen for over 24 hours we recommend discharge to which she readily agreed. Vital signs at the time of discharge are reassuring. I have sent prescriptions over to her pharmacy for prednisone as well as Levaquin. Home Meds and New Rx's Prescriptions: New mirtazapine 15 mg Tablet 7.5 mg PO HS Qty: 30 0RF levofloxacin 750 mg Tablet 750 mg PO Q48H Qty: 2 0RF prednisone 10 mg tablet 10 mg PO DAILY Qty: 7 0RF levofloxacin 750 mg tablet 750 mg PO .q48 Qty: 2 0RF Continued multivitamin Tablet 1 tab PO DAILY metoprolol tartrate 100 mg Tablet 50 mg PO BID calcium carbonate 600 mg calcium (1,500 mg) Tablet 600 mg PO TID methimazole 5 mg Tablet 2.5 mg PO DAILY lisinopril 5 mg Tablet 2.5 mg PO DAILY melatonin 3 mg Tablet 3 mg PO HS Qty: 0 0RF Combivent Respimat 20-100 mcg/actuation mist 1 puff inhalation Q6H PRN (Reason: shortness of breath or wheezing) Qty: 4 0RF Discharge Instructions Referrals: Dilma Dubose [Primary Care Provider] - (follow up in 5-7 days) Activity:: Activity as Tolerated Equipment/Supplies:: No Equipment Needed Diet:: As Tolerated Discharge Orders Discharge Orders: Discharge Order (Routine); Ordered 09/27/24 Ordered By: Carlo Tai DS: Summary Time Spent with Patient providing and/or coordinating discharge services: Greater than 30 minutes Status at Discharge Functional status at discharge: independent ambulation Overall status at discharge: patient is progressing back to baseline Mental Status: mental status grossly normal Speech and Movement: speech and movement normal Mood: congruent mood Affect: normal affect Quality:SDOH Health Related Social Needs: Health related social needs housing instability, housed, with risk of homelessness (Z59.811) Exam Narrative Exam Narrative: GEN: Alert and oriented, No acute distress at rest. LUNGS: No longer tachypneic mid increase WOB but speaking in full sentences. No rales or wheeze, some prolonged expiration. CV: RRR with no murmurs, gallops, or rubs. ABD: active bowel sounds, soft, nontender and nondistended. No masses. EXT: no cyanosis, clubbing, or edema pt does have some kyphosis in her thoracic region as well Psych Mental Status: mental status grossly normal Speech and Movement: speech and movement normal Mood: congruent mood Affect: normal affect DS: Data Vitals/I&O Vitals and I&O: Vital Signs Temperature 37.3 C 09/27/24 08:04 Temperature Source Tympanic 09/27/24 00:01 Pulse 102 H 09/27/24 08:04 Pulse Rhythm Regular 09/23/24 16:37 Pulse 115 H 09/23/24 16:01 Respiratory Rate 20 09/27/24 08:04 Respiratory Effort Short of Breath 09/23/24 16:37 Respiratory Depth Normal 09/23/24 16:37 Respiratory Pattern Tachypnea 09/23/24 16:37 Blood Pressure 138/66 09/27/24 08:04 Blood Pressure Mean 83 09/23/24 16:01 Blood Pressure Position Sitting 09/23/24 07:14 Pulse Oximetry 93 09/27/24 08:04 Oxygen Delivery Method Room Air 09/27/24 08:04 Oxygen Flow Rate 0 09/27/24 08:04 Pain Level 0 09/27/24 09:13 Comment post activity and breathing treatment 09/27/24 08:04 Intake & Output 09/26/24 09/27/24 09/27/24 23:59 11:59 23:59 Intake Total 980 / 1580 700 / 940 240 / 940 Output Total 200 / 200 Balance 980 / 1580 700 / 740 40 / 740 Weight 43.6 kg Intake: Oral 980 / 1580 700 / 940 240 / 940 Output: Urine 200 / 200 Other: Urine Color Pale Yellow Yellow Urine Appearance Clear Clear Urine Odor None Comment pt voided x1 lightly incontinent overnight Stool Size Moderate Moderate Stool Characteristics Soft Formed Hard Data Completed and Pending Labs on day of discharge: Preliminary micro results at discharge 09/23/24 07:35 Blood Culture - Preliminary Blood NO GROWTH 96 HOURS PFSH All Active Problems (Updated 09/24/24 @ 11:29 by Milind Moffett) Insomnia (Acute) Community acquired pneumonia (Acute) Smoker (Acute) Tachycardia (Acute) DVT prophylaxis (Acute) Hyperthyroidism (Chronic) COPD exacerbation (Acute) Shortness of breath (Acute) Acute UTI (Acute) Cough (Acute) Fatigue (Acute) Anorexia (Acute) COVID (Acute) Hyperlipidemia (Acute) Hypertension (Chronic) Medical History (Updated 09/24/24 @ 11:29 by Milind Moffett) Ectatic thoracic aorta 4cm Subcutaneous mass of back Surgical History S/P appendectomy Family History Son Diabetes Social History Smoking/Tobacco Use Status: Current every day Tobacco Type: cigarettes Years smoked: 20 Smoking risk assessment performed?: Yes Alcohol Intake: former Substance use type: does not use Housing: house Do you feel safe at home: Yes Do you feel safe in your relationship?: Yes Additional Social history: Lives with son and 3 kids in [place] Time Spent with Patient Time Spent with Patient: 45-69 minutes Time was spent: preparing to see the patient(eg.review tests), obtaining and/or [facility], ordering medications,tests, procedures, referring, communicating with other health urgent care nurse practitioner, indepentently interpreting results, counseling the patient and care coordination
--- NOTE | 2024-09-27 12:41 | PT.INTREAT ---
PT Notes Visit Reasons: COPD Exacerbation Inpatient Physical Therapy Treatment Note [facility] Date: 09/27/24 SUBJECTIVE: Julia reports she slept all night and feels much better today OBJECTIVE: semireclined in bed . ? VITALS: ?monitored by nsg BED MOBILITY/TRANSFERS? Supine-sit:Independent ? Sit-supine: S( not tested today)? Sit-stand: Independent with proper hand placement? Stand-sit: Independent with proper hand placement ? Bed-Chair:Independent with FWW ? Chair-bed:Independent with FWW ? Ambulation ? Assistive Device: FWW ? Weight bearing: AT Assist: SBA? Distance:?200 feet? Deviation: pulls her left LE behind her with extreme ER. ?no knee flexion on LLE ? ASSESSMENT:? Pt demonstrates carryover of proper hand placement during transfers. She noted Left calf stretching during ambulation today this resolved with cue to stay closer to her FWW. Pt is approaching baseline level of function PLAN: continue POC. Add in some global strengthening ex next session. TREATMENT CODE/TIME: 59731 / [id number]
--- NOTE | 2024-09-27 17:09 | CMDISCH_ITS ---
Date of service: 09/27/24 Time of Service: 17:09 LACE Index Scoring Tool Questions: Length of Stay (in days): 4 - 6 Was the patient admitted via the E.D.?: Yes Comorbidities: Chronic Pulmonary Disease E.D. Visits: 2 Answers: Total Score: 11 Risk of Readmission: High Risk Care Management Discharge Plan Reason for Hospitalization: COPD Exacerbation Discharge Plan: Julia will be discharged home with no new services. She will foll ow up with her community providers and plan of care and transport with family. Patient/Family Education Needs: Review of discharge instructions, limitations, follow up plan and discuss Ask Me Three. SDOH Health Related Social Needs: Health related social needs housing instability, house d, with risk of homelessness (Z59.811)
== END 2024-09-27 13:16 | disposition home or self-care (01) ==
LOC: ER 15:33 → MS 16:24
PROVIDERS: Hospitalist; Admitting Provider Family Medicine; Emergency Provider Emergency Medicine; PCP Physician Assistant Medical; Visit Provider Family Medicine
DX: J44.1 Chronic obstructive pulmonary disease with (acute) exacerbation (principal); R06.03 Acute respiratory distress; U07.1 COVID-19; J18.9 Pneumonia, unspecified organism; E86.0 Dehydration; E05.90 Thyrotoxicosis, unspecified without thyrotoxic crisis or storm; R00.0 Tachycardia, unspecified; R22.2 Localized swelling, mass and lump, trunk; I77.810 Thoracic aortic ectasia; G47.00 Insomnia, unspecified; I10 Essential (primary) hypertension; F17.210 Nicotine dependence, cigarettes, uncomplicated; N20.0 Calculus of kidney; Z79.899 Other long term (current) drug therapy
CPT/HCPCS: 00123; 36415; 71275; 80053; 84145; 87040; 87637; 93005; 94640; 96361; 96365; 96366; 96372; 96375; 97110; 97162; 97530; 99285; J1650; 81003; 81015; 83735; 83880; 84439; 84443; 84484; 85025; 85610; 85730; 93010; 94664; 94760; 99223; 99232; 99233; 99239; J0696; J1100; J1956; J3490; J7512; J7614; J7620

== ENCOUNTER 2024-10-06 10:09 | Inpatient (IN) | payer MEDICARE, SELFPAY ==
[2024-10-06] VITALS (70 sets, daily range): BP systolic 92–153; BP diastolic 47–76; PULSE 68–142; RESP 14–39; TEMP 35.2–37.2; O2SAT 73–98
--- NOTE | 2024-10-06 10:00 | RT.EKG_ITS ---
APPROVED REPORT Exam: Resting ECG Reason for Exam: dyspnea Patient Location: E HR:85 bpm ECG Measurements Heart Rate 85 AXIS ND 121 P -47 QRSd 75 QRS 36 QT 337 T 39 QTc 402 Conclusion Sinus or ectopic atrial rhythm...P axis (-45,135) Borderline ST elevation, lateral leads. No significant change from prior
[2024-10-06 11:26] LABS: Abs Immature Grans 0.13 10^3/uL (0.0-0.06); Absolute Basophil Count 0.06 10^3/uL (0.0-0.2); Absolute Eosinophil Count 0.08 10^3/uL (0.0-0.7); Absolute Lymphocyte Count 1.73 10^3/uL (1.2-3.4); Basophils % 0.5 %; Eosinophils % 0.7 %; HGB 11.8 g/dL (11.2-15.7); Immature Grans % 1.1 %; Lymphocytes % 14.7 %; MCH 32.4 pg (27.0-33.0); MCHC 32.8 % (32.0-36.0); MCV 99 fL (80-95); MPV 11.2 fL (8.0-11.0); Monocytes % 10.2 %; Neutrophils % 72.8 %; Platelet Count 244 10^3/uL (130-400); RBC 3.64 10^6/uL (3.93-5.22); RDW 13.2 % (11.7-14.6); RDW-SD 47.8 fL; WBC 11.74 10^3/uL (4.4-10.8)
[2024-10-06 11:27] LABS: Absolute Neutrophil Count 8.55 10^3/uL (1.2-6.7)
[2024-10-06] MEDS: methylPREDNISolone SUCC 125 MG VIAL 80 MG IVP (11:27)
[2024-10-06] MEDS: Albuterol/Ipratropium 3 ML UPD VIAL UPD (11:28)
[2024-10-06] MEDS: Lactated Ringers 1,000 ML 1000 ML IV (11:28)
--- NOTE | 2024-10-06 12:05 | DI.RAD_ITS ---
Exam(s) XR CHEST 2V PA LATERAL EXAM: XR CHEST 2V PA LATERAL CLINICAL HISTORY: shortness of breath TECHNIQUE: 2D digital imaging was performed. Two views. COMPARISON: CT CT CHEST PE CTA from 09/23/2024 FINDINGS: HEART: Normal size. Aorta: Not dilated. PULMONARY VASCULATURE: Normal. MEDIASTINUM: Unremarkable. LUNGS: Right apical scarring, otherwise clear. PLEURAL SPACE: No pleural effusion or pneumothorax. BONE:Unremarkable for age. SOFT TISSUES: Unremarkable. IMPRESSION: No acute abnormality. DATA REPOSITORY: RADIATION DOSE DELIVERED:
[2024-10-06 12:24] LABS: Influenza A PCR Negative (Negative); Influenza B PCR Negative (Negative); RSV PCR Negative (Negative)
[2024-10-06 12:26] LABS: Source Nasopharynx
[2024-10-06 12:27] LABS: COVID-19 PCR Positive (Negative)
[2024-10-06 12:27] LABS: ALT 23 U/L (14-59); AST 17 U/L (15-37); Albumin 2.4 g/dL (3.4-5.0); Alkaline Phosphatase 68 U/L (46-116); Anion Gap 2.6 mmol/L (3-11); BUN 16 mg/dL (7-18); Bilirubin, Total 0.74 mg/dL (0.2-1.0); CO2 33.4 mmol/L (21.0-32.0); CREATININE 0.9 mg/dL (0.55-1.02); Calcium 9.1 mg/dL (8.5-10.1); Chloride 100 mmol/L (98-107); Estimated GFR 64.23 (mL/min/1.73m2); Glucose 77 mg/dL (74-106); Lipase 25 U/L (<78); Magnesium 2.2 mg/dL (1.8-2.4); NT-proBNP 334 pg/mL (<300); Potassium 4.4 mmol/L (3.5-5.1); Sodium 136 mmol/L (136-145); TSH (W/Ref FT4) 0.34 uIU/mL (0.36-3.74); Total Protein 6.6 g/dL (6.4-8.2); Troponin I 5 ng/L (<or=51)
[2024-10-06 12:45] LABS: FREE T4 1.37 ng/dL (0.76-1.46)
[2024-10-06 12:59] LABS: Troponin I 5 ng/L (<or=51)
[2024-10-06 13:48] LABS: Bilirubin Negative (Negative); Blood Negative (Negative); Clarity Clear (Clear); Glucose Negative (Negative); Ketones Negative (Negative); Leukocyte Esterase Negative (Negative); Nitrite Negative (Negative); Specific Gravity 1.015 (1.005-1.025); Urobilinogen 0.2 mg/dL (Up to 0.2)
[2024-10-06] MEDS: Albuterol 2.5 MG/3 ML INH SOLN VIAL UPD (14:21)
[2024-10-06 14:34] LABS: BE (Venous) 5 mmol/L (-2-3); HCO3 (Venous) 29 mmol/L (23-28); O2 Sat (Venous) 79 %; TCO2 (Venous) 27 mmol/L (24-29); pCO2 (Venous) 41 mmHg (41-51); pH (Venous) 7.46 (7.31-7.41); pO2 (Venous) 42 mmHg
[2024-10-06 14:46] LABS: Anion Gap 3.3 mmol/L (3-11); BUN 14 mg/dL (7-18); CO2 30.7 mmol/L (21.0-32.0); CREATININE 0.8 mg/dL (0.55-1.02); Chloride 102 mmol/L (98-107); Estimated GFR 73.98 (mL/min/1.73m2); Glucose 121 mg/dL (74-106); Potassium 4.3 mmol/L (3.5-5.1); Sodium 136 mmol/L (136-145)
[2024-10-06 14:56] LABS: Troponin I 6 ng/L (<or=51)
--- NOTE | 2024-10-06 15:00 | RT.EKG_ITS ---
APPROVED REPORT Exam: Resting ECG Reason for Exam: tachycardia Patient Location: E HR:100 bpm ECG Measurements Heart Rate 100 AXIS IA 142 P 52 QRSd 76 QRS -3 QT 332 T 0 QTc 430 Conclusion Sinus tachycardia with irregular rate...V-rate 87-119, variation>10% Nonspecific T abnormalities, anterior leads...T <-0.10mV, V2-V4 [id number]
[2024-10-06 15:27] LABS: Lactate 1.7 mmol/L (<or=2.0)
--- NOTE | 2024-10-06 15:34 | ED.GENADUL_ITS ---
Discharge Plan Disposition Patient Disposition: Admit to [facility] Condition: Serious Discharge Details Clinical Impression: COPD exacerbation, Respiratory failure, COVID Primary Care Provider: Dilma Dubose ED Provider: Millicent Rae Home Meds and New Rx's Prescriptions: No Action multivitamin Tablet 1 tab PO DAILY metoprolol tartrate 100 mg Tablet 50 mg PO BID calcium carbonate 600 mg calcium (1,500 mg) Tablet 600 mg PO TID methimazole 5 mg Tablet 2.5 mg PO DAILY lisinopril 5 mg Tablet 2.5 mg PO DAILY melatonin 3 mg Tablet 3 mg PO HS Qty: 0 0RF mirtazapine 15 mg Tablet 7.5 mg PO HS Qty: 30 0RF levofloxacin 750 mg Tablet 750 mg PO Q48H Qty: 2 0RF levofloxacin 750 mg tablet 750 mg PO .q48 Qty: 2 0RF albuterol sulfate [Ventolin HFA] 90 mcg/actuation HFA aerosol inhaler 2 puff INHALATION Q6H Combivent Respimat 20-100 mcg/actuation mist 1 puff inhalation Q6H PRN (Reason: shortness of breath or wheezing) Qty: 4 0RF HPI General Date/Time Provider Initiated Documentation: 10/06/24 10:29 . HPI Narrative: The patient is a mildred 79-year-old female who was recently diagnosed with CO VID-19 three weeks prior to arrival. She was admitted most recently at our facility for her COPD exacerbation and was discharged on 09/26/2024. She states that since that time, she has had a foul taste in her mouth and difficulty drinking and eating secondary to that. She feels like she might be dehydrated and has only urinated twice in the past 2 days, which is why she was sent here. Her son also believes that she is having some increased work of breathing which was improving when she was discharged from our hospital. She was diagnosed with COPD recently and is using albuterol at home. She is not on a steroid inhaler. Patient does not endorse any specific pain complaints, specifically does not endorse any chest pain or abdominal discomfort. She does not endorse any nausea or vomiting. Related Data Home Medications ?Medication ?Instructions ?Recorded ?Confirmed calcium carbonate 600 mg PO TID 04/30/22 10/06/24 lisinopril 5 mg tablet 2.5 mg PO DAILY 04/30/22 10/06/24 methimazole 5 mg tablet 2.5 mg PO DAILY 04/30/22 10/06/24 metoprolol tartrate 100 mg tablet 50 mg PO BID 04/30/22 10/06/24 multivitamin 1 tab PO DAILY 04/30/22 10/06/24 melatonin 3 mg tablet 3 mg PO HS #0 tabs 05/04/22 10/06/24 ipratropium 20 mcg-albuterol 100 1 puff inhalation Q6H PRN 05/26/23 10/06/24 mcg/actuation mist for inhalation shortness of breath or wheezing #4 (Combivent Respimat) grams levofloxacin 750 mg tablet 750 mg PO .q48 #2 tabs 09/27/24 10/06/24 levofloxacin 750 mg tablet 750 mg PO Q48H #2 tabs 09/27/24 10/06/24 mirtazapine 15 mg tablet 7.5 mg (1/2 x 15 mg) PO HS #30 tabs 09/27/24 10/06/24 albuterol sulfate 90 mcg/actuation 2 puff inhalation Q6H 10/06/24 10/06/24 aerosol inhaler (Ventolin HFA) Previous Rx's ?Medication ?Instructions ?Recorded melatonin 3 mg tablet 3 mg PO HS #0 tabs 05/04/22 ipratropium 20 mcg-albuterol 100 1 puff inhalation Q6H PRN 05/26/23 mcg/actuation mist for inhalation shortness of breath or wheezing #4 (Combivent Respimat) grams levofloxacin 750 mg tablet 750 mg PO .q48 #2 tabs 09/27/24 levofloxacin 750 mg tablet 750 mg PO Q48H #2 tabs 09/27/24 mirtazapine 15 mg tablet 7.5 mg (1/2 x 15 mg) PO HS #30 tabs 09/27/24 Allergies Allergy/AdvReac Type Severity Reaction Status Date / Time aspirin Allergy Unknown Unverified 10/06/24 10:20 bee venom protein (honey bee) Allergy Anaphylaxis Unverified 10/06/24 10:20 Penicillins Allergy Other (See Unverified 10/06/24 10:20 Comment) General Stated Complaint: GenMedical CODY: 3 Exam Narrative Exam Narrative: General Appearance: Patient is alert and oriented, speaking in complete sentences. Vital signs: Within normal limits. HEENT: Mouth shows moist mucous membranes. Respiratory: Patient exhibits mild increased work of breathing. Lung sounds are diminished with crackles bilaterally. No accessory muscle usage observed during rest. Cardiovascular: Heart rate and rhythm are regular. Extremities: No peripheral edema noted, although there is tenderness upon palpation of both lower extremities. Skin: Warm and dry, no rash. Neurological: Normal. Course Vital Signs Vital signs: Vital Signs Temperature 37.1 C 10/06/24 10:12 Pulse 88 10/06/24 10:12 Respiratory Rate 22 10/06/24 10:12 Blood Pressure 128/57 L 10/06/24 10:12 Pulse Oximetry 96 10/06/24 10:12 Temperature 37.1 C 10/06/24 10:31 Temperature Source Oral 10/06/24 10:31 Pulse 138 H 10/06/24 15:20 Pulse 138 H 10/06/24 15:20 Respiratory Rate 20 10/06/24 15:20 Respiratory Effort Non-Labored, Short of Breath 10/06/24 10:52 Respiratory Depth Normal 10/06/24 10:52 Respiratory Pattern Normal 10/06/24 10:52 Blood Pressure 101/58 L 10/06/24 15:15 Blood Pressure Mean 72 10/06/24 15:15 Blood Pressure Position Sitting 10/06/24 10:31 Pulse Oximetry 94 10/06/24 15:26 Oxygen Delivery Method Nasal Cannula 10/06/24 15:26 Oxygen Flow Rate 1.5 10/06/24 15:26 Pain Level 5 10/06/24 10:31 Comment DENISE Tellez aware of HR 10/06/24 13:42 Lab/Test Results Lab/Test Results: Laboratory Tests Range/Units 10/06/24 10/06/24 10/06/24 10:49 10:49 10:49 WBC (4.4-10.8) 10^3/uL 11.74 H RBC (3.93-5.22) 10^6/uL 3.64 L Hgb (11.2-15.7) g/dL 11.8 Hct (36.0-46.0) % 36.0 MCV (80-95) fL 99 H MCH (27.0-33.0) pg 32.4 MCHC (32.0-36.0) % 32.8 RDW (11.7-14.6) % 13.2 Plt Count (130-400) 10^3/uL 244 MPV (8.0-11.0) fL 11.2 H Immature Gran % % 1.1 Neutrophils % % 72.8 Lymphocytes % % 14.7 Monocytes % % 10.2 Eosinophils % % 0.7 Basophils % % 0.5 Nucleated RBC % (0.0-0.3) % 0.0 Absolute Neutrophils (1.2-6.7) 10^3/uL 8.55 H Absolute Lymphocytes (1.2-3.4) 10^3/uL 1.73 Absolute Monocytes (0.1-0.8) 10^3/uL 1.20 H Absolute Eosinophils (0.0-0.7) 10^3/uL 0.08 Absolute Basophils (0.0-0.2) 10^3/uL 0.06 VBG pH (7.31-7.41) VBG pCO2 (41-51) mmHg VBG pO2 mmHg VBG HCO3 (23-28) mmol/L VBG Total CO2 (24-29) mmol/L VBG O2 Saturation % VBG Base Excess (-2-3) mmol/L VBG Lactate (<or=2.0) mmol/L Sodium Cancelled Potassium Cancelled Chloride Cancelled Carbon Dioxide Cancelled Anion Gap Cancelled BUN Cancelled Creatinine Cancelled Est GFR (CKD-EPI 2020) Cancelled Glucose Cancelled Calcium Cancelled Magnesium Cancelled Cancelled Total Bilirubin Cancelled AST Cancelled ALT Cancelled Alkaline Phosphatase Cancelled Troponin I Cancelled Cancelled NT-Pro-B Natriuret Pep Cancelled Total Protein Cancelled Albumin Cancelled Lipase Cancelled TSH Free T4 (0.76-1.46) ng/dL Urine Color (Yellow) Urine Clarity (Clear) Urine pH (5-8) Ur Specific [place] (1.005-1.025) Urine Protein (Neg-Trace) mg/dL Urine Ketones (Negative) mg/dL Urine Blood (Negative) Urine Nitrite (Negative) Urine Bilirubin (Negative) Urine Urobilinogen (Up to 0.2) mg/dL Ur Leukocyte Esterase (Negative) Urine Glucose (Negative) mg/dL COVID-19 Source SARS-CoV-2 (PCR) (Negative) Influenza Type A (PCR) (Negative) Influenza Type B (PCR) (Negative) RSV (PCR) (Negative) Range/Units 10/06/24 10/06/24 10/06/24 10:49 10:49 11:30 WBC (4.4-10.8) 10^3/uL RBC (3.93-5.22) 10^6/uL Hgb (11.2-15.7) g/dL Hct (36.0-46.0) % MCV (80-95) fL MCH (27.0-33.0) pg MCHC (32.0-36.0) % RDW (11.7-14.6) % Plt Count (130-400) 10^3/uL MPV (8.0-11.0) fL Immature Gran % % Neutrophils % % Lymphocytes % % Monocytes % % Eosinophils % % Basophils % % Nucleated RBC % (0.0-0.3) % Absolute Neutrophils (1.2-6.7) 10^3/uL Absolute Lymphocytes (1.2-3.4) 10^3/uL Absolute Monocytes (0.1-0.8) 10^3/uL Absolute Eosinophils (0.0-0.7) 10^3/uL Absolute Basophils (0.0-0.2) 10^3/uL VBG pH (7.31-7.41) VBG pCO2 (41-51) mmHg VBG pO2 mmHg VBG HCO3 (23-28) mmol/L VBG Total CO2 (24-29) mmol/L VBG O2 Saturation % VBG Base Excess (-2-3) mmol/L VBG Lactate (<or=2.0) mmol/L Sodium Potassium Chloride Carbon Dioxide Anion Gap BUN Creatinine Est GFR (CKD-EPI 2020) Glucose Calcium Magnesium Total Bilirubin AST ALT Alkaline Phosphatase Troponin I NT-Pro-B Natriuret Pep Total Protein Albumin Lipase Cancelled TSH Cancelled Cancelled Free T4 (0.76-1.46) ng/dL Urine Color (Yellow) Urine Clarity (Clear) Urine pH (5-8) Ur Specific [place] (1.005-1.025) Urine Protein (Neg-Trace) mg/dL Urine Ketones (Negative) mg/dL Urine Blood (Negative) Urine Nitrite (Negative) Urine Bilirubin (Negative) Urine Urobilinogen (Up to 0.2) mg/dL Ur Leukocyte Esterase (Negative) Urine Glucose (Negative) mg/dL COVID-19 Source Nasopharynx SARS-CoV-2 (PCR) (Negative) Positive A Influenza Type A (PCR) (Negative) Negative Influenza Type B (PCR) (Negative) Negative RSV (PCR) (Negative) Negative Range/Units 10/06/24 10/06/24 10/06/24 11:40 12:33 13:39 WBC (4.4-10.8) 10^3/uL RBC (3.93-5.22) 10^6/uL Hgb (11.2-15.7) g/dL Hct (36.0-46.0) % MCV (80-95) fL MCH (27.0-33.0) pg MCHC (32.0-36.0) % RDW (11.7-14.6) % Plt Count (130-400) 10^3/uL MPV (8.0-11.0) fL Immature Gran % % Neutrophils % % Lymphocytes % % Monocytes % % Eosinophils % % Basophils % % Nucleated RBC % (0.0-0.3) % Absolute Neutrophils (1.2-6.7) 10^3/uL Absolute Lymphocytes (1.2-3.4) 10^3/uL Absolute Monocytes (0.1-0.8) 10^3/uL Absolute Eosinophils (0.0-0.7) 10^3/uL Absolute Basophils (0.0-0.2) 10^3/uL VBG pH (7.31-7.41) VBG pCO2 (41-51) mmHg VBG pO2 mmHg VBG HCO3 (23-28) mmol/L VBG Total CO2 (24-29) mmol/L VBG O2 Saturation % VBG Base Excess (-2-3) mmol/L VBG Lactate (<or=2.0) mmol/L Sodium 136 Potassium 4.4 Chloride 100 Carbon Dioxide 33.4 H Anion Gap 2.6 L BUN 16 Creatinine 0.9 Est GFR (CKD-EPI 2020) 64.23 Glucose 77 Calcium 9.1 Magnesium 2.2 Total Bilirubin 0.74 AST 17 ALT 23 Alkaline Phosphatase 68 Troponin I 5 5 NT-Pro-B Natriuret Pep 334 H Total Protein 6.6 Albumin 2.4 L Lipase 25 TSH 0.34 L Free T4 (0.76-1.46) ng/dL 1.37 Urine Color (Yellow) Yellow Urine Clarity (Clear) Clear Urine pH (5-8) 7.0 Ur Specific [place] (1.005-1.025) 1.015 Urine Protein (Neg-Trace) mg/dL Negative Urine Ketones (Negative) mg/dL Negative Urine Blood (Negative) Negative Urine Nitrite (Negative) Negative Urine Bilirubin (Negative) Negative Urine Urobilinogen (Up to 0.2) mg/dL 0.2 Ur Leukocyte Esterase (Negative) Negative Urine Glucose (Negative) mg/dL Negative COVID-19 Source SARS-CoV-2 (PCR) (Negative) Influenza Type A (PCR) (Negative) Influenza Type B (PCR) (Negative) RSV (PCR) (Negative) Range/Units 10/06/24 10/06/24 14:30 15:18 WBC (4.4-10.8) 10^3/uL RBC (3.93-5.22) 10^6/uL Hgb (11.2-15.7) g/dL Hct (36.0-46.0) % MCV (80-95) fL MCH (27.0-33.0) pg MCHC (32.0-36.0) % RDW (11.7-14.6) % Plt Count (130-400) 10^3/uL MPV (8.0-11.0) fL Immature Gran % % Neutrophils % % Lymphocytes % % Monocytes % % Eosinophils % % Basophils % % Nucleated RBC % (0.0-0.3) % Absolute Neutrophils (1.2-6.7) 10^3/uL Absolute Lymphocytes (1.2-3.4) 10^3/uL Absolute Monocytes (0.1-0.8) 10^3/uL Absolute Eosinophils (0.0-0.7) 10^3/uL Absolute Basophils (0.0-0.2) 10^3/uL VBG pH (7.31-7.41) 7.46 H VBG pCO2 (41-51) mmHg 41 VBG pO2 mmHg 42 VBG HCO3 (23-28) mmol/L 29 H VBG Total CO2 (24-29) mmol/L 27 VBG O2 Saturation % 79 VBG Base Excess (-2-3) mmol/L 5 H VBG Lactate (<or=2.0) mmol/L 1.7 Sodium 136 Potassium 4.3 Chloride 102 Carbon Dioxide 30.7 Anion Gap 3.3 BUN 14 Creatinine 0.8 Est GFR (CKD-EPI 2020) 73.98 Glucose 121 H Calcium 9.0 Magnesium Total Bilirubin AST ALT Alkaline Phosphatase Troponin I 6 NT-Pro-B Natriuret Pep Total Protein Albumin Lipase TSH Free T4 (0.76-1.46) ng/dL Urine Color (Yellow) Urine Clarity (Clear) Urine pH (5-8) Ur Specific [place] (1.005-1.025) Urine Protein (Neg-Trace) mg/dL Urine Ketones (Negative) mg/dL Urine Blood (Negative) Urine Nitrite (Negative) Urine Bilirubin (Negative) Urine Urobilinogen (Up to 0.2) mg/dL Ur Leukocyte Esterase (Negative) Urine Glucose (Negative) mg/dL COVID-19 Source SARS-CoV-2 (PCR) (Negative) Influenza Type A (PCR) (Negative) Influenza Type B (PCR) (Negative) RSV (PCR) (Negative) Medical Decision Making Laboratory Studies White blood cell count is slightly elevated. Imaging Chest x-ray does not show acute abnormality. Assessment and plan: 79-year-old female presenting with recent COVID infection with worsening shortness of breath and decreased fluid intake. Initially no hypoxia or tachycardia, however as the days progressed despite Solu-Medrol and prednisone a dministration, patient has become more hypoxic and tachycardic. Her pulses ranged from 90s to 120s and her oxygen at rest was 85% when she sleeping. She is markedly dyspneic with any sort of exertion, mild leukocytosis 2 troponins that are negative, BNP of 300, low suspicion clinically for COPD. I do not see a clear indication for antibiotics after reviewing the radiologist interpretation of the patient's chest x-ray. I do think she is in acute respiratory failure and is requiring 1.5 L of oxygen, she will need nebs, steroids, and respiratory assessment. I suspect her symptoms are related to her recent COVID-19 diagnosis. At this time I think patient requires admission to the hospital. She has produced 600 cc of urine and IV is able to tolerate p.o. so I think her dehydration is improving and unlikely to be related to the tachycardia or hypoxia. Case discussed with admitting hospitalist team Quality:SDOH Health Related Social Needs: Health related social needs housing instability, house d, with risk of homelessness (Z59.811) Critical Care Time Critical Care Time Attestation: Approximately 35 minutes of critical care time secondary to hypoxic respiratory failure requiring oxygen supplementation nebs, steroids, and admission to the hospital, interpretation and review of x-rays and diagnostic labs PFS All Active Problems (Updated 10/06/24 @ 15:47 by DENISE Tellez) COVID (Acute) Respiratory failure (Acute) Insomnia (Acute) Community acquired pneumonia (Acute) Smoker (Acute) Tachycardia (Acute) Hyperthyroidism (Chronic) COPD exacerbation (Acute) Shortness of breath (Acute) Acute UTI (Acute) Cough (Acute) Fatigue (Acute) Anorexia (Acute) Hyperlipidemia (Acute) Hypertension (Chronic) Medical History (Updated 10/06/24 @ 15:47 by DENISE Tellez) Ectatic thoracic aorta 4cm Subcutaneous mass of back COVID Surgical History S/P appendectomy Family History Son Diabetes Social History Smoking/Tobacco Use Status: Current every day Tobacco Type: cigarettes Years smoked: 60 Smoking risk assessment performed?: Yes Alcohol Intake: former Substance use type: does not use Housing: house Do you feel safe at home: Yes Do you feel safe in your relationship?: Yes Additional Social history: Lives with son and 3 kids in [place]
[2024-10-06 16:19] LABS: Procalcitonin < 0.10 ng/mL
--- NOTE | 2024-10-06 16:26 | W.PC.ACHO ---
Registration Status: Primary Language: Preferred Language: ED Information & Data Chief Complaint GenMedical 10/06/24 15:47 Triage Note Pt arrives to ED w/ son ( 10/06/24 10:12 Shiva) c/o dehydration; decreased UO per pt's son. Son noticed SOB w/ exertion which is new. Pt recently had COVID and was admitted; pt was dx w/ emphysema at that time. Decreased PO intake per pt's son. Medical / Surgical History (Last Updated 09/23/24 @ 17:15 by Milind Moffett) Ectatic thoracic aorta Subcutaneous mass of back COVID (Last Reviewed 09/23/24 @ 17:11 by Milind Moffett) S/P appendectomy Most Recent Vital Signs Temperature 98.8 F 10/06/24 10:31 Temperature Source Oral 10/06/24 10:31 Pulse 131 H 10/06/24 16:10 Pulse 132 H 10/06/24 16:10 Respiratory Rate 24 10/06/24 16:10 Respiratory Effort Non-Labored, Short of Breath 10/06/24 10:52 Respiratory Depth Normal 10/06/24 10:52 Respiratory Pattern Normal 10/06/24 10:52 Blood Pressure 104/52 L 10/06/24 16:01 Blood Pressure Mean 70 10/06/24 16:01 Blood Pressure Position Sitting 10/06/24 10:31 Pulse Oximetry 95 10/06/24 16:10 Oxygen Delivery Method Nasal Cannula 10/06/24 15:26 Oxygen Flow Rate 1.5 10/06/24 15:26 Pain Level 5 10/06/24 10:31 Comment DENISE Tellez aware of HR 10/06/24 13:42 Allergies aspirin Allergy (Unverified 10/06/24 10:20) Unknown unknown bee venom protein (honey bee) Allergy (Unverified 10/06/24 10:20) Anaphylaxis Penicillins Allergy (Unverified 10/06/24 10:20) Other (See Comment) patient states unknown reaction Precautions Isolation Droplet precaution 10/06/24 10:23 IV IV Catheter Type [Right Saline Lock Antecubital] IV Catheter Gauge [Right 20 Antecubital] Diagnostics 10/06/24 10/06/24 10/06/24 Range/Units 15:18 14:30 13:39 WBC (4.4-10.8) 10^3/uL RBC (3.93-5.22) 10^6/uL Hgb (11.2-15.7) g/dL Hct (36.0-46.0) % MCV (80-95) fL MCH (27.0-33.0) pg MCHC (32.0-36.0) % RDW (11.7-14.6) % Plt Count (130-400) 10^3/uL MPV (8.0-11.0) fL Immature Gran % % Neutrophils % % Lymphocytes % % Monocytes % % Eosinophils % % Basophils % % Nucleated RBC % (0.0-0.3) % Absolute Neutrophils (1.2-6.7) 10^3/uL Absolute Lymphocytes (1.2-3.4) 10^3/uL Absolute Monocytes (0.1-0.8) 10^3/uL Absolute Eosinophils (0.0-0.7) 10^3/uL Absolute Basophils (0.0-0.2) 10^3/uL VBG pH 7.46 H (7.31-7.41) VBG pCO2 41 (41-51) mmHg VBG pO2 42 mmHg VBG HCO3 29 H (23-28) mmol/L VBG Total CO2 27 (24-29) mmol/L VBG O2 Saturation 79 % VBG Base Excess 5 H (-2-3) mmol/L VBG Lactate 1.7 (<or=2.0) mmol/L Sodium 136 Potassium 4.3 Chloride 102 Carbon Dioxide 30.7 Anion Gap 3.3 BUN 14 Creatinine 0.8 Est GFR (CKD-EPI 2020) 73.98 Glucose 121 H Calcium 9.0 Magnesium Total Bilirubin AST ALT Alkaline Phosphatase Troponin I 6 NT-Pro-B Natriuret Pep Total Protein Albumin Lipase Procalcitonin < 0.10 ng/mL TSH Free T4 (0.76-1.46) ng/dL Urine Color Yellow (Yellow) Urine Clarity Clear (Clear) Urine pH 7.0 (5-8) Ur Specific Gate 1.015 (1.005-1.025) Urine Protein Negative (Neg-Trace) mg/dL Urine Ketones Negative (Negative) mg/dL Urine Blood Negative (Negative) Urine Nitrite Negative (Negative) Urine Bilirubin Negative (Negative) Urine Urobilinogen 0.2 (Up to 0.2) mg/dL Ur Leukocyte Esterase Negative (Negative) Urine Glucose Negative (Negative) mg/dL COVID-19 Source SARS-CoV-2 (PCR) (Negative) Influenza Type A (PCR) (Negative) Influenza Type B (PCR) (Negative) RSV (PCR) (Negative) 10/06/24 10/06/24 10/06/24 Range/Units 12:33 11:40 11:30 WBC (4.4-10.8) 10^3/uL RBC (3.93-5.22) 10^6/uL Hgb (11.2-15.7) g/dL Hct (36.0-46.0) % MCV (80-95) fL MCH (27.0-33.0) pg MCHC (32.0-36.0) % RDW (11.7-14.6) % Plt Count (130-400) 10^3/uL MPV (8.0-11.0) fL Immature Gran % % Neutrophils % % Lymphocytes % % Monocytes % % Eosinophils % % Basophils % % Nucleated RBC % (0.0-0.3) % Absolute Neutrophils (1.2-6.7) 10^3/uL Absolute Lymphocytes (1.2-3.4) 10^3/uL Absolute Monocytes (0.1-0.8) 10^3/uL Absolute Eosinophils (0.0-0.7) 10^3/uL Absolute Basophils (0.0-0.2) 10^3/uL VBG pH (7.31-7.41) VBG pCO2 (41-51) mmHg VBG pO2 mmHg VBG HCO3 (23-28) mmol/L VBG Total CO2 (24-29) mmol/L VBG O2 Saturation % VBG Base Excess (-2-3) mmol/L VBG Lactate (<or=2.0) mmol/L Sodium 136 Potassium 4.4 Chloride 100 Carbon Dioxide 33.4 H Anion Gap 2.6 L BUN 16 Creatinine 0.9 Est GFR (CKD-EPI 2020) 64.23 Glucose 77 Calcium 9.1 Magnesium 2.2 Total Bilirubin 0.74 AST 17 ALT 23 Alkaline Phosphatase 68 Troponin I 5 5 NT-Pro-B Natriuret Pep 334 H Total Protein 6.6 Albumin 2.4 L Lipase 25 Procalcitonin ng/mL TSH 0.34 L Free T4 1.37 (0.76-1.46) ng/dL Urine Color (Yellow) Urine Clarity (Clear) Urine pH (5-8) Ur Specific Gate (1.005-1.025) Urine Protein (Neg-Trace) mg/dL Urine Ketones (Negative) mg/dL Urine Blood (Negative) Urine Nitrite (Negative) Urine Bilirubin (Negative) Urine Urobilinogen (Up to 0.2) mg/dL Ur Leukocyte Esterase (Negative) Urine Glucose (Negative) mg/dL COVID-19 Source Nasopharynx SARS-CoV-2 (PCR) Positive A (Negative) Influenza Type A (PCR) Negative (Negative) Influenza Type B (PCR) Negative (Negative) RSV (PCR) Negative (Negative) 10/06/24 10/06/24 10/06/24 Range/Units 10:49 10:49 10:49 WBC (4.4-10.8) 10^3/uL RBC (3.93-5.22) 10^6/uL Hgb (11.2-15.7) g/dL Hct (36.0-46.0) % MCV (80-95) fL MCH (27.0-33.0) pg MCHC (32.0-36.0) % RDW (11.7-14.6) % Plt Count (130-400) 10^3/uL MPV (8.0-11.0) fL Immature Gran % % Neutrophils % % Lymphocytes % % Monocytes % % Eosinophils % % Basophils % % Nucleated RBC % (0.0-0.3) % Absolute Neutrophils (1.2-6.7) 10^3/uL Absolute Lymphocytes (1.2-3.4) 10^3/uL Absolute Monocytes (0.1-0.8) 10^3/uL Absolute Eosinophils (0.0-0.7) 10^3/uL Absolute Basophils (0.0-0.2) 10^3/uL VBG pH (7.31-7.41) VBG pCO2 (41-51) mmHg VBG pO2 mmHg VBG HCO3 (23-28) mmol/L VBG Total CO2 (24-29) mmol/L VBG O2 Saturation % VBG Base Excess (-2-3) mmol/L VBG Lactate (<or=2.0) mmol/L Sodium Potassium Chloride Carbon Dioxide Anion Gap BUN Creatinine Est GFR (CKD-EPI 2020) Glucose Calcium Magnesium Total Bilirubin AST ALT Alkaline Phosphatase Troponin I Cancelled NT-Pro-B Natriuret Pep Cancelled Total Protein Cancelled Albumin Cancelled Lipase Cancelled Cancelled Procalcitonin ng/mL TSH Cancelled Cancelled Free T4 (0.76-1.46) ng/dL Urine Color (Yellow) Urine Clarity (Clear) Urine pH (5-8) Ur Specific Gate (1.005-1.025) Urine Protein (Neg-Trace) mg/dL Urine Ketones (Negative) mg/dL Urine Blood (Negative) Urine Nitrite (Negative) Urine Bilirubin (Negative) Urine Urobilinogen (Up to 0.2) mg/dL Ur Leukocyte Esterase (Negative) Urine Glucose (Negative) mg/dL COVID-19 Source SARS-CoV-2 (PCR) (Negative) Influenza Type A (PCR) (Negative) Influenza Type B (PCR) (Negative) RSV (PCR) (Negative) 10/06/24 10/06/24 Range/Units 10:49 10:49 WBC 11.74 H (4.4-10.8) 10^3/uL RBC 3.64 L (3.93-5.22) 10^6/uL Hgb 11.8 (11.2-15.7) g/dL Hct 36.0 (36.0-46.0) % MCV 99 H (80-95) fL MCH 32.4 (27.0-33.0) pg MCHC 32.8 (32.0-36.0) % RDW 13.2 (11.7-14.6) % Plt Count 244 (130-400) 10^3/uL MPV 11.2 H (8.0-11.0) fL Immature Gran % 1.1 % Neutrophils % 72.8 % Lymphocytes % 14.7 % Monocytes % 10.2 % Eosinophils % 0.7 % Basophils % 0.5 % Nucleated RBC % 0.0 (0.0-0.3) % Absolute Neutrophils 8.55 H (1.2-6.7) 10^3/uL Absolute Lymphocytes 1.73 (1.2-3.4) 10^3/uL Absolute Monocytes 1.20 H (0.1-0.8) 10^3/uL Absolute Eosinophils 0.08 (0.0-0.7) 10^3/uL Absolute Basophils 0.06 (0.0-0.2) 10^3/uL VBG pH (7.31-7.41) VBG pCO2 (41-51) mmHg VBG pO2 mmHg VBG HCO3 (23-28) mmol/L VBG Total CO2 (24-29) mmol/L VBG O2 Saturation % VBG Base Excess (-2-3) mmol/L VBG Lactate (<or=2.0) mmol/L Sodium Cancelled Potassium Cancelled Chloride Cancelled Carbon Dioxide Cancelled Anion Gap Cancelled BUN Cancelled Creatinine Cancelled Est GFR (CKD-EPI 2020) Cancelled Glucose Cancelled Calcium Cancelled Magnesium Cancelled Cancelled Total Bilirubin Cancelled AST Cancelled ALT Cancelled Alkaline Phosphatase Cancelled Troponin I Cancelled NT-Pro-B Natriuret Pep Total Protein Albumin Lipase Procalcitonin ng/mL TSH Free T4 (0.76-1.46) ng/dL Urine Color (Yellow) Urine Clarity (Clear) Urine pH (5-8) Ur Specific Gate (1.005-1.025) Urine Protein (Neg-Trace) mg/dL Urine Ketones (Negative) mg/dL Urine Blood (Negative) Urine Nitrite (Negative) Urine Bilirubin (Negative) Urine Urobilinogen (Up to 0.2) mg/dL Ur Leukocyte Esterase (Negative) Urine Glucose (Negative) mg/dL COVID-19 Source SARS-CoV-2 (PCR) (Negative) Influenza Type A (PCR) (Negative) Influenza Type B (PCR) (Negative) RSV (PCR) (Negative) Intake and Output - 24 Hour Total 10/06/24 10:09 thru 10/06/24 13:43 Intake Total 1010 Output Total 580 Balance 430 Weight 96 lb Intake: IV 1010 Output: Urine 580 Other: # Voids 1 Falls Risk Assessment History of Falls No History 10/06/24 10:30 Contributing Factors Impairments 10/06/24 10:30 Ambulatory Aids Uses ambulatory device + 10/06/24 10:30 Tubes/Lines With any additional score 10/06/24 10:30 Gait Evaluation No gait disturbance 10/06/24 10:30 Cognition No cognitive impairment 10/06/24 10:30 Fall Total Score 53 10/06/24 10:30 Level of Risk High Risk 10/06/24 10:30 v v v v v v v v v Sending and/or Receiving Nurses: Please use comment section below to note any information pertinent to the patient hand-off not included above. Information / Comments: Report received from: Shila Khoury RN
--- NOTE | 2024-10-06 18:09 | W.PM.HP.N ---
Date of service: 10/06/24 Time of Service: 18:10 Assessment and Plan Assessment and plan (1) COPD exacerbation: Status: Acute Assessment and plan: Hypoxic in ED SPO2 ~ 85% on RA and short of breath. Methylprednisolone in ED CXR no acute abnormalities per radiologist RT consult Nebs IS Acapella O2 PRN SPO 2 > 88% WBC elevated Azithromycin 500 mg daily for antiinflammatory (2) COVID: Assessment and plan: s/p COVID diagnosed 09/11, treated with paxlovid ending 09/17. PCR still positive on admission and hypoxic. Dexamethasone - beneficial for first 30 d, decreases mortality with O2 requirement - will continue (3) Hyperthyroidism: Status: Chronic Assessment and plan: uncontrolled off methimazole therapy for unk period of time, when discharged from the hospital last week it was resumed, however she did not start taking it. Continue Tachy 140s TSH today 0.34 Restart (4) Tachycardia: Status: Acute Assessment and plan: Sinus tachycardia related to some mild dehydration, bronchodilators, and uncontrolled hyperthyroidism. Given 1000 ml of normal salinein ED, 500 ml normal saline bolus on arrival to the floor and then normal saline at 125 ml/h MIVF Resumed metoprolol, using levalbuterol, treating thyroid. TSH today 0.34 Telemetry In setting of hyperthyroidism (5) Smoker: Status: Acute Assessment and plan: nicotine prn, encourage cessation. 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 F/u PCP. (7) Ectatic thoracic aorta: Assessment and plan: outpatient f/u (8) Insomnia: Status: Acute Assessment and plan: chronic. Poor appetite Restart mirtazipine Discussed with patient and agreeable (9) DVT prophylaxis: Status: Deleted Assessment and plan: LMWH 30 mg - weight adjusted History of Present Illness History of Present Illness Chief Complaint: Difficulty breathing Narrative: The patient is an 79-year-old female who was recently discharged from the hospital on September 27, 2023, after being admitted for acute hypoxic respiratory failure in the setting of COVID-19. She was hospitalized starting on September 23, 2023, for a COPD exacerbation. During her hospitalization, she received levofloxacin for infection management and was discharged on a course of prednisone. At the time of discharge, her white blood cell count was elevated at 15,000, likely influenced by steroid use, and her thyroid function was abnormal with low TSH and elevated Free T4. An elevated MCV was also noted, and a repeat urinalysis showed mild hematuria. The patient presents today with a complaint of shortness of breath. She also reports having a foul taste in her mouth, which has made eating and drinking difficult. She believes she might be dehydrated as she has only urinated twice in the past two days. Her son is concerned about her increased work of breathing, which was improving when she was discharged from the hospital. She has been using albuterol at home for her COPD but is not on a steroid inhaler. The patient denies any chest pain, abdominal discomfort, nausea, or vomiting. There are no specific pain complaints at this time. Labs in the ED: WBC 11.74, Hgb 11.8, electrolytes unremarkable troponin negative, procalcitonin negative, lactic acid 1.7 Venous blood gas pH 7.46 CO2 41 HCO3 29 Chest xray as read by the radiologist no acute abnormality,. Patient was unable to keep SPO2 above 90% in the ED. Patient is admitted to the medical floor for further testing and treatment. Patient is a full code. Review of Systems All systems reviewed & are unremarkable except as noted in HPI and below PFSH All Active Problems (Updated 10/06/24 @ 15:47 by DENISE Tellez) COVID (Acute) Respiratory failure (Acute) Insomnia (Acute) Community acquired pneumonia (Acute) Smoker (Acute) Tachycardia (Acute) Hyperthyroidism (Chronic) COPD exacerbation (Acute) Shortness of breath (Acute) Acute UTI (Acute) Cough (Acute) Fatigue (Acute) Anorexia (Acute) Hyperlipidemia (Acute) Hypertension (Chronic) Medical History (Updated 10/06/24 @ 15:47 by DENISE Tellez) Ectatic thoracic aorta 4cm Subcutaneous mass of back COVID Surgical History S/P appendectomy Family History Son Diabetes Social History Smoking/Tobacco Use Status: Current every day Tobacco Type: cigarettes Years smoked: 60 Smoking risk assessment performed?: Yes Alcohol Intake: former Substance use type: does not use Housing: house Do you feel safe at home: Yes Do you feel safe in your relationship?: Yes Additional Social history: Lives with son and 3 kids in [facility] Allergies and Home Medications Allergies Allergy/AdvReac Type Severity Reaction Status Date / Time aspirin Allergy Unknown Unverified 10/06/24 10:20 bee venom protein (honey bee) Allergy Anaphylaxis Unverified 10/06/24 10:20 Penicillins Allergy Other (See Unverified 10/06/24 10:20 Comment) Home Medications ?Medication ?Instructions ?Recorded ?Confirmed ?Type calcium carbonate 600 mg PO TID 04/30/22 10/06/24 History lisinopril 5 mg tablet 2.5 mg PO DAILY 04/30/22 10/06/24 History methimazole 5 mg tablet 2.5 mg PO DAILY 04/30/22 10/06/24 History metoprolol tartrate 100 mg tablet 50 mg PO BID 04/30/22 10/06/24 History multivitamin 1 tab PO DAILY 04/30/22 10/06/24 History melatonin 3 mg tablet 3 mg PO HS #0 tabs 05/04/22 10/06/24 Rx ipratropium 20 mcg-albuterol 100 1 puff inhalation Q6H PRN 05/26/23 10/06/24 Rx mcg/actuation mist for inhalation shortness of breath or wheezing #4 (Combivent Respimat) grams mirtazapine 15 mg tablet 7.5 mg (1/2 x 15 mg) PO HS #30 tabs 09/27/24 10/06/24 Rx albuterol sulfate 90 mcg/actuation 2 puff inhalation Q6H 10/06/24 10/06/24 History aerosol inhaler (Ventolin HFA) Exam Const General: cooperative and no acute distress Orientation: alert Other: awake, alert, oriented, skin thick, dry, wrinkled, and leathery HENMT Head: normal to inspection Ears: external ears normal General nose exam: external nose normal Mouth: moist mucous membranes Eyes General: appearance normal, both eyes and all related structures Neck Neck: normal visual inspection Resp Auscultation: wheezes Cardio Jugular venous pressure: no JVD Rate: regular rate Skin General skin exam: no rashes or lesions noted, turgor decreased and other (thick, dry, wrinkled, and leathery ) Neuro General: patient alert Extrem General: normal to inspection Psych Mental Status: mental status grossly normal Results Labs 10/06/24 10:49 10/06/24 14:30 Labs: Laboratory Results - last 24 hr 10/06/24 10/06/24 10/06/24 10:49 10:49 10:49 WBC 11.74 H RBC 3.64 L Hgb 11.8 Hct 36.0 MCV 99 H MCH 32.4 MCHC 32.8 RDW 13.2 Plt Count 244 MPV 11.2 H Immature Gran % 1.1 Neutrophils % 72.8 Lymphocytes % 14.7 Monocytes % 10.2 Eosinophils % 0.7 Basophils % 0.5 Nucleated RBC % 0.0 Absolute Neutrophils 8.55 H Absolute Lymphocytes 1.73 Absolute Monocytes 1.20 H Absolute Eosinophils 0.08 Absolute Basophils 0.06 VBG pH VBG pCO2 VBG pO2 VBG HCO3 VBG Total CO2 VBG O2 Saturation VBG Base Excess VBG Lactate Sodium Cancelled Potassium Cancelled Chloride Cancelled Carbon Dioxide Cancelled Anion Gap Cancelled BUN Cancelled Creatinine Cancelled Est GFR (CKD-EPI 2020) Cancelled Glucose Cancelled Calcium Cancelled Magnesium Cancelled Cancelled Total Bilirubin Cancelled AST Cancelled ALT Cancelled Alkaline Phosphatase Cancelled Troponin I Cancelled Cancelled NT-Pro-B Natriuret Pep Cancelled Total Protein Cancelled Albumin Cancelled Lipase Cancelled Procalcitonin TSH Free T4 Urine Color Urine Clarity Urine pH Ur Specific [place] Urine Protein Urine Ketones Urine Blood Urine Nitrite Urine Bilirubin Urine Urobilinogen Ur Leukocyte Esterase Urine Glucose COVID-19 Source SARS-CoV-2 (PCR) Influenza Type A (PCR) Influenza Type B (PCR) RSV (PCR) 10/06/24 10/06/24 10/06/24 10:49 10:49 11:30 WBC RBC Hgb Hct MCV MCH MCHC RDW Plt Count MPV Immature Gran % Neutrophils % Lymphocytes % Monocytes % Eosinophils % Basophils % Nucleated RBC % Absolute Neutrophils Absolute Lymphocytes Absolute Monocytes Absolute Eosinophils Absolute Basophils VBG pH VBG pCO2 VBG pO2 VBG HCO3 VBG Total CO2 VBG O2 Saturation VBG Base Excess VBG Lactate Sodium Potassium Chloride Carbon Dioxide Anion Gap BUN Creatinine Est GFR (CKD-EPI 2020) Glucose Calcium Magnesium Total Bilirubin AST ALT Alkaline Phosphatase Troponin I NT-Pro-B Natriuret Pep Total Protein Albumin Lipase Cancelled Procalcitonin TSH Cancelled Cancelled Free T4 Urine Color Urine Clarity Urine pH Ur Specific [place] Urine Protein Urine Ketones Urine Blood Urine Nitrite Urine Bilirubin Urine Urobilinogen Ur Leukocyte Esterase Urine Glucose COVID-19 Source Nasopharynx SARS-CoV-2 (PCR) Positive A Influenza Type A (PCR) Negative Influenza Type B (PCR) Negative RSV (PCR) Negative 10/06/24 10/06/24 10/06/24 11:40 12:33 13:39 WBC RBC Hgb Hct MCV MCH MCHC RDW Plt Count MPV Immature Gran % Neutrophils % Lymphocytes % Monocytes % Eosinophils % Basophils % Nucleated RBC % Absolute Neutrophils Absolute Lymphocytes Absolute Monocytes Absolute Eosinophils Absolute Basophils VBG pH VBG pCO2 VBG pO2 VBG HCO3 VBG Total CO2 VBG O2 Saturation VBG Base Excess VBG Lactate Sodium 136 Potassium 4.4 Chloride 100 Carbon Dioxide 33.4 H Anion Gap 2.6 L BUN 16 Creatinine 0.9 Est GFR (CKD-EPI 2020) 64.23 Glucose 77 Calcium 9.1 Magnesium 2.2 Total Bilirubin 0.74 AST 17 ALT 23 Alkaline Phosphatase 68 Troponin I 5 5 NT-Pro-B Natriuret Pep 334 H Total Protein 6.6 Albumin 2.4 L Lipase 25 Procalcitonin TSH 0.34 L Free T4 1.37 Urine Color Yellow Urine Clarity Clear Urine pH 7.0 Ur Specific [place] 1.015 Urine Protein Negative Urine Ketones Negative Urine Blood Negative Urine Nitrite Negative Urine Bilirubin Negative Urine Urobilinogen 0.2 Ur Leukocyte Esterase Negative Urine Glucose Negative COVID-19 Source SARS-CoV-2 (PCR) Influenza Type A (PCR) Influenza Type B (PCR) RSV (PCR) 10/06/24 10/06/24 14:30 15:18 WBC RBC Hgb Hct MCV MCH MCHC RDW Plt Count MPV Immature Gran % Neutrophils % Lymphocytes % Monocytes % Eosinophils % Basophils % Nucleated RBC % Absolute Neutrophils Absolute Lymphocytes Absolute Monocytes Absolute Eosinophils Absolute Basophils VBG pH 7.46 H VBG pCO2 41 VBG pO2 42 VBG HCO3 29 H VBG Total CO2 27 VBG O2 Saturation 79 VBG Base Excess 5 H VBG Lactate 1.7 Sodium 136 Potassium 4.3 Chloride 102 Carbon Dioxide 30.7 Anion Gap 3.3 BUN 14 Creatinine 0.8 Est GFR (CKD-EPI 2020) 73.98 Glucose 121 H Calcium 9.0 Magnesium Total Bilirubin AST ALT Alkaline Phosphatase Troponin I 6 NT-Pro-B Natriuret Pep Total Protein Albumin Lipase Procalcitonin < 0.10 TSH Free T4 Urine Color Urine Clarity Urine pH Ur Specific [place] Urine Protein Urine Ketones Urine Blood Urine Nitrite Urine Bilirubin Urine Urobilinogen Ur Leukocyte Esterase Urine Glucose COVID-19 Source SARS-CoV-2 (PCR) Influenza Type A (PCR) Influenza Type B (PCR) RSV (PCR) Last Vital Signs Temp 36.8 C 10/06/24 16:54 Pulse 142 H 10/06/24 16:54 Resp 24 10/06/24 16:54 BP 92/56 L 10/06/24 16:54 Pulse Ox 95 10/06/24 16:54 Time Spent Time spent with Patient: 40-54 minutes Time was spent: preparing to see the patient(eg.review tests), obtaining and/or reviewing separately otained hiistory, ordering medications,tests, procedures, referring, communicating with other health child caregiver, indepentently interpreting results, counseling the patient and care coordination
[2024-10-06] MEDS: Levalbuterol HFA 15 GM INH 2 PUFF IH (18:16)
[2024-10-06] MEDS: Metoprolol 50 MG TAB PO (18:23)
[2024-10-06] MEDS: Enoxaparin 30 MG/0.3 ML SYR SC (18:23)
[2024-10-06] MEDS: Normal Saline 500 ML IV (18:23)
[2024-10-06] MEDS: Mirtazapine 15 MG TAB 7.5 MG PO (20:35)
[2024-10-06] MEDS: Calcium Carbonate 1.5 GM TAB PO (20:35)
[2024-10-06] MEDS: guaiFENesin 600 MG TABCR 1200 MG PO (20:35)
[2024-10-06] MEDS: Normal Saline 1,000 ML 125 ML IV (20:37)
[2024-10-06] MEDS: Azithromycin 500 MG VIAL (20:44)
[2024-10-07] VITALS (9 sets, daily range): BP systolic 115–146; BP diastolic 51–75; PULSE 71–89; RESP 16–20; TEMP 36.1–36.6; O2SAT 92–94
[2024-10-07] MEDS: Levalbuterol HFA 15 GM INH 2 PUFF IH ×3 (00:20→22:02)
[2024-10-07 06:57] LABS: Abs Immature Grans 0.16 10^3/uL (0.0-0.06); Absolute Monocyte Count 0.48 10^3/uL (0.1-0.8); Absolute Neutrophil Count 12.74 10^3/uL (1.2-6.7); Basophils % 0.1 %; HCT 31.7 % (36.0-46.0); HGB 10.3 g/dL (11.2-15.7); Immature Grans % 1.1 %; Lymphocytes % 9.8 %; MCH 32.5 pg (27.0-33.0); MCHC 32.5 % (32.0-36.0); MCV 100 fL (80-95); MPV 10.7 fL (8.0-11.0); Monocytes % 3.2 %; Neutrophils % 85.8 %; Platelet Count 231 10^3/uL (130-400); RBC 3.17 10^6/uL (3.93-5.22); RDW-SD 47.5 fL; WBC 14.85 10^3/uL (4.4-10.8)
[2024-10-07 07:00] LABS: Absolute Basophil Count 0.01 10^3/uL (0.0-0.2); Absolute Lymphocyte Count 1.46 10^3/uL (1.2-3.4)
[2024-10-07 07:14] LABS: Anion Gap 5.3 mmol/L (3-11); BUN 15 mg/dL (7-18); CO2 28.7 mmol/L (21.0-32.0); CREATININE 0.9 mg/dL (0.55-1.02); Calcium 8.5 mg/dL (8.5-10.1); Chloride 108 mmol/L (98-107); Estimated GFR 64.23 (mL/min/1.73m2); Glucose 128 mg/dL (74-106); Potassium 4.6 mmol/L (3.5-5.1); Sodium 142 mmol/L (136-145)
--- NOTE | 2024-10-07 08:04 | INITIAL_ITS ---
Date of service: 10/07/24 Time of Service: 08:05 Care Management Initial Assmt Initial Assessment Reason for Hospitalization: Covid Functional Status/Living Situation Patient Presentation: Julia is on Covid precautions so CM was unable to meet with her in person. CM was unable to connect with her by phone and after speaking with nursing learned that she has been anxious this morning. Arlen was assessed by CM on 09/24/24: Per report, Julia lives in a single family home in [place] with her son Shiva and his 2 adult children. Shiva's son has severe ADHD and cannot work and his daughter has hypothyroidism with many associated issues including her eyes and chronic back pain. She is unable to work as well. Julia did state that her grandchildren are very helpful at home and care for the animals (2 cats and a dog) and help with groceries, housework etc. Arlen is independent with ADLs but explained that she uses disposable cleaning cloths for bathing and dry shampoo for her hair as she is unable to safely enter or exit her tub. She uses a walker for ambulatory assistance all the time. 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 Town of Residence: [place] Resides with: Child (Son Shiva) Significant Other/Family: Local Natural Supports: Employment Status: Retired Instrumental Activities of Daily Living (ADLs): Independent Medications Medication Management: No Issues/Barriers identified Physical Functioning/Mobility Assistive Device: Walker Advance Directives Advance Directives: Do you have an Advance Directive: Y 04/30/22 20:58 AD On File at [facility]: N 04/30/22 21:19 Date Asked 10/06/24 10/06/24 10:23 AD Date Reviewed COLST On File at [facility] COLST Date Scanned Code Status Resuscitation Status Full Code Portal Pt does not currently have a portal and education provided: Yes Insurance Coverage/Financial Issues Insurance: BC/BS Medicare Advantage Care Team Visit Care Team Role Provider Type Dilma Dubose Primary Care Provider [employer] DENISE Tellez Emergency Provider [employer] Ba Barber MD Admit Provider [facility] STAFF PHYSICIAN Attending Provider Discharge Potential Discharge Needs: PCP F/U Appt Anticipated Barriers to Discharge: Medical Status Patient/Family Education Needs: Review discharge instructions, discuss Ask Me Three Transportation: Private vehicle Plan: PT recommends home with New [facility] PT. Anticipate, Julia will return home, with new home health services (if agreeable) when medically cleared for discharge. She will follow up with her PCP and plan of care and transport with family. CM will continue to follow. Social Determinants of Health Screening Social Determinants of Health last assessed: 10/08/24 Will the Patient Participate in the Screening?: Yes Do you worry about having a steady place to live?: no Problems where you live: no known problems In the past 12 months, have you had to go without electric, gas, oil or water in your home?: no Have you or anyone in your house had to go without enough food to eat?: no Has lack of transportation kept you from medical appointments or from doing things needed for daily living?: no Has anyone in your life made you feel unsafe or unsupported?: no How hard is it for you to pay for the very basics like food, housing, medical care, and heating? Would you say it is:: Not hard at all Do you want help finding or keeping work or a job?: I do not need or want help If for any reason you need help with day-to-day activities such as bathing, preparing meals, shopping, managing finances, etc., do you get the help you need?: I don?t need any help How often do you feel lonely or isolated from those around you?: Never Do you speak a language other than Thai at home?: No Does the patient want assistance with any of the above?: No PFSH All Active Problems (Updated 10/06/24 @ 15:47 by DENISE Tellez) COVID (Acute) Respiratory failure (Acute) Insomnia (Acute) Community acquired pneumonia (Acute) Smoker (Acute) Tachycardia (Acute) Hyperthyroidism (Chronic) COPD exacerbation (Acute) Shortness of breath (Acute) Acute UTI (Acute) Cough (Acute) Fatigue (Acute) Anorexia (Acute) Hyperlipidemia (Acute) Hypertension (Chronic) Medical History (Updated 10/06/24 @ 15:47 by DENISE Tellez) Ectatic thoracic aorta 4cm Subcutaneous mass of back COVID Surgical History S/P appendectomy Family History Son Diabetes Social History Smoking/Tobacco Use Status: Former Tobacco Use Quit Date: 09/23/24 Tobacco: How many years used: 60 Smoking risk assessment performed?: Yes Alcohol Intake: former Substance use type: does not use Housing: house Do you feel safe at home: Yes Do you feel safe in your relationship?: Yes Additional Social history: Lives with son and 3 kids in [place] Readmission Within the Past 30 Days Yes or No: Yes Date of First Admission Date of 1st Admission: 09/24/24 Date of this Admission Date of Admission: 10/07/24 This admission was: Through ED If the patient had a VNA ordered Did the patient have a VNA order?: No Ask the Care Team Members: What do you think caused the patient to be readmitted: Covered in her H&P from 10/06/24 written by Arlen Rausch NP, The patient is an 79-year-old female who was recently discharged from the hospital on September 27, 2023, after being admitted for acute hypoxic respiratory failure in the setting of COVID-19. She was hospitalized starting on September 23, 2023, for a COPD exacerbation. During her hospitalization, she received levofloxacin for infection management and was discharged on a course of prednisone. At the time of discharge, her white blood cell count was elevated at 15,000, likely influenced by steroid use, and her thyroid function was abnormal with low TSH and elevated Free T4. An elevated MCV was also noted, and a repeat urinalysis showed mild hematuria. The patient presents today with a complaint of shortness of breath. She also reports having a foul taste in her mouth, which has made eating and drinking difficult. She believes she might be dehydrated as she has only urinated twice in the past two days. Her son is concerned about her increased work of breathing, which was improving when she was discharged from the hospital. She has been using albuterol at home for her COPD but is not on a steroid inhaler. The patient denies any chest pain, abdominal discomfort, nausea, or vomiting. There are no specific pain complaints at this time. Labs in the ED: WBC 11.74, Hgb 11.8, electrolytes unremarkable troponin negative, procalcitonin negative, lactic acid 1.7 Venous blood gas pH 7.46 CO2 41 HCO3 29 Chest xray as read by the radiologist no acute abnormality,. Patient was unable to keep SPO2 above 90% in the ED. Patient is admitted to the medical floor for further testing and treatment. Patient is a full code. ED visits How many ED visits in the past 12 months: 3
[2024-10-07] MEDS: guaiFENesin 600 MG TABCR 1200 MG PO ×2 (08:20→20:56)
[2024-10-07] MEDS: Multivitamin TAB 1 TAB PO (08:20)
[2024-10-07] MEDS: Calcium Carbonate 1.5 GM TAB PO ×3 (08:20→20:55)
[2024-10-07] MEDS: Dexamethasone 10 MG/ML VIAL 6 MG IVP (08:20)
[2024-10-07] MEDS: Metoprolol 50 MG TAB PO ×2 (08:21→20:56)
[2024-10-07] MEDS: methIMAzole 5 MG TAB 2.5 MG PO (08:21)
[2024-10-07] MEDS: Lisinopril 5 MG TAB 2.5 MG PO (08:21)
[2024-10-07] MEDS: Normal Saline 1,000 ML 125 ML IV (08:25)
--- NOTE | 2024-10-07 10:13 | W.PM.PROGNOT ---
Date of Service Date of service: 10/07/24 Time of Service: 10:13 Assessment and Plan Assessment and plan (1) COPD exacerbation: Status: Acute Assessment and plan: Hypoxic in ED SPO2 ~ 85% on RA and short of breath. Now on RA with sat > 92% Continue Dexamethasone CXR was negative RT consult completed Continue Nebs, IS and acapella O2 PRN SPO 2 > 88% WBC elevated at 14 from 11 on admission Continue Azithromycin 500 mg daily for antiinflammatory aspect (2) COVID: Assessment and plan: s/p COVID diagnosed 09/11 , positive on 09/23 and this admission , treated with paxlovid ending 09/17. PCR still positive on admission and hypoxic.- PCR can be positive X 30 days Continue dexamethasone - beneficial for first 30 d, decreases mortality with O2 requirement - will continue (3) Hyperthyroidism: Status: Chronic Assessment and plan: Patient had stopped taking her methimazole but when discharged from the hospital on 09/27/24 , it was resumed, however she did not taking it. Continue methimazole On admission Tachy 140s - resolved TSH today 0.34- f/u as per PCP outpatient (4) Tachycardia: Status: Acute Assessment and plan: Resolved - On admit Sinus tachycardia related to some mild dehydration, bronchodilators, and uncontrolled hyperthyroidism. 1 l. Bolus crystalloid in ED- 500 NS IV on arrival to floor then IVF maintenance Cr 0.9 , BUN 15- tolerating PO- Will d//c IVF Given 1000 ml of normal salinein ED, 500 ml normal saline bolus on arrival to the floor and then normal saline at 125 ml/h MIVF Continue metoprolol, using levalbuterol, methimazole Ongoing Telemetry In setting of hyperthyroidism - was not taking RX at home (5) Smoker: Status: Acute Assessment and plan: NRT PRN Continue to encourage cessation. 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 (7) Ectatic thoracic aorta: Assessment and plan: outpatient f/u,no evidence of dissection or pericardial effusion on CT from 09/23/24 (8) Insomnia: Status: Acute Assessment and plan: Chronic insomnia and poor appetite Continue mirtazipine patient was agreeable when discussed with admitting provider PRN melatonin (9) DVT prophylaxis: Status: Deleted Assessment and plan: Continue -LMWH 30 mg - weight adjusted Discussed with Dr. Moffett Subjective Subjective Patient reports: no new complaints, feels better, tolerating liquids well, tolerating a regular diet, voiding w/o difficulty and no bowel movement; denies diarrhea, vomiting, shortness of breath or fever Exam Narrative Exam Narrative: Constitutional The patient is sitting in chair/ lying in bed comfortable and cooperative during the interview. The patient is well groomed without acute distress and has average body habitus/is obese/ is thin. HENMT: Head is atraumatic, normocephalic, no lymphadenopathy. Facial structures with normal appearance Eyes: Well aligned, intact ROM Neck: Normal ROM, no meningeal signs Neuro:alert and oriented to self, person, place time and situation. No neurological focal deficit, PERRLA Chest:Chest is symmetrical and normal appearance Resp: Normal respiratory pattern, speaks in full sentences, unlabored breathing, clear lung bilaterally Cardio: regular rhythm, S1, S2, no murmur, capillary refill<3 sec., bilateral radial and dorsalis pedis pulses are positive, palpable GI: Abdomen is not distended, soft and non tender, bowel sounds are present : Negative Costovertebral angle tenderness, no bladder distension Back/spine/Pelvis: No back tenderness, normal alignment Integumentary: No skin lesions or rash Extremities: strength 5/5 to bilateral lower and upper extremities Psych: RASS 0, congruent mood and normal affect. Objective Last Vital Signs Temp 36.1 C L 10/07/24 08:12 Pulse 82 10/07/24 08:12 Resp 16 10/07/24 08:12 BP 117/75 10/07/24 08:12 Pulse Ox 94 10/07/24 08:12 Laboratory Results - last 24 hr 10/06/24 10/06/24 10/06/24 10:49 10:49 10:49 WBC 11.74 H RBC 3.64 L Hgb 11.8 Hct 36.0 MCV 99 H MCH 32.4 MCHC 32.8 RDW 13.2 Plt Count 244 MPV 11.2 H Immature Gran % 1.1 Neutrophils % 72.8 Lymphocytes % 14.7 Monocytes % 10.2 Eosinophils % 0.7 Basophils % 0.5 Nucleated RBC % 0.0 Absolute Neutrophils 8.55 H Absolute Lymphocytes 1.73 Absolute Monocytes 1.20 H Absolute Eosinophils 0.08 Absolute Basophils 0.06 VBG pH VBG pCO2 VBG pO2 VBG HCO3 VBG Total CO2 VBG O2 Saturation VBG Base Excess VBG Lactate Sodium Cancelled Potassium Cancelled Chloride Cancelled Carbon Dioxide Cancelled Anion Gap Cancelled BUN Cancelled Creatinine Cancelled Est GFR (CKD-EPI 2020) Cancelled Glucose Cancelled Calcium Cancelled Magnesium Cancelled Cancelled Total Bilirubin Cancelled AST Cancelled ALT Cancelled Alkaline Phosphatase Cancelled Troponin I Cancelled Cancelled NT-Pro-B Natriuret Pep Cancelled Total Protein Cancelled Albumin Cancelled Lipase Cancelled Procalcitonin TSH Free T4 Urine Color Urine Clarity Urine pH Ur Specific [place] Urine Protein Urine Ketones Urine Blood Urine Nitrite Urine Bilirubin Urine Urobilinogen Ur Leukocyte Esterase Urine Glucose COVID-19 Source SARS-CoV-2 (PCR) Influenza Type A (PCR) Influenza Type B (PCR) RSV (PCR) 10/06/24 10/06/24 10/06/24 10:49 10:49 11:30 WBC RBC Hgb Hct MCV MCH MCHC RDW Plt Count MPV Immature Gran % Neutrophils % Lymphocytes % Monocytes % Eosinophils % Basophils % Nucleated RBC % Absolute Neutrophils Absolute Lymphocytes Absolute Monocytes Absolute Eosinophils Absolute Basophils VBG pH VBG pCO2 VBG pO2 VBG HCO3 VBG Total CO2 VBG O2 Saturation VBG Base Excess VBG Lactate Sodium Potassium Chloride Carbon Dioxide Anion Gap BUN Creatinine Est GFR (CKD-EPI 2020) Glucose Calcium Magnesium Total Bilirubin AST ALT Alkaline Phosphatase Troponin I NT-Pro-B Natriuret Pep Total Protein Albumin Lipase Cancelled Procalcitonin TSH Cancelled Cancelled Free T4 Urine Color Urine Clarity Urine pH Ur Specific [place] Urine Protein Urine Ketones Urine Blood Urine Nitrite Urine Bilirubin Urine Urobilinogen Ur Leukocyte Esterase Urine Glucose COVID-19 Source Nasopharynx SARS-CoV-2 (PCR) Positive A Influenza Type A (PCR) Negative Influenza Type B (PCR) Negative RSV (PCR) Negative 10/06/24 10/06/24 10/06/24 11:40 12:33 13:39 WBC RBC Hgb Hct MCV MCH MCHC RDW Plt Count MPV Immature Gran % Neutrophils % Lymphocytes % Monocytes % Eosinophils % Basophils % Nucleated RBC % Absolute Neutrophils Absolute Lymphocytes Absolute Monocytes Absolute Eosinophils Absolute Basophils VBG pH VBG pCO2 VBG pO2 VBG HCO3 VBG Total CO2 VBG O2 Saturation VBG Base Excess VBG Lactate Sodium 136 Potassium 4.4 Chloride 100 Carbon Dioxide 33.4 H Anion Gap 2.6 L BUN 16 Creatinine 0.9 Est GFR (CKD-EPI 2020) 64.23 Glucose 77 Calcium 9.1 Magnesium 2.2 Total Bilirubin 0.74 AST 17 ALT 23 Alkaline Phosphatase 68 Troponin I 5 5 NT-Pro-B Natriuret Pep 334 H Total Protein 6.6 Albumin 2.4 L Lipase 25 Procalcitonin TSH 0.34 L Free T4 1.37 Urine Color Yellow Urine Clarity Clear Urine pH 7.0 Ur Specific [place] 1.015 Urine Protein Negative Urine Ketones Negative Urine Blood Negative Urine Nitrite Negative Urine Bilirubin Negative Urine Urobilinogen 0.2 Ur Leukocyte Esterase Negative Urine Glucose Negative COVID-19 Source SARS-CoV-2 (PCR) Influenza Type A (PCR) Influenza Type B (PCR) RSV (PCR) 10/06/24 10/06/24 10/07/24 14:30 15:18 06:42 WBC 14.85 H RBC 3.17 L Hgb 10.3 L Hct 31.7 L MCV 100 H MCH 32.5 MCHC 32.5 RDW 13.0 Plt Count 231 MPV 10.7 Immature Gran % 1.1 Neutrophils % 85.8 Lymphocytes % 9.8 Monocytes % 3.2 Eosinophils % 0.0 Basophils % 0.1 Nucleated RBC % 0.0 Absolute Neutrophils 12.74 H Absolute Lymphocytes 1.46 Absolute Monocytes 0.48 Absolute Eosinophils 0.00 Absolute Basophils 0.01 VBG pH 7.46 H VBG pCO2 41 VBG pO2 42 VBG HCO3 29 H VBG Total CO2 27 VBG O2 Saturation 79 VBG Base Excess 5 H VBG Lactate 1.7 Sodium 136 142 Potassium 4.3 4.6 Chloride 102 108 H Carbon Dioxide 30.7 28.7 Anion Gap 3.3 5.3 BUN 14 15 Creatinine 0.8 0.9 Est GFR (CKD-EPI 2020) 73.98 64.23 Glucose 121 H 128 H Calcium 9.0 8.5 Magnesium Total Bilirubin AST ALT Alkaline Phosphatase Troponin I 6 NT-Pro-B Natriuret Pep Total Protein Albumin Lipase Procalcitonin < 0.10 TSH Free T4 Urine Color Urine Clarity Urine pH Ur Specific [place] Urine Protein Urine Ketones Urine Blood Urine Nitrite Urine Bilirubin Urine Urobilinogen Ur Leukocyte Esterase Urine Glucose COVID-19 Source SARS-CoV-2 (PCR) Influenza Type A (PCR) Influenza Type B (PCR) RSV (PCR) Time Spent with Patient Time Spent with Patient: >50 minutes Time was spent: preparing to see the patient(eg.review tests), obtaining and/or reviewing separately otained hiistory, ordering medications,tests, procedures, referring, communicating with other health adult care manager, indepentently interpreting results, counseling the patient and care coordination
--- NOTE | 2024-10-07 11:53 | RESPIRATORY ---
RT Initial Evalutation/Assessment Start: 10/06/24 17:43 Freq: .q shift and prn Status: Active Protocol: Document 10/07/24 11:43 (Rec: 10/07/24 11:53 [id number]) RT Assessment Pulmonary History Pulmonary History COPD Smoking History Smoking/Tobacco Use Status Former Tobacco Use Tobacco: How many years used 60 Quit Date 09/23/24 Tobacco Type cigarettes Cigarettes per Day 10 Years smoked 60 Smoking packs per day 0.5 OXYGEN HISTORY: Supplemental O2 At Rest 0 With Exertion 0 CPAP Can use home machine N/A BIPAP Can you home machine N/A Trilogy/AVAPS Can use home machine N/A DME/Compliance DME N/A Current Respiratory Symptoms Current Respiratory Symptoms Cough Activity Activity Level Pt at baseline uses a walker, is able to sponge bath herself and wash hair. Respiratory Breath Sounds Breath Sounds Clear Response No change Pulse Rate <100 Respiratory Rate <18 Respiratory Therapy Score Total 0 Assessment and Plan RT Treatment Protocol Lung Expansion Therapy Protocol,Bronchial Hygiene Therapy Protocol,No RT treatment protocols required at this time, re-consult if change Note Pt scored a 0. Pt is not requiring O2 at this point in time. Pt is able to hold conversation without desaturating in SpO2. RT did educate pt on IS and acapella devices. Pt states that she does not notice ay difference in her breathing with the current Q6H Xopenex inhaler regimen.
--- NOTE | 2024-10-07 15:04 | IN_ITS ---
Date of service: 10/07/24 Time of Service: 14:45 PT Notes Visit Reasons: Acute hypoxic respiratory failure, Covid Inpatient Physical Therapy Evaluation Date: October 07, 2024 Referring Doctor: Lizzette Morrison PT Orders: PT CONSULT: Safety consult for DC Precautions: Patient Profile/Admitting Diagnosis: Julia is a 79 year old female who was recently diagnosed with COVID-19 four weeks prior to arrival. She was admitted most recently at our facility for her COPD exacerbation and was discharged on 09/26/2024. She states that since that time, she has had a foul taste in her mouth and difficulty drinking and eating secondary to that. She feels like she might be dehydrated and has only urinated twice in the past 2 days. Admitted secondary to hypoxic respiratory failure. PMHX: (Updated 10/06/24 @ 15:47 by DENISE Tellez) COVID (Acute) Respiratory failure (Acute) Insomnia (Acute) Community acquired pneumonia (Acute) Smoker (Acute) Tachycardia (Acute) Hyperthyroidism (Chronic) COPD exacerbation (Acute) Shortness of breath (Acute) Acute UTI (Acute) Cough (Acute) Fatigue (Acute) Anorexia (Acute) Hyperlipidemia (Acute) Hypertension (Chronic) Medical History (Updated 10/06/24 @ 15:47 by DENISE Tellez) Ectatic thoracic [id number] Subcutaneous mass of back COVID Surgical History S/P appendectomy Social History/Home Situation: Lives with son, grandson, and granddaughter in a private home with one step to enter through the garage. Patient is modified independent with 4WW at home. Family takes care of meals, grocery shopping, and laundry for patient. passed 12 years ago. Equipment Owned/DME: 4WW Subjective: Notes she is tired however is agreeable to PT consult. Was experiencing some increased chest pain earlier. Now has dissipated. Objective: General Observation: Subcutaneous mass on back. Thoracic kyphosis. Mental Status: Alert and oriented as to person, place, time, and purpose. Able to pay attention, focus, and respond appropriately. Pain: None reported throughout session Vital Signs: Closely monitored by nursing staff ROM: Right Upper Extremity: Shoulder Flexion allows up to about 100 degrees only. Shoulder abduction allows up to about 80 degrees only. Elbow flexion WFL. Wrist flexion WFL. Functional opening and closing of hand WFL. Left Upper Extremity: Shoulder Flexion allows up to bout 90 degrees only. Shoulder abduction allows up to about 80 degrees only. Elbow flexion WFL. Wrist flexion WFL. Functional opening and closing of hand WFL. Right Lower Extremity: Hip flexion WFL. Hip abduction WFL. Knee flexion WFL. Ankle dorsiflexion WFL. Ankle plantarflexion WFL. Left Lower Extremity: Hip in external rotation and abduction, unable to actively internal rotate at the hip. Hip flexion allows up to 90 degrees. Knee flexion 30 degrees to 90 degrees. Ankle dorsiflexion absent. Ankle plantarflexion WFL. Strength: Right Upper Extremity: Shoulder flexors 3+/5. Shoulder abductors 3+/5. Elbow flexors 4-/5. Elbow extensors 4-/5. Manager Wind strong. Left Upper Extremity: Shoulder flexors 3+/5. Shoulder abductors 3+/5. Elbow flexors 4-/5. Elbow extensors 4-/5. Manager Wind strong. Right Lower Extremity: Hip flexors 4-/5. Hip abductors 4-/5. Knee flexors 4-/5. Knee extensors 4-/5. Ankle dorsiflexors 4-/5. Ankle plantarflexors 4-/5. Left Lower Extremity: Hip flexors 3-/5. Hip abductors 3-/5. Knee flexors 3/5. Knee extensors 3-/5. Ankle dorsiflexors 2-/5. Ankle plantarflexors 4-/5. Bed Mobility/Transfers: Minimal cueing provided for use of B hands as needed for support, movement sequence, AD management, and posture to reduce fall risk and minimize pain report Supine to sit stand by assist with HOB at 30 degrees Sit to supine stand by assist Sit to stand contact guard assist with FWW Stand to sit contact guard assist with FWW Gait: Facilitated safe and correct performance of level surface ambulation covering a distance of 50 feet using front wheeled walker with contact-guard assist assist provided. Left hip in external rotation throughout with toe drag L LE. Patient indicated that she has walked like this for the past two years since she fell and injuried her left leg Balance: Static Sitting: Normal Dynamic Sitting: Good Static Standing: Fair Dynamic Standing: Fair Special Tests: Mobility Limitations Standardized Measure [employer] AM-PAC 6 clicks Basic Mobility Inpatient Short Form: Raw Score: 20 CMS Score: 36% deficit Informed Consent/Education: Patient was instructed in purpose of PT consult and plan of care. Agreeable to proceed with established PT POC to achieve personal goals. Assessment: Julia is a 79 year old female admitted secondary to hypoxic respiratory failure. Demonstrates chronic gait deviation and thoracic kyphosis, along with weakness from COPD exacerbation, increase risk for falls. Patient presents with clinical signs and symptoms consistent with current/admitting diagnoses that have resulted to mobility limitations, gait instability, generalized weakness, and overall ADL decline as demonstrated by the following impairment level findings: 1. Decreased strength to B UE/LE major muscle groups 2. Impaired sitting/standing balance 3. Impaired activity tolerance 4. Limitation of joint range of motion in R hip 5. Fatigue 6. Swelling in L LE Impairments are contributing to the following functional limitations: 1. Decline in bed mobility skills 2. Decline in transfer skills 3. Difficulty with ambulation without assistive device and physical assistance 4. Increased completion time for mobility ADL performance 5. Increased risk for falls 6. Difficulty with managing steps alone safely Patient is [place] 70969 moderate complexity based on the following: History: As above Examination:As above Presentation: Evolving Decision Makin moderate complexity Goals: Goals X1 week 1. Supine-Sit independent 2. Sit-Supine independent 3. Sit-Stand independent 4. Stand-Sit independent with FWW 5. Bed-Chair independent with FWW 6. Chair-Bed independent with FWW 7. Independent gait on level surface with use of FWW for at least 300 feet wit hout report of pain nor dyspnea 8. Independent stair negotiation while holding onto B rails for at least 1 step without report of pain nor dyspnea 9. Independent with home exercise program 10. Good static and dynamic standing balance/tolerance Plan of Care/Treatment Plan: 1-2x/day, 7 days/week x 1 week. Plan of care has been reviewed with the VICE PRESIDENT [employer] providing the service under Physical Therapy direction. Initiate Physical Therapy intervention for pain management as needed, strengthening, bed mobility, transfers, gait, stairs, balance training, and use of assistive device. DISCHARGE RECOMMENDATIONS: Home with services. Patient will benefit from home health PT services in order to progress mobility level using least restrictive assistive ambulatory device, assess home safety, identify additional equipment needs, and establish a functional maintenance program that will increase ability of patient to remain at home. TREATMENT CODE/TIME: 68024 x 20 minutes (14:45-15:05). Thank you for the opportunity to participate in the care of this patient. Blanca Torres [facility] Disclaimer: This note was created using [employer] voice recognition software. It was reviewed for major content. However, there may be multiple small discrepancies and errors due to the voice recognition aspects of the software.
[2024-10-07] MEDS: Enoxaparin 30 MG/0.3 ML SYR SC (17:41)
[2024-10-07] MEDS: AZITHROMYCIN 500 MG in Normal Saline 250 ML 250 MG IVPB (20:55)
[2024-10-07] MEDS: Mirtazapine 15 MG TAB 7.5 MG PO (20:56)
[2024-10-07] MEDS: Docusate Sodium 100 MG CAP PO (21:09)
[2024-10-08] VITALS (10 sets, daily range): BP systolic 118–160; BP diastolic 51–72; PULSE 72–103; RESP 16–96; TEMP 36.6–36.9; O2SAT 83–96
[2024-10-08] MEDS: Albuterol 2.5 MG/3 ML INH SOLN VIAL UPD (06:23)
--- NOTE | 2024-10-08 06:38 | NUR.NOTE ---
Nursing Note: 0620 clinical lab specialist entered room to find patient coughing, tachypnic and cyanotic. This RN notified, oxygen saturation found to be 83% on room air, respirations >30, wet, nonproductive, persistent cough. Pt initiated on 4L/min NC, PRN albuterol UPD administered per OCT. Pt able to be titrated down on NC to 1L/min with Spo2 recovery to 94%. MD to bedside during event, pt respirations now even and unlabored, SPO2 WNL.
[2024-10-08 07:01] LABS: Abs Immature Grans 0.15 10^3/uL (0.0-0.06); Absolute Basophil Count 0.04 10^3/uL (0.0-0.2); Absolute Monocyte Count 0.86 10^3/uL (0.1-0.8); Basophils % 0.2 %; Eosinophils % 0.1 %; HCT 33.7 % (36.0-46.0); HGB 10.9 g/dL (11.2-15.7); Immature Grans % 0.8 %; Lymphocytes % 16.3 %; MCH 32.3 pg (27.0-33.0); MCHC 32.3 % (32.0-36.0); MCV 100 fL (80-95); MPV 10.8 fL (8.0-11.0); Monocytes % 4.8 %; Neutrophils % 77.8 %; Platelet Count 292 10^3/uL (130-400); RBC 3.37 10^6/uL (3.93-5.22); RDW 13.1 % (11.7-14.6); RDW-SD 47.7 fL; WBC 17.99 10^3/uL (4.4-10.8)
[2024-10-08 07:03] LABS: Absolute Eosinophil Count 0.02 10^3/uL (0.0-0.7); Absolute Lymphocyte Count 2.93 10^3/uL (1.2-3.4)
[2024-10-08 07:15] LABS: BUN 13 mg/dL (7-18); CREATININE 0.9 mg/dL (0.55-1.02); Calcium 8.8 mg/dL (8.5-10.1); Chloride 108 mmol/L (98-107); Estimated GFR 64.23 (mL/min/1.73m2); Glucose 92 mg/dL (74-106); Potassium 4.1 mmol/L (3.5-5.1); Sodium 145 mmol/L (136-145)
[2024-10-08] MEDS: Dexamethasone 10 MG/ML VIAL 6 MG IVP (08:07)
[2024-10-08] MEDS: Multivitamin TAB 1 TAB PO (08:08)
[2024-10-08] MEDS: Docusate Sodium 100 MG CAP PO ×2 (08:08→20:41)
[2024-10-08] MEDS: Normal Saline Flush 10 ML SYR IVP ×2 (08:08→21:21)
[2024-10-08] MEDS: Calcium Carbonate 1.5 GM TAB PO ×3 (08:08→20:41)
[2024-10-08] MEDS: guaiFENesin 600 MG TABCR 1200 MG PO ×2 (08:08→20:42)
[2024-10-08] MEDS: methIMAzole 5 MG TAB 2.5 MG PO (08:09)
[2024-10-08] MEDS: Metoprolol 50 MG TAB PO ×2 (08:09→21:11)
[2024-10-08] MEDS: Lisinopril 5 MG TAB 2.5 MG PO (08:09)
--- NOTE | 2024-10-08 09:05 | PT.INTREAT ---
Date of service: 10/08/24 Time of Service: 08:50 PT Notes Visit Reasons: Acute hypoxic respiratory failure, Covid Inpatient Physical Therapy Treatment Note [facility] Date: October 08, 2024 PRECAUTIONS:Standard, Falls SUBJECTIVE: Julia notes that she had a really bad coughing spell this morning. She has been up in the bed side chair since however notes that her knee and ankle are really bothering and would like to get back to bed. PM: Julia notes she would like to go to the bathroom. OBJECTIVE: ? PAIN: 5/10 L knee and ankle VITALS: telemetry in place Therapeutic Activities ([id number] minutes): Direct one-on-one instruction in dynamic activities to improve functional performance. ?? BED MOBILITY/TRANSFERS? Rolling L/R: Independent Supine-sit: Independent? Sit-supine: Independent utilizing UE assist for L LE ? Sit-stand: SBA with FWW? Stand-sit: SBA with FWW ? Bed-Chair: SBA with FWW ? Chair-bed: SBA with FWW Provided skilled cues and instruction on performance and technique throughout. Patient education regarding pacing and breathing techniques to maximize activity tolerance? GAIT? Assistive Device: FWW? Weight bearing: AT Assist: SBA ? Distance:? 100 ft ? Deviation: Left hip in external rotation throughout with toe drag L LE.? ? Ambulated to the bathroom with FWW. Stood at sink to wash her hands as well as brush her hair. Dropped the comb and as she reacted mild loss of balance however corrected with use of sink and me for assistance. ? ASSESSMENT:? Tolerated session well however fatigues quickly. Requires cueing for proper breathing and pacing. Demonstrates safe transfers. Will continue to advance functional endurance within symptom allowance. PLAN: Continue with POC TREATMENT CODE/TIME: [id number] minutes 8:50-9:05am; [id number] minutes 13:55-14:15 pm DISCHARGE RECOMMENDATION: Home with services. Patient will benefit from home health PT services in order to progress mobility level using least restrictive assistive ambulatory device, assess home safety, identify additional equipment needs, and establish a functional maintenance program that will increase ability of patient to remain at home. Disclaimer: This note was created using [employer] voice recognition software. It was reviewed for major content. However, there may be multiple small discrepancies and errors due to the voice recognition aspects of the software.
[2024-10-08] MEDS: Levalbuterol HFA 15 GM INH 2 PUFF IH ×3 (11:14→23:52)
--- NOTE | 2024-10-08 12:01 | W.PM.PROGNOT ---
Date of Service Date of service: 10/08/24 Time of Service: 12:01 Assessment and Plan Assessment and plan (1) COPD exacerbation: Status: Acute Assessment and plan: Hypoxic in ED SPO2 ~ 85% on RA and short of breath. Now on RA with sat > 92% Episode of respiratory distress overnight most likely t/ mucous plug- Continue Nebs, IS and acapella; patient had been reluctant to use tools but seems more agreeable today to prevent further events Continue Dexamethasone CXR was negative for acute finding s RT consult completed Wean of for sat 88% and above O2 PRN SPO2 > 88% WBC elevated at 18 from 11 on admission- on decadron Continue Azithromycin 500 mg daily for antiinflammatory aspect (2) COVID: Assessment and plan: Continue dexamethasone -transition to PO up to 10 days or until discharge - beneficial for first 30 days , decreases mortality with O2 requirement - will continue s/p COVID diagnosed 09/11 , positive on 09/23 and this admission , treated with paxlovid ending 09/17. PCR still positive at 3 weeks s/p initial Dx- with hypoxia.- PCR can be positive X 30 days (3) Hyperthyroidism: Status: Chronic Assessment and plan: Continue methimazole, patient was not taking at home On admission Tachy 140s -resolved TSH 0.34- f/u as per PCP outpatient (4) Tachycardia: Status: Acute Assessment and plan: Resolved - since admission with sinus tachycardia related to some mild dehydration, bronchodilators, and uncontrolled hyperthyroidism. Bolus crystalloid one liter in ED- and 500 NS IV on arrival to floor then IVF maintenance Cr 0.9 , BUN 15- tolerating PO- no further IVF ongoing metoprolol, using levalbuterol, methimazole continue Telemetry- SR- HR 80's In setting of hyperthyroidism - was not taking RX at home (5) Smoker: Status: Acute Assessment and plan: Continue NRT - now scheduled Encourage cessation. (6) Subcutaneous mass of back: Assessment and plan: Finding presentsince 2021 s/p fall- on CT scan in 2021, so unlikely malignant, with discoloration- nontender see- hemangioma looking -F/u PCP. (7) Ectatic thoracic aorta: Assessment and plan: PCP f/u,no evidence of dissection or pericardial effusion on CT from 09/23/24 (8) Insomnia: Status: Acute Assessment and plan: Chronic insomnia and poor appetite Ongoing mirtazipine -patient consented s/p discussion with admitting provider Continue PRN melatonin (9) DVT prophylaxis: Status: Deleted Assessment and plan: On lovenox 30 mg - weight adjusted Discussed with Dr. Moffett Subjective Subjective Patient reports: feels better, tolerating liquids well, tolerating a regular diet, voiding w/o difficulty and no bowel movement; denies no new complaints (episode of resp. distress overnight reported), diarrhea, vomiting, shortness of breath or fever Exam Narrative Exam Narrative: Constitutional The patient in bed comfortable without acute distress Neuro:alert and oriented X 4, no focal deficits Resp:Scattered ronchi- clearing with cough; decreased bases bilaterally Cardio: regular rhythm, S1, S2 distant, no murmur GI: Abdomen is not distended, soft and non tender, bowel sounds are present : Negative Costovertebral angle tenderness Back/spine/Pelvis: No back tenderness,kyphosis Integumentary: No skin lesions or rash, non- tender upper back mass from CHIEF MEDICAL OFFICER Extremities: strength 5/5 to bilateral lower and upper extremities Psych: RASS 0, congruent mood and normal to labile affect. Objective Last Vital Signs Temp 36.7 C 10/08/24 11:38 Pulse 72 10/08/24 11:38 Resp 19 10/08/24 11:38 BP 130/60 10/08/24 11:38 Pulse Ox 93 10/08/24 11:38 Laboratory Results - last 24 hr 10/08/24 06:50 WBC 17.99 H RBC 3.37 L Hgb 10.9 L Hct 33.7 L MCV 100 H MCH 32.3 MCHC 32.3 RDW 13.1 Plt Count 292 MPV 10.8 Immature Gran % 0.8 Neutrophils % 77.8 Lymphocytes % 16.3 Monocytes % 4.8 Eosinophils % 0.1 Basophils % 0.2 Nucleated RBC % 0.0 Absolute Neutrophils 14.00 H Absolute Lymphocytes 2.93 Absolute Monocytes 0.86 H Absolute Eosinophils 0.02 Absolute Basophils 0.04 Sodium 145 Potassium 4.1 Chloride 108 H Carbon Dioxide 27.0 Anion Gap 10.0 BUN 13 Creatinine 0.9 Est GFR (CKD-EPI 2020) 64.23 Glucose 92 Calcium 8.8 Time Spent with Patient Time Spent with Patient: >50 minutes Time was spent: preparing to see the patient(eg.review tests), obtaining and/or reviewing separately otained hiistory, ordering medications,tests, procedures, referring, communicating with other health skin care instructor, indepentently interpreting results, counseling the patient and care coordination
[2024-10-08] MEDS: LORazepam 0.5 MG TAB PO (12:38)
[2024-10-08] MEDS: Enoxaparin 30 MG/0.3 ML SYR SC (17:56)
[2024-10-08] MEDS: Mirtazapine 15 MG TAB 7.5 MG PO (20:42)
[2024-10-08] MEDS: AZITHROMYCIN 500 MG in Normal Saline 250 ML 250 MG IVPB (21:21)
[2024-10-09] MEDS: LORazepam 0.5 MG TAB PO (07:36)
[2024-10-09 07:53] VITALS: BP 170/79; PULSE 105; RESP 22; TEMP 36.4; O2SAT 91
[2024-10-09] MEDS: Docusate Sodium 100 MG CAP PO (09:49)
[2024-10-09] MEDS: guaiFENesin 600 MG TABCR 1200 MG PO (09:50)
[2024-10-09] MEDS: Lisinopril 5 MG TAB 2.5 MG PO (09:50)
[2024-10-09] MEDS: Calcium Carbonate 1.5 GM TAB PO (09:50)
[2024-10-09] MEDS: methIMAzole 5 MG TAB 2.5 MG PO (09:50)
[2024-10-09] MEDS: Multivitamin TAB 1 TAB PO (09:51)
[2024-10-09] MEDS: Metoprolol 50 MG TAB PO (09:51)
[2024-10-09] MEDS: Dexamethasone 4 MG TAB 6 MG PO (09:51)
[2024-10-09] MEDS: Levalbuterol HFA 15 GM INH 2 PUFF IH (11:14)
[2024-10-09 11:16] VITALS: O2SAT 93
[2024-10-09 11:27] VITALS: BP 122/57; PULSE 86; RESP 20; TEMP 36.6; O2SAT 94
--- NOTE | 2024-10-09 11:40 | PT.INTREAT ---
PT Notes Visit Reasons: Acute hypoxic respiratory failure, Covid Inpatient Physical Therapy Treatment Note [facility] Date: 10/09/2024 PRECAUTIONS: Falls. Standard. SUBJECTIVE: Agreeable to walking in the hallway with walker. Son Shiva was happy about patient's decision to try. Upset about not getting the tea she ordered for lunch. Dietary staff and EVANS Brown informed. OBJECTIVE: ? PAIN: None reported VITALS: Telemetry in place BED MOBILITY/TRANSFERS: Minimal cueing provided for use of B hands as needed for support, movement sequence, AD management, and posture to reduce fall risk and minimize pain report ?Sit-stand: stand by assist with FWW? Stand-sit: stand by assist with FWW? Bed-Chair: stand by assist with FWW? Chair-bed: stand by assist with FWW? GAIT:? Facilitated safe and correct performance of level surface ambulation covering a distance of 75 feet + 75 feet using front wheeled walker with contact-guard assist and wheelchair follow provided. Left hip in external rotation throughout with foot drag in L, L LE advancement to neutral only and made possible by hiking hip on L. Patient indicated that sthis is her baseline way of walking. ASSESSMENT:? Patient demonstrated improving ability to perform mobility ADL without undue fatigue and no report of pain. PLAN: Progress to prior mobility level, strength, and balance skills as tolerated. TREATMENT CODE/TIME: 40444 x 28 minutes for 2 units (11:40-12:08). DISCHARGE RECOMMENDATION: Home with services. Patient will benefit from home health PT services in order to progress mobility level using least restrictive assistive ambulatory device, assess home safety, identify additional equipment needs, and establish a functional maintenance program that will increase ability of patient to remain at home.
--- NOTE | 2024-10-09 14:24 | DSE_ITS ---
Date of service: 10/09/24 Time of Service: 14:24 DS: Diagnosis Discharge Diagnosis (1) COPD exacerbation: Status: Acute (2) COVID: (3) Hyperthyroidism: Status: Chronic (4) Tachycardia: Status: Acute (5) Smoker: Status: Acute (6) Subcutaneous mass of back: (7) Ectatic thoracic aorta: (8) Insomnia: Status: Acute (9) DVT prophylaxis: Status: Deleted Discharge Plan Disposition Patient Disposition: Home W/Home Health Services Condition: Poor Discharge Details Reason For Visit: Acute hypoxic respiratory failure, Covid Admit Date/Time: 10/06/24 15:36 Admit Provider: Arlen Rausch Attending Provider: Arlen Rausch Primary Care Provider: Dilma Dubose Hospital Course Hospital Course: The patient was admitted for management of acute hypoxic respiratory failure secondary to COVID-19 and a COPD exacerbation. Hospital Course: The patient, an 79-year-old female, presented to the hospital on September 23, 2023, with acute shortness of breath and hypoxia. She has a known history of COPD and was recently diagnosed with COVID-19 on September 11, 2023. She was treated with Paxlovid, completing her course on September 17, 2023, but remained hypoxic on admission. During her hospitalization, she received Levofloxacin for suspected infection, Methylprednisolone for COPD exacerbation, and Dexamethasone for COVID-19 management. Her white blood cell count was elevated at 15,000, likely secondary to steroid therapy. Thyroid function was noted to be abnormal with low TSH and elevated Free T4. The patient was restarted on methimazole to control her hyperthyroidism, she had not been adherent to the medication regimen at home and stopped taking it. A repeat urinalysis showed mild hematuria, but no other significant issues were noted on imaging. [facility] [employer] & Management: * COPD Exacerbation: The patient was hypoxic with SPO2 around 85% on room air upon arrival to the emergency department. She was administered Methylprednisolone in the ED and continued on steroids during her hospital stay. She was treated with nebulized bronchodilators, incentive spirometry, Acapella device, and oxygen therapy to maintain SPO2 above 88%. * COVID-19: The patient?s PCR test was positive for COVID-19 on admission. Despi te being treated with Paxlovid, she continued to require oxygen supplementation and received Dexamethasone for its beneficial effects in reducing mortality in patients with COVID-19 requiring supplemental oxygen for up to a month after diagnosis. * Hyperthyroidism: The patient's thyroid function tests showed low TSH and elevated Free T4, indicating uncontrolled hyperthyroidism. Methimazole was restarted, and the patient was monitored for tachycardia. She was treated with Metoprolol for rate control. * Tachycardia: The patient's tachycardia was likely multifactorial due to mild dehydration, bronchodilator use, and untreated hyperthyroidism. She received IV fluids (1000 ml normal saline in the ED and 500 ml on arrival to the floor), and Metoprolol was resumed. * Subcutaneous Mass (Back): A subcutaneous mass was noted on a CT scan performed in 2021. This was deemed unlikely to be malignant, and follow-up with her primary care provider was recommended. * Ectatic Thoracic Aorta: The patient has a history of an ectatic thoracic aorta, with follow-up recommended as an outpatient. * Insomnia: The patient reported poor sleep and appetite, likely exacerbated by her hospitalization. Mirtazapine was restarted to help with her insomnia and appetite stimulation. Discharge Medications: * Prednisone (Tapering dose) for COPD exacerbation. * Azithromycin 500 mg daily for anti-inflammatory effect in the setting of COVID-19. * Methimazole for hyperthyroidism. * Metoprolol for tachycardia control. * Mirtazapine for insomnia and appetite stimulation. Follow-up Care: * Primary Care Provider for thyroid management and routine follow-up. * Pulmonology for COPD management and possible further respiratory assessment. * Cardiology for monitoring of tachycardia and ectatic thoracic aorta. * Home Health for physical therapy services to improve mobility, assess home safety, and provide any necessary equipment recommendations. Patient Education: * The patient was educated on the importance of medication adherence, especially for methimazole and prednisone, and the need for continued follow-up for her thyroid and COPD management. * Oxygen therapy to be used as needed to maintain SPO2 above 88%. * Dietary recommendations were given due to concerns about decreased appetite and dehydration. * Smoking cessation was encouraged, though nicotine was provided as needed during the hospital stay. L Discharge Plan: The patient will be discharged home with home health services for nursing, social media project manager and physical therapy with a safety assessment. She is a full code and will continue her prescribed medications as noted. The patient is expected to follow up with her PCP and specialists as appropriate. Discharge Instructions: * Follow-up appointments: PCP within 1 week; pulmonology, cardiology, and endocrinology as scheduled. * Medications: Continue prescribed medications. * Dietary: Maintain adequate hydration and nutrition. * Activity: Gradual return to normal activity, with home physical therapy support. * Emergency: Seek medical attention if experiencing increased shortness of breath, chest pain, or other significant concerns. Home Meds and New Rx's Prescriptions: New guaifenesin [Mucus Relief ER] 600 mg Tablet Extended Release 12hr 1,200 mg PO BID Qty: 0 0RF azithromycin 500 mg tablet 500 mg PO DAILY 5 Days Qty: 5 0RF prednisone 20 mg tablet See Taper PO DAILY Qty: 27 0RF Taper: Prednisone 20mg taper 40 mg Daily for 3 Days and 0 Hour 20 mg Daily for 3 Days and 0 Hour 10 mg Daily for 3 Days and 0 Hour Continued multivitamin Tablet 1 tab PO DAILY metoprolol tartrate 100 mg Tablet 50 mg PO BID calcium carbonate 600 mg calcium (1,500 mg) Tablet 600 mg PO TID methimazole 5 mg Tablet 2.5 mg PO DAILY lisinopril 5 mg Tablet 2.5 mg PO DAILY melatonin 3 mg Tablet 3 mg PO HS Qty: 0 0RF mirtazapine 15 mg Tablet 7.5 mg PO HS Qty: 30 0RF albuterol sulfate [Ventolin HFA] 90 mcg/actuation HFA aerosol inhaler 2 puff INHALATION Q6H Combivent Respimat 20-100 mcg/actuation mist 1 puff inhalation Q6H PRN (Reason: shortness of breath or wheezing) Qty: 4 0RF Discharge Instructions Instructions: Azithromycin (Systemic), Exacerbation of COPD (DC), Medicines for COPD, Prednisone Additional Instructions: Follow up with PCP regarding inhaled corticosteroids. Take azithromycin until course is completed (5 days) Take predisone 40 mg for three days; 20 mg for 3 days; 10 mg for 3 days. Stand Alone Forms: Nursing Discharge Form Referrals: Dilma Dubose [Primary Care Provider] - (I left a message with the office, they will call you to confirm your upcoming appointment. 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) Activity:: Activity as Tolerated Equipment/Supplies:: No Equipment Needed Diet:: As Tolerated Discharge Orders Discharge Orders: Discharge Order (Routine); Ordered 10/09/24 Ordered By: Arlen Rausch Discharge Data Discharge Date/Time-TO BE ENTERED AT DEPARTURE: 10/09/24 14:41 DS: Summary Time Spent with Patient providing and/or coordinating discharge services: Greater than 30 minutes Status at Discharge Functional status at discharge: uses cane/walker Overall status at discharge: patient is not back to baseline Mental Status: mental status grossly normal Speech and Movement: speech and movement normal Mood: congruent mood Affect: normal affect Quality:SDOH Health Related Social Needs: Health related social needs housing instability, house d, with risk of homelessness (Z59.811) Exam Const General: cooperative and no acute distress Orientation: alert Other: awake, alert, oriented, skin thick, dry, wrinkled, and leathery HENMT Head: normal to inspection Ears: external ears normal General nose exam: external nose normal Mouth: moist mucous membranes Eyes General: appearance normal, both eyes and all related structures Neck Neck: normal visual inspection Resp Auscultation: wheezes Cardio Jugular venous pressure: no JVD Rate: regular rate Skin General skin exam: no rashes or lesions noted, turgor decreased and other (thick, dry, wrinkled, and leathery ) Neuro General: patient alert Extrem General: normal to inspection Psych Mental Status: mental status grossly normal Speech and Movement: speech and movement normal Mood: congruent mood Affect: normal affect DS: Data Vitals/I&O Vitals and I&O: Vital Signs Temperature 36.6 C 10/09/24 11:27 Temperature Source Temporal Artery Scan 10/09/24 11:27 Pulse 86 10/09/24 11:27 Pulse Rhythm Regular 10/06/24 16:54 Pulse 127 H 10/06/24 16:20 Respiratory Rate 20 10/09/24 11:27 Respiratory Effort Short of Breath, Labored, Accessory Muscle Use, Incrsd Work of Breathing 10/06/24 16:54 Respiratory Depth Shallow 10/06/24 16:54 Respiratory Pattern Tachypnea 10/06/24 16:54 Blood Pressure 122/57 L 10/09/24 11:27 Blood Pressure Mean 72 10/06/24 16:15 Blood Pressure Position Sitting 10/06/24 10:31 Pulse Oximetry 94 10/09/24 11:27 Oxygen Delivery Method Room Air 10/09/24 11:27 Oxygen Flow Rate 0 10/09/24 11:27 Pain Level 10 10/08/24 22:49 Comment Pt refused vitals, stating, I don't need those right now. 10/09/24 03:48 Comment DENISE Tellez aware of HR 10/06/24 13:42 Intake & Output 10/08/24 10/09/24 10/09/24 23:59 11:59 23:59 Intake Total 250 / 500 360 / 720 360 / 720 Output Total 400 / 900 Balance -150 / -400 360 / 720 360 / 720 Intake: IV 250 / 500 Oral 360 / 720 360 / 720 Output: Urine 400 / 900 Other: Urine Color Yellow Yellow Urine Appearance Clear Clear Urine Odor Normal PFSH All Active Problems (Updated 10/06/24 @ 15:47 by DENISE Tellez) COVID (Acute) Respiratory failure (Acute) Insomnia (Acute) Community acquired pneumonia (Acute) Smoker (Acute) Tachycardia (Acute) Hyperthyroidism (Chronic) COPD exacerbation (Acute) Shortness of breath (Acute) Acute UTI (Acute) Cough (Acute) Fatigue (Acute) Anorexia (Acute) Hyperlipidemia (Acute) Hypertension (Chronic) Medical History (Updated 10/06/24 @ 15:47 by DENISE Tellez) Ectatic thoracic aorta 4cm Subcutaneous mass of back COVID Surgical History S/P appendectomy Family History Son Diabetes Social History Smoking/Tobacco Use Status: Former Tobacco Use Quit Date: 09/23/24 Tobacco: How many years used: 60 Smoking risk assessment performed?: Yes Alcohol Intake: former Substance use type: does not use Housing: house Do you feel safe at home: Yes Do you feel safe in your relationship?: Yes Additional Social history: Lives with son and 3 kids in [place] Time Spent with Patient Time Spent with Patient: 45-69 minutes Time was spent: preparing to see the patient(eg.review tests), ordering medications,tests, procedures, referring, communicating with other health career and guidance counselor, indepentently interpreting results, counseling the patient and care coordination
--- NOTE | 2024-10-09 14:51 | PT.INTREAT ---
PT Notes Visit Reasons: Acute hypoxic respiratory failure, Covid Inpatient Physical Therapy Treatment Note [facility] Date: 10/09/2024 PRECAUTIONS:Standard, Falls SUBJECTIVE: Pt reports she was rudely awoken by someone this morning and it has since made her anxious and hard to catch her breath. PM: Pt reports feeling much better this afternoon with her son here. She states she thinks she is going home today but would like to walk to make sure she can do it at home. OBJECTIVE: ? PAIN: 09/08 L knee and ankle VITALS: telemetry in place Therapeutic Activities (32005): Direct one-on-one instruction in dynamic activities to improve functional performance. ?? (am/pm)BED MOBILITY/TRANSFERS? Rolling L/R: Independent Supine-sit: Independent? Sit-supine: Independent utilizing UE assist for L LE ? Sit-stand: SBA with FWW? Stand-sit: SBA with FWW ? Bed-Chair: SBA with FWW ? Chair-bed: SBA with FWW Provided skilled cues and instruction on performance and technique throughout. Patient education regarding pacing and breathing techniques to maximize activity tolerance? (pm) ambulation: ? Assistive Device: FWW? Weight bearing: AT Assist: SBA ? Distance:? 250 ft x 1 100 feet x 1? Deviation: Left hip in external rotation throughout with toe drag L LE.? ? ASSESSMENT:?Pt very anxious in am session but then Tolerated pm session very well . In am Requires cueing for proper breathing and pacing.In pm pt with no SOB at rest and slight GIL after ambulating 250 feet. Son present throughout pm session providing encouragement and reporting this is how she walked at home. Demonstrates safe transfers. PLAN: Continue with POC TREATMENT CODE/TIME:(am) [id number] minutes [id number]; (pm) [id number] minutes 13:20-1345 pm DISCHARGE RECOMMENDATION: Home with services. Patient will benefit from home health PT services in order to progress mobility level using least restrictive assistive ambulatory device, assess home safety, identify additional equipment needs, and establish a functional maintenance program that will increase ability of patient to remain at home.
--- NOTE | 2024-10-09 16:34 | CMDISCH_ITS ---
Date of service: 10/09/24 Time of Service: 16:34 LACE Index Scoring Tool Questions: Length of Stay (in days): 3 Was the patient admitted via the E.D.?: Yes Comorbidities: Chronic Pulmonary Disease E.D. Visits: 2 Answers: Total Score: 10 Risk of Readmission: High Risk Care Management Discharge Plan Reason for Hospitalization: acute hypoxic resp failure Discharge Plan: Julia returned home today with a resumption of HH services. Her son drove her home via private vehicle. She will follow up with her PCP and discharge plan of care. Patient/Family Education Needs: Review discharge instructions and limitations, discussion of self care needs including ask me three. Services Needed at Discharge: Home Health Care Services (resume ) SDOH Health Related Social Needs: Health related social needs housing instability, house d, with risk of homelessness (Z59.811)
--- NOTE | 2024-10-09 17:22 | PDOC.HHF2F_ITS ---
Home Health Referral Home Health Orders Clinical synopsis of why skilled professionals are needed: The patient was admitted for management of acute hypoxic respiratory failure secondary to COVID-19 and a COPD exacerbation. Hospital Course: The patient, an 79-year-old female, presented to the hospital on September 23, 2023, with acute shortness of breath and hypoxia. She has a known history of COPD and was recently diagnosed with COVID-19 on September 11, 2023. She was treated with Paxlovid, completing her course on September 17, 2023, but remained hypoxic on admission. During her hospitalization, she received Levofloxacin for suspected infection, Methylprednisolone for COPD exacerbation, and Dexamethasone for COVID-19 management. Her white blood cell count was elevated at 15,000, likely secondary to steroid therapy. Thyroid function was noted to be abnormal with low TSH and elevated Free T4. The patient was restarted on methimazole to control her hyperthyroidism, she had not been adherent to the medication regimen at home and stopped taking it. A repeat urinalysis showed mild hematuria, but no other significant issues were noted on imaging. [employer] [facility]: * COPD Exacerbation: The patient was hypoxic with SPO2 around 85% on room air upon arrival to the emergency department. She was administered Methylprednisolone in the ED and continued on steroids during her hospital stay. She was treated with nebulized bronchodilators, incentive spirometry, Acapella device, and oxygen therapy to maintain SPO2 above 88%. * COVID-19: The patient?s PCR test was positive for COVID-19 on admission. Despite being treated with Paxlovid, she continued to require oxygen supplementation and received Dexamethasone for its beneficial effects in reducing mortality in patients with COVID-19 requiring supplemental oxygen for up to a month after diagnosis. * Hyperthyroidism: The patient's thyroid function tests showed low TSH and elevated Free T4, indicating uncontrolled hyperthyroidism. Methimazole was restarted, and the patient was monitored for tachycardia. She was treated with Metoprolol for rate control. * Tachycardia: The patient's tachycardia was likely multifactorial due to mild dehydration, bronchodilator use, and untreated hyperthyroidism. She received IV fluids (1000 ml normal saline in the ED and 500 ml on arrival to the floor), and Metoprolol was resumed. * Subcutaneous Mass (Back): A subcutaneous mass was noted on a CT scan performed in 2021. This was deemed unlikely to be malignant, and follow-up with her primary care provider was recommended. * Ectatic Thoracic Aorta: The patient has a history of an ectatic thoracic aorta, with follow-up recommended as an outpatient. * Insomnia: The patient reported poor sleep and appetite, likely exacerbated by her hospitalization. Mirtazapine was restarted to help with her insomnia and appetite stimulation. Discharge Medications: * Prednisone (Tapering dose) for COPD exacerbation. * Azithromycin 500 mg daily for anti-inflammatory effect in the setting of COVID-19. * Methimazole for hyperthyroidism. * Metoprolol for tachycardia control. * Mirtazapine for insomnia and appetite stimulation. Follow-up Care: * Primary Care Provider for thyroid management and routine follow-up. * Pulmonology for COPD management and possible further respiratory assessment. * Cardiology for monitoring of tachycardia and ectatic thoracic aorta. * Home Health for physical therapy services to improve mobility, assess home safety, and provide any necessary equipment recommendations. Patient Education: * The patient was educated on the importance of medication adherence, especially for methimazole and prednisone, and the need for continued follow-up for her thyroid and COPD management. * Oxygen therapy to be used as needed to maintain SPO2 above 88%. * Dietary recommendations were given due to concerns about decreased appetite and dehydration. * Smoking cessation was encouraged, though nicotine was provided as needed during the hospital stay. Discharge Plan: The patient will be discharged home with home health services for nursing, social media developer and physical therapy with a safety assessment. She is a full code and will continue her prescribed medications as noted. The patient is expected to follow up with her PCP and specialists as appropriate. Discharge Instructions: * Follow-up appointments: PCP within 1 week; pulmonology, cardiology, and endocrinology as scheduled. * Medications: Continue prescribed medications. * Dietary: Maintain adequate hydration and nutrition. * Activity: Gradual return to normal activity, with home physical therapy support. * Emergency: Seek medical attention if experiencing increased shortness of breath, chest pain, or other significant concerns. Medical diagnosis necessitation home health referral: COPD; Acute hypoxic respiratory failure Registered Nurse: Check all that apply Instruct on new or changed medication(s)/assess compliance: Ordered Assess for exacerbation of medical condition, instruct patient/caregivers on signs and symptoms to report for early detection: Ordered Physical Therapist: Check all that apply Increase strength & endurance for safe mobility at home: Ordered To design/establish home maintenance program: Ordered Fall reduction therapy program for patient with history of frequent falls: Ordered Home safety evaluation and teaching/gait training including stair management (if applicable): Ordered Better Breathing Program: Ordered Product Director: Assist with community resources: Ordered Assist with manager long term care care planning: Ordered Home Bound Status Requires the aid of supportive device (check all that apply): Walker Patient has a condition such that leaving home is medically contraindicated (Describe): Patient is unable to walk any distance without assistance, and she becomes short of breath and has to stop after a few steps. Describe why leaving home would require a considerable and taxing effort: Requires frequent rest periods and Oxygen Encounter Date and Reason: I certify that a FTF encounter for this patient was performed on October 09, 2024 and that such encounter was related to the primary reason the patient requ ires home health services. The encounter was conducted in the following manner: * By me as the certifying physician, HARNESS PULLER, PA or * By an inpatient physician, HARNESS PULLER or PA during an inpatient stay who communicated findings to me, Certification And Authentication I certify that I composed the above information based on my clinical judgment relating to this patient's medical condition and, if applicable, clinical findings communicated to me by the NPP or inpatient physician who performed the FTF encounter. Name of Provider that will be monitoring home health services: Dilma Dubose
== END 2024-10-09 14:41 | disposition home health service (06) | DRG 190 ==
LOC: ER 15:47 → MS 16:40
PROVIDERS: Nurse Practitioner Acute Care; Admitting Provider Nurse Practitioner Family; Emergency Provider Physician Assistant; PCP Physician Assistant Medical; Visit Provider Nurse Practitioner Family
DX: J44.1 Chronic obstructive pulmonary disease with (acute) exacerbation (principal); J96.01 Acute respiratory failure with hypoxia; U07.1 COVID-19; Z68.1 Body mass index [BMI] 19.9 or less, adult; E05.90 Thyrotoxicosis, unspecified without thyrotoxic crisis or storm; R00.0 Tachycardia, unspecified; F17.200 Nicotine dependence, unspecified, uncomplicated; I77.810 Thoracic aortic ectasia; G47.00 Insomnia, unspecified; E86.0 Dehydration; R63.0 Anorexia; E78.5 Hyperlipidemia, unspecified; I10 Essential (primary) hypertension; D72.829 Elevated white blood cell count, unspecified; R22.2 Localized swelling, mass and lump, trunk
CPT/HCPCS: 00123; 36415; 80048; 80053; 82805; 83690; 84145; 87637; 93005; 94640; 94761; 96361; 96374; 97162; 97530; 99291; 71046; 81003; 83605; 83735; 83880; 84439; 84443; 84484; 85025; 93010; 94664; 94667; 94668; 94760; 99222; 99233; 99239; J0456; J1100; J1650; J2919; J7613; J7620; J8540